=== PATIENT | female | born 1945 | race Caucasian/White ===

== ENCOUNTER 2016-09-21 13:37 | Outpatient (CLI) | payer MEDICARE, OTHER | END 2016-09-21 23:59 | DX: E11.9 Type 2 diabetes mellitus without complications (principal) ==

== ENCOUNTER 2016-12-06 07:30 | Outpatient (CLI) | payer MEDICARE, OTHER | END 2016-12-06 07:31 | disposition home or self-care (01) | DX: E11.9 Type 2 diabetes mellitus without complications (principal) ==

== ENCOUNTER 2017-03-12 15:53 | Outpatient (CLI) | payer MEDICARE, OTHER ==
[2017-03-12 13:22] LABS: ALBUMIN/GLOBULIN RATIO 1.1 (1.0-2.2); BILIRUBIN,TOTAL 0.3 mg/dL (0.2-1.0); CALCIUM 9.5 mg/dL (8.5-10.3); CREATININE 0.9 mg/dL (0.4-1.0); POTASSIUM 3.6 mmol/L (3.5-5.0); TOTAL PROTEIN 7.7 g/dL (6.7-8.2)
[2017-03-12 14:36] LABS: HEMOGLOBIN A1C 0.78 g/dL
== END 2017-03-12 15:54 | disposition home or self-care (01) ==
LOC: LAB.WCP 15:53
PROVIDERS: ATTEND Physician Assistant Medical
DX: E11.9 Type 2 diabetes mellitus without complications (principal)
CPT/HCPCS: 36415; 80053; 83036

== ENCOUNTER 2017-07-18 09:30 | Outpatient (CLI) | payer MEDICARE, OTHER ==
--- NOTE | 2017-07-25 07:21 | Mammography Report ---
EXAM: DIGITAL BILATERAL SCREENING MAMMOGRAM 07/18/2017. CLINICAL INDICATION: A 72-year-old for screening. COMPARISON: 07/2016, 07/2015, 07/2014, 05/2013, 03/2012, 03/2011, 03/2010. TECHNIQUE: Routine CC and MLO projections, as well as bilateral laterally exaggerated craniocaudal views were obtained of the breasts. FINDINGS: The breasts again demonstrate fatty replacement bilaterally. Punctate , typically benign calcifications are present. No suspicious masses, clustered microcalcifications, or regions of architectural distortion are identified. IMPRESSION: Benign findings. RECOMMENDATIONS: Routine annual screening unless otherwise clinically indicated. BIRADS 2: Benign findings. STANDARD QUALIFYING STATEMENTS 1. This examination was reviewed with the aid of Computed-Aided Detection (CAD). 2. A negative or benign imaging report should not delay biopsy if clinically suspicious findings are present. Consider surgical consultation if warranted. More than 5% of cancers are not identified by imaging. 3. Dense breasts may obscure an underlying neoplasm. TD: 07/19/2017 20:10 ISAC
== END 2017-07-18 09:31 | disposition home or self-care (01) ==
LOC: DI.N 09:30
PROVIDERS: ATTEND Physician Assistant Medical
DX: Z12.31 Encounter for screening mammogram for malignant neoplasm of breast (principal)
CPT/HCPCS: 77067

== ENCOUNTER 2017-07-30 07:04 | Outpatient (CLI) | payer MEDICARE, OTHER | END 2017-07-30 07:05 | disposition critical access hospital (66) | LOC: EMS 07:04 | PROVIDERS: ATTEND Surgery | DX: R19.7 Diarrhea, unspecified (principal) ==

== ENCOUNTER 2017-07-30 07:26 | Emergency (ER) | payer MEDICARE, OTHER ==
[2017-07-30 08:00] LABS: BASOPHILS % (AUTO) 0.1 %; EOSINOPHILS # (AUTO) 0.1 10^3/uL (0.0-0.7); EOSINOPHILS % (AUTO) 0.5 %; HCT - HEMATOCRIT 45.1 % (37.0-47.0); HGB - HEMOGLOBIN 15.4 g/dL (12.0-16.0); LYMPHOCYTES # (AUTO) 0.4 10^3/uL (1.5-3.5); MEAN CORPUSCULAR HEMOGLOBIN 31.5 pg (27.0-31.0); MEAN CORPUSCULAR HGB CONC 34.2 g/dL (32.0-36.0); MEAN CORPUSCULAR VOLUME 92.2 fL (81.0-99.0); MEAN PLATELET VOLUME 7.8 fL (7.9-10.8); MONOCYTES # (AUTO) 0.3 10^3/uL (0.0-1.0); MONOCYTES % (AUTO) 3.1 %; NEUTROPHILS # (AUTO) 9.9 10^3/uL (1.5-6.6); NEUTROPHILS % (AUTO) 92.3 %; RED CELL DISTRIBUTION WIDTH 14.5 % (12.0-15.0); UNCORRECTED WHITE BLOOD COUNT 10.7 x10^3/uL; WHITE BLOOD COUNT 10.7 x10^3/uL (4.8-10.8)
[2017-07-30 08:21] LABS: ALBUMIN/GLOBULIN RATIO 1.3 (1.0-2.2); BILIRUBIN,TOTAL 0.6 mg/dL (0.2-1.0); CALCIUM 9.4 mg/dL (8.5-10.3); POTASSIUM 3.6 mmol/L (3.5-5.0)
--- NOTE | 2017-07-30 08:40 | ED Physician Documentation ---
PD HPI NVD - Stated complaint Stated Complaint: DIARRHEA - Chief complaint Chief Complaint: General - History obtained from History obtained from: Patient, EMS - History of Present Illness Timing - onset: Today Timing - details: Gradual onset, Still present Associated symptoms: No: Fever, Abdominal pain Similar symptoms before: Has not had sx before Recently seen: Not recently seen - Additonal information Additional information: Patient is a 72 year old female who is presenting to the emergency department for diarrhea. Patient states that this morning for the last two hours she has had multiple episodes of watery diarrhea. Patient denies any blood or mucus in the diarrhea. Patient states that it would not stop so she called ems. Review of Systems Constitutional: denies: Fever, Chills, Sweats Eyes: reports: Reviewed and negative Ears: reports: Reviewed and negative Nose: denies: Rhinorrhea / runny nose, Congestion, Sinus pressure / pain Throat: denies: Sore throat Cardiac: denies: Chest pain / pressure, Palpitations Respiratory: denies: Cough, Wheezing GI: reports: Diarrhea. denies: Nausea, Vomiting : denies: Dysuria, Frequency Skin: denies: Rash, Lesions Musculoskeletal: denies: Neck pain, Back pain Neurologic: denies: Generalized weakness, Focal weakness, Numbness PD PAST MEDICAL HISTORY - Past Medical History Past Medical History: Yes Cardiovascular: Hypertension, High cholesterol Respiratory: Asthma Endocrine/Autoimmune: Type 2 diabetes, HyPOthyroidism Psych: Depression - Present Medications Home Medications: Ambulatory Orders Medication Instructions Recorded Confirmed Celecoxib [Celecoxib] 07/30/17 Clotrimazole 1% Cream [Lotrimin 1% 07/30/17 Cream] Felodipine [Felodipine ER] 07/30/17 Fluticasone 44 Mcg [Flovent] 07/30/17 07/30/17 Lisinopril [Lisinopril] 07/30/17 Ondansetron Odt [Zofran] 4 mg TL Q6H PRN #14 tablet 07/30/17 Simvastatin [Simvastatin] 07/30/17 hydroCHLOROthiazide [Hydrodiuril] 25 mg PO DAILY 07/30/17 07/30/17 - Allergies Allergies/Adverse Reactions: Allergies Allergy/AdvReac Type Severity Reaction Status Date / Time adhesive tape Allergy Rash Verified 07/30/17 07:36 meperidine [From Demerol] Allergy Unknown Verified 07/30/17 07:36 Penicillins Allergy Unknown Verified 07/30/17 07:36 propoxyphene [From Darvon] Allergy Unknown Verified 07/30/17 07:36 - Social History Does the pt smoke?: No Smoking Status: Never smoker PD ED PE NORMAL - Vitals Vital signs reviewed: Yes - General General: Alert and oriented X 3, No acute distress, Well developed/nourished - HEENT HEENT: Atraumatic, PERRL - Neck Neck: Supple, no meningeal sign, No JVD - Cardiac Cardiac: RRR, No murmur - Respiratory Respiratory: No respiratory distress, Clear bilaterally - Abdomen Abdomen: Soft - Derm Derm: Normal color, Warm and dry, No rash - Neuro Neuro: Alert and oriented X 3, No motor deficit, No sensory deficit, Normal speech - Psych Psych: Normal mood PD ED PE EXPANDED - HEENT HEENT: Dry mucous membranes - Abdomen Abdomen: Hyperactive BS. No: Tender to palpation, Rebound, Guarding Results - Vitals Vitals: Vital Signs - 24 hr 07/30/17 07:30 Temperature 35.8 C L Heart Rate 97 Respiratory 18 Rate Blood Pressure 157/87 H O2 Saturation 98 Oxygen O2 Source Room air - Labs Labs: Laboratory Tests 07/30/17 07/30/17 07:49 07:49 WBC 10.7 RBC 4.90 Hgb 15.4 Hct 45.1 MCV 92.2 MCH 31.5 H MCHC 34.2 RDW 14.5 Plt Count 309 MPV 7.8 L Neut # 9.9 H Lymph # 0.4 L [place] # 0.3 Eos # 0.1 Baso # 0.0 Absolute Nucleated RBC 0.00 Nucleated RBC % 0.0 Sodium 137 Potassium 3.6 Chloride 99 L Carbon Dioxide 26 Anion Gap 12.0 BUN 34 H Creatinine 1.0 Estimated GFR (MDRD) 54 L Glucose 188 H Calcium 9.4 Total Bilirubin 0.6 AST 37 ALT 34 Alkaline Phosphatase 67 Total Protein 8.0 Albumin 4.5 Globulin 3.5 Albumin/Globulin Ratio 1.3 Lipase 33 PD MEDICAL DECISION MAKING - ED course Complexity details: reviewed old records, reviewed results, re-evaluated patient , considered differential, d/w patient ED course: Patient was seen and examined at bedside. patient was well appearing and in no acute distress. labs were drawn and within normal limits. patient was able to tolerate PO without difficulty. patient required no further work up and was stable for discharge with outpatient follow up. Departure - Departure Disposition: 01 Home, Self Care Clinical Impression: Gastroenteritis Condition: Good Instructions: ED Gastroenteritis Viral Follow-Up: Elizabeth Matos PA-C [Primary Care Provider] - Within 3 Days Prescriptions: Ondansetron Odt [Zofran] 4 mg TL Q6H PRN #14 tablet PRN Reason: Nausea / Vomiting Comments: Your diagnostics today were within normal limits. there were no major abnormalities on your blood work. It is important that you stay well hydrated with an electrolyte solution. You can take an occasional immodium as well to help with the diarrhea. You may develop some nausea and vomiting as well as the disease progresses. You should follow up with your doctor if your symptoms persist for more than the next few days.
[2017-07-30 09:19] VITALS: BP 135/82
== END 2017-07-30 09:20 | disposition home or self-care (01) ==
LOC: EDUNIT# → ED 07:26
DX: K52.9 Noninfective gastroenteritis and colitis, unspecified (principal); I10 Essential (primary) hypertension; E78.00 Pure hypercholesterolemia, unspecified; E11.9 Type 2 diabetes mellitus without complications; E03.9 Hypothyroidism, unspecified; J45.909 Unspecified asthma, uncomplicated
CPT/HCPCS: 36415; 80053; 83690; 85025; 99283; 99284

== ENCOUNTER 2017-07-30 14:44 | Outpatient (CLI) | payer MEDICARE, OTHER | END 2017-07-30 14:45 | disposition short-term general hospital (02) | LOC: EMS 14:44 | PROVIDERS: ATTEND Surgery | DX: R19.7 Diarrhea, unspecified (principal); R42 Dizziness and giddiness; R53.1 Weakness | CPT/HCPCS: A0425; A0429; A0888 ==

== ENCOUNTER 2017-09-18 07:17 | Outpatient (CLI) | payer MEDICARE, OTHER ==
[2017-09-18 12:48] LABS: HEMOGLOBIN A1C 0.85 g/dL
[2017-09-18 12:54] LABS: ALBUMIN 4.1 g/dL (3.2-5.5); ALBUMIN/GLOBULIN RATIO 1.2 (1.0-2.2); ALKALINE PHOSPHATASE 59 IU/L (42-121); ALT ALANINE AMINOTRANSFERASE 27 IU/L (10-60); AST ASPARTATE AMINOTRANSFERASE 28 IU/L (10-42); BILIRUBIN,TOTAL 0.5 mg/dL (0.2-1.0); BUN - BLOOD UREA NITROGEN 26 mg/dL (6-20); CALCIUM 9.4 mg/dL (8.5-10.3); CARBON DIOXIDE - CO2 28 mmol/L (21-32); CHLORIDE 102 mmol/L (101-111); CHOL/HDL RATIO 2.5 (<4.4); CHOLESTEROL 158 mg/dL; GFR - MDRD 54 (>89); GLUCOSE 166 mg/dL (70-100); HDL CHOLESTEROL 62 mg/dL; LDL CHOLESTEROL,CALCULATED 66 mg/dL; LDL/HDL RATIO 1.1 (<4.4); SODIUM 138 mmol/L (135-145); TOTAL PROTEIN 7.5 g/dL (6.7-8.2); VLDL CHOLESTEROL 30 mg/dL
== END 2017-09-18 07:18 | disposition home or self-care (01) ==
LOC: LAB.WCP 07:17
PROVIDERS: ATTEND Physician Assistant Medical
DX: E11.9 Type 2 diabetes mellitus without complications (principal)
CPT/HCPCS: 36415; 80053; 80061; 83036; 83721

== ENCOUNTER 2017-12-25 08:00 | Outpatient (CLI) | payer MEDICARE, OTHER ==
[2017-12-25 12:35] LABS: ALBUMIN 4.1 g/dL (3.2-5.5); ALBUMIN/GLOBULIN RATIO 1.3 (1.0-2.2); ALKALINE PHOSPHATASE 55 IU/L (42-121); ALT ALANINE AMINOTRANSFERASE 29 IU/L (10-60); AST ASPARTATE AMINOTRANSFERASE 27 IU/L (10-42); BILIRUBIN,TOTAL 0.6 mg/dL (0.2-1.0); BUN - BLOOD UREA NITROGEN 31 mg/dL (6-20); CALCIUM 8.9 mg/dL (8.5-10.3); CARBON DIOXIDE - CO2 26 mmol/L (21-32); CHLORIDE 99 mmol/L (101-111); GFR - MDRD 54 (>89); GLUCOSE 145 mg/dL (70-100); SODIUM 135 mmol/L (135-145); TOTAL PROTEIN 7.3 g/dL (6.7-8.2)
[2017-12-25 12:48] LABS: HB2 TOTAL 15.8 g/dL; HEMOGLOBIN A1C 0.91 g/dL; HEMOGLOBIN A1C % 7.4 % (4.6-6.2)
== END 2017-12-25 08:01 | disposition home or self-care (01) ==
LOC: LAB.WCP 08:00
PROVIDERS: ATTEND Physician Assistant Medical
DX: E11.9 Type 2 diabetes mellitus without complications (principal); E03.9 Hypothyroidism, unspecified
CPT/HCPCS: 36415; 80053; 83036; 84443

== ENCOUNTER 2018-01-01 10:20 | Outpatient (CLI) | payer MEDICARE, OTHER | END 2018-01-01 10:21 | disposition home or self-care (01) | LOC: LAB.WCP 10:20 | PROVIDERS: ATTEND Physician Assistant Medical | DX: L02.91 Cutaneous abscess, unspecified (principal) | CPT/HCPCS: 87070; 87205 ==

== ENCOUNTER 2018-04-04 07:02 | Outpatient (CLI) | payer MEDICARE, OTHER ==
[2018-04-04 13:44] LABS: ALBUMIN 4.4 g/dL (3.2-5.5); ALBUMIN/GLOBULIN RATIO 1.3 (1.0-2.2); ALKALINE PHOSPHATASE 54 IU/L (42-121); ALT ALANINE AMINOTRANSFERASE 29 IU/L (10-60); AST ASPARTATE AMINOTRANSFERASE 31 IU/L (10-42); BILIRUBIN,TOTAL 0.4 mg/dL (0.2-1.0); BUN - BLOOD UREA NITROGEN 31 mg/dL (6-20); CALCIUM 9.6 mg/dL (8.5-10.3); CARBON DIOXIDE - CO2 25 mmol/L (21-32); CHLORIDE 100 mmol/L (101-111); CHOL/HDL RATIO 2.1 (<4.4); CHOLESTEROL 145 mg/dL; CREATININE 0.9 mg/dL (0.4-1.0); GFR - MDRD 61 (>89); GLUCOSE 159 mg/dL (70-100); HDL CHOLESTEROL 69 mg/dL; LDL CHOLESTEROL,CALCULATED 51 mg/dL; LDL/HDL RATIO 0.7 (<4.4); SODIUM 136 mmol/L (135-145); TOTAL PROTEIN 7.8 g/dL (6.7-8.2); VLDL CHOLESTEROL 25 mg/dL
[2018-04-04 14:06] LABS: HB2 TOTAL 16.3 g/dL; HEMOGLOBIN A1C 0.89 g/dL; HEMOGLOBIN A1C % 7.1 % (4.6-6.2)
== END 2018-04-04 07:03 | disposition home or self-care (01) ==
LOC: LAB.WCP 07:02
PROVIDERS: ATTEND Physician Assistant Medical
DX: E11.9 Type 2 diabetes mellitus without complications (principal)
CPT/HCPCS: 36415; 80053; 80061; 83036; 83721

== ENCOUNTER 2018-07-08 12:03 | Outpatient (CLI) | payer MEDICARE, OTHER ==
[2018-07-08 14:51] LABS: ALBUMIN 4.3 g/dL (3.2-5.5); ALBUMIN/GLOBULIN RATIO 1.3 (1.0-2.2); BILIRUBIN,TOTAL 0.6 mg/dL (0.2-1.0); TOTAL PROTEIN 7.7 g/dL (6.7-8.2)
[2018-07-08 15:04] LABS: THYROID STIMULATING HORMONE 1.83 uIU/mL (0.34-5.60)
[2018-07-08 15:20] LABS: BASOPHILS % (AUTO) 0.9 %; EOSINOPHILS # (AUTO) 0.1 10^3/uL (0.0-0.7); EOSINOPHILS % (AUTO) 2.4 %; HGB - HEMOGLOBIN 14.5 g/dL (12.0-16.0); LYMPHOCYTES # (AUTO) 1.6 10^3/uL (1.5-3.5); LYMPHOCYTES % (AUTO) 31.8 %; MEAN CORPUSCULAR HEMOGLOBIN 32.6 pg (27.0-31.0); MEAN CORPUSCULAR HGB CONC 34.1 g/dL (32.0-36.0); MEAN CORPUSCULAR VOLUME 95.4 fL (81.0-99.0); MEAN PLATELET VOLUME 8.6 fL (7.9-10.8); MONOCYTES # (AUTO) 0.4 10^3/uL (0.0-1.0); NEUTROPHILS # (AUTO) 2.8 10^3/uL (1.5-6.6); NEUTROPHILS % (AUTO) 56.9 %; PLT - PLATELET COUNT 345 10^3/uL (130-450); RED BLOOD COUNT 4.44 10^6/uL (4.20-5.40); RED CELL DISTRIBUTION WIDTH 13.2 % (12.0-15.0)
[2018-07-08 15:41] LABS: HB2 TOTAL 15.8 g/dL; HEMOGLOBIN A1C 0.83 g/dL
[2018-07-08 15:53] LABS: FOLATE > 49.60 ng/mL (5.90 - >24.8)
== END 2018-07-08 23:59 ==
LOC: LAB.WCP 12:03
PROVIDERS: ATTEND Physician Assistant Medical
DX: R41.3 Other amnesia (principal); E11.9 Type 2 diabetes mellitus without complications
CPT/HCPCS: 36415; 80053; 82607; 82746; 83036; 84443; 85025

== ENCOUNTER 2018-07-23 10:47 | Outpatient (CLI) | payer MEDICARE, OTHER ==
--- NOTE | 2018-07-24 08:40 | Mammography Report ---
Reason: SCREENING MAMMO Procedure Date: 07/23/2018 Accession Number: [id number] / [id number] Procedure: MGN - Screening Mammo Dig Bilat CPT Code: FULL RESULT: EXAM: Screening Mammo Dig Bilat DATE: 07/23/2018 11:20 AM CLINICAL HISTORY: Screening. Family history breast cancer in aunt age unknown. No reported personal history of breast cancer. TECHNIQUE: Bilateral CC and MLO views were obtained. COMPARISON: 07/18/2017 through 07/28/2014 FINDINGS: The breasts demonstrate diffuse fatty replacement bilaterally. Bilateral breasts: There are no suspicious masses, calcifications or areas of distortion. IMPRESSION: Negative examination RECOMMENDATION: Routine annual screening unless otherwise clinically indicated. BI-RADS CATEGORY 1: Negative STANDARD QUALIFYING STATEMENTS: 1. This examination was reviewed with the aid of Computer-Aided Detection (CAD). 2. A negative or benign imaging report should not preclude biopsy if clinically suspicious findings are present. 3. Dense breasts may obscure an underlying neoplasm. 4. This examination was reviewed without the aid of 3D breast imaging (tomosynthesis).
== END 2018-07-23 10:48 | disposition home or self-care (01) ==
LOC: DI.N 10:47
DX: Z12.31 Encounter for screening mammogram for malignant neoplasm of breast (principal); Z80.3 Family history of malignant neoplasm of breast
CPT/HCPCS: 77067

== ENCOUNTER 2018-10-22 08:00 | Outpatient (CLI) | payer MEDICARE, OTHER ==
[2018-10-22 12:37] LABS: ALBUMIN 4.4 g/dL (3.2-5.5); ALBUMIN/GLOBULIN RATIO 1.3 (1.0-2.2); ALKALINE PHOSPHATASE 61 IU/L (42-121); ALT ALANINE AMINOTRANSFERASE 23 IU/L (10-60); AST ASPARTATE AMINOTRANSFERASE 26 IU/L (10-42); BILIRUBIN,TOTAL 0.5 mg/dL (0.2-1.0); BUN - BLOOD UREA NITROGEN 34 mg/dL (6-20); CALCIUM 9.4 mg/dL (8.5-10.3); CARBON DIOXIDE - CO2 26 mmol/L (21-32); CHLORIDE 99 mmol/L (101-111); CHOL/HDL RATIO 2.2 (<4.4); CHOLESTEROL 151 mg/dL; CREATININE 0.9 mg/dL (0.4-1.0); GFR - MDRD 61 (>89); GLUCOSE 170 mg/dL (70-100); HDL CHOLESTEROL 70 mg/dL; LDL CHOLESTEROL,CALCULATED 50 mg/dL; LDL/HDL RATIO 0.7 (<4.4); SODIUM 135 mmol/L (135-145); TOTAL PROTEIN 7.9 g/dL (6.7-8.2); VLDL CHOLESTEROL 31 mg/dL
[2018-10-22 13:06] LABS: HEMOGLOBIN A1C 0.92 g/dL; HEMOGLOBIN A1C % 7.4 % (4.6-6.2)
== END 2018-10-22 23:59 | disposition home or self-care (01) ==
LOC: LAB.WCP 08:00
PROVIDERS: ATTEND Physician Assistant Medical
DX: E11.9 Type 2 diabetes mellitus without complications (principal)
CPT/HCPCS: 36415; 80053; 80061; 83036; 83721

== ENCOUNTER 2018-10-31 08:00 | Outpatient (CLI) | payer MEDICARE, OTHER | END 2018-10-31 23:59 | disposition home or self-care (01) | LOC: LAB.R 08:00 | PROVIDERS: ATTEND Physician Assistant Medical | DX: R21 Rash and other nonspecific skin eruption (principal) | CPT/HCPCS: 87070; 87075; 87205 ==

== ENCOUNTER 2018-11-22 12:04 | Outpatient (CLI) | payer MEDICARE, OTHER | END 2018-11-22 12:05 | disposition home or self-care (01) | LOC: DI 12:04 | PROVIDERS: ATTEND Physician Assistant Medical | DX: Z53.9 Procedure and treatment not carried out, unspecified reason (principal) ==

== ENCOUNTER 2018-12-25 07:31 | Outpatient (CLI) | payer MEDICARE, OTHER ==
[2018-12-25 13:58] LABS: CALCIUM 9.6 mg/dL (8.5-10.3)
[2018-12-25 14:31] LABS: HB2 TOTAL 15.8 g/dL; HEMOGLOBIN A1C 0.92 g/dL; HEMOGLOBIN A1C % 7.5 % (4.6-6.2)
== END 2018-12-25 07:32 | disposition home or self-care (01) ==
LOC: LAB.WCP 07:31
PROVIDERS: ATTEND Physician Assistant Medical
DX: E11.9 Type 2 diabetes mellitus without complications (principal)
CPT/HCPCS: 36415; 80048; 83036

== ENCOUNTER 2019-03-26 08:00 | Outpatient (CLI) | payer MEDICARE, OTHER ==
[2019-03-26 12:39] LABS: ALBUMIN 4.2 g/dL (3.2-5.5); ALBUMIN/GLOBULIN RATIO 1.3 (1.0-2.2); ALKALINE PHOSPHATASE 46 IU/L (42-121); ALT ALANINE AMINOTRANSFERASE 32 IU/L (10-60); AST ASPARTATE AMINOTRANSFERASE 30 IU/L (10-42); BILIRUBIN,TOTAL 0.5 mg/dL (0.2-1.0); BUN - BLOOD UREA NITROGEN 27 mg/dL (6-20); CALCIUM 9.5 mg/dL (8.5-10.3); CARBON DIOXIDE - CO2 26 mmol/L (21-32); CHLORIDE 99 mmol/L (101-111); CHOLESTEROL 129 mg/dL; CREATININE 1.1 mg/dL (0.4-1.0); GFR - MDRD 48 (>89); GLUCOSE 165 mg/dL (70-100); HDL CHOLESTEROL 66 mg/dL; LDL CHOLESTEROL,CALCULATED 42 mg/dL; LDL/HDL RATIO 0.6 (<4.4); SODIUM 137 mmol/L (135-145); TOTAL PROTEIN 7.5 g/dL (6.7-8.2); VLDL CHOLESTEROL 21 mg/dL
[2019-03-26 12:42] LABS: HB2 TOTAL 14.8 g/dL; HEMOGLOBIN A1C 0.77 g/dL; HEMOGLOBIN A1C % 6.9 % (4.6-6.2)
== END 2019-03-26 23:59 | disposition home or self-care (01) ==
LOC: LAB.WCP 08:00
PROVIDERS: ATTEND Physician Assistant Medical
DX: E11.9 Type 2 diabetes mellitus without complications (principal)
CPT/HCPCS: 36415; 80053; 80061; 83036; 83721

== ENCOUNTER 2019-04-09 13:00 | Outpatient (CLI) | payer MEDICARE, OTHER ==
[2019-04-09 14:06] LABS: BASOPHILS # (AUTO) 0.1 10^3/uL (0.0-0.1); BASOPHILS % (AUTO) 0.7 %; EOSINOPHILS % (AUTO) 0.6 %; HGB - HEMOGLOBIN 13.7 g/dL (12.0-16.0); LYMPHOCYTES # (AUTO) 1.5 10^3/uL (1.5-3.5); LYMPHOCYTES % (AUTO) 21.3 %; MEAN CORPUSCULAR HEMOGLOBIN 32.5 pg (27.0-31.0); MEAN CORPUSCULAR HGB CONC 34.2 g/dL (32.0-36.0); MONOCYTES # (AUTO) 0.5 10^3/uL (0.0-1.0); MONOCYTES % (AUTO) 7.1 %; NEUTROPHILS % (AUTO) 69.9 %; PLT - PLATELET COUNT 334 10^3/uL (130-450); RED BLOOD COUNT 4.22 10^6/uL (4.20-5.40); RED CELL DISTRIBUTION WIDTH 13.2 % (12.0-15.0); WHITE BLOOD COUNT 7.2 x10^3/uL (4.8-10.8)
[2019-04-09 14:25] LABS: HB2 TOTAL 14.3 g/dL; HEMOGLOBIN A1C 0.78 g/dL; HEMOGLOBIN A1C % 7.1 % (4.6-6.2)
[2019-04-09 14:43] LABS: CALCIUM 9.7 mg/dL (8.5-10.3); CREATININE 1.3 mg/dL (0.4-1.0)
== END 2019-04-09 13:01 | disposition home or self-care (01) ==
LOC: RT 13:00
PROVIDERS: ATTEND Physician Assistant Medical
DX: Z01.818 Encounter for other preprocedural examination (principal); R73.9 Hyperglycemia, unspecified; Z51.81 Encounter for therapeutic drug level monitoring; E61.1 Iron deficiency; N93.0 Postcoital and contact bleeding
CPT/HCPCS: 36415; 80048; 83036; 85025; 93005

== ENCOUNTER 2019-06-25 07:00 | Outpatient (CLI) | payer MEDICARE, OTHER ==
[2019-06-25 16:17] LABS: CALCIUM 9.7 mg/dL (8.5-10.3)
[2019-06-25 17:30] LABS: HB2 TOTAL 14.6 g/dL; HEMOGLOBIN A1C 0.72 g/dL; HEMOGLOBIN A1C % 6.7 % (4.6-6.2)
== END 2019-06-25 23:59 | disposition home or self-care (01) ==
LOC: LAB.WCP 07:00
PROVIDERS: ATTEND Physician Assistant Medical
DX: E11.9 Type 2 diabetes mellitus without complications (principal)
CPT/HCPCS: 36415; 80048; 83036

== ENCOUNTER 2019-09-29 14:43 | Outpatient (CLI) | payer MEDICARE, OTHER | END 2019-09-29 14:44 | disposition short-term general hospital (02) | LOC: EMS 14:43 | PROVIDERS: ATTEND Surgery | DX: R53.1 Weakness (principal); R51 Headache; R53.83 Other fatigue | CPT/HCPCS: A0425; A0429 ==

== ENCOUNTER 2019-10-21 07:37 | Outpatient (CLI) | payer MEDICARE, OTHER ==
[2019-10-21 12:45] LABS: ALBUMIN 4.3 g/dL (3.2-5.5); ALBUMIN/GLOBULIN RATIO 1.2 (1.0-2.2); ALKALINE PHOSPHATASE 65 IU/L (42-121); ALT ALANINE AMINOTRANSFERASE 17 IU/L (10-60); AST ASPARTATE AMINOTRANSFERASE 21 IU/L (10-42); BILIRUBIN,TOTAL 0.2 mg/dL (0.2-1.0); BUN - BLOOD UREA NITROGEN 30 mg/dL (6-20); CALCIUM 9.8 mg/dL (8.5-10.3); CARBON DIOXIDE - CO2 25 mmol/L (21-32); CHLORIDE 103 mmol/L (101-111); CHOL/HDL RATIO 2.2 (<4.4); CHOLESTEROL 158 mg/dL; GFR - MDRD 54 (>89); GLUCOSE 139 mg/dL (70-100); HDL CHOLESTEROL 73 mg/dL; LDL CHOLESTEROL,CALCULATED 62 mg/dL; LDL/HDL RATIO 0.8 (<4.4); SODIUM 140 mmol/L (135-145); TOTAL PROTEIN 7.9 g/dL (6.7-8.2); VLDL CHOLESTEROL 23 mg/dL
[2019-10-21 12:53] LABS: HB2 TOTAL 14.5 g/dL; HEMOGLOBIN A1C 0.62 g/dL; HEMOGLOBIN A1C % 6.1 % (4.6-6.2)
== END 2019-10-21 23:59 | disposition home or self-care (01) ==
LOC: LAB.WCP 07:37
PROVIDERS: ATTEND Physician Assistant Medical
DX: E11.9 Type 2 diabetes mellitus without complications (principal)
CPT/HCPCS: 36415; 80053; 80061; 83036; 83721

== ENCOUNTER 2019-11-02 16:15 | Outpatient (CLI) | payer MEDICARE, OTHER | END 2019-11-02 16:16 | disposition short-term general hospital (02) | LOC: EMS 16:15 | PROVIDERS: ATTEND Surgery | DX: R10.30 Lower abdominal pain, unspecified (principal); R19.7 Diarrhea, unspecified; R42 Dizziness and giddiness | CPT/HCPCS: A0425; A0427; A0888 ==

== ENCOUNTER 2020-02-04 12:55 | Outpatient (CLI) | payer MEDICARE, OTHER ==
--- NOTE | 2020-02-04 15:29 | DEXA Report ---
Reason: POST MENOPAUSAL Procedure Date: 02/04/2020 Accession Number: [id number] / [id number] Procedure: DEX - Dexa Spine and/or Hip CPT Code: Final Report FULL RESULT: PROCEDURE: Dexa Spine and/or Hip INDICATIONS: POST MENOPAUSAL TECHNIQUE: Dual energy x-ray absorptiometry (DXA) was performed on a [employer] System. Regions measured are the AP Spine, femoral neck, and if needed forearm. COMPARISON: None. FINDINGS: Lumbar Spine: Bone Mineral Density 1.364 g/cm/cm,T score 1.4, normal Hip: Bone Mineral Density 1.053 g/cm/cm,T score 0.4, normal Femoral Neck: Bone Mineral Density 0.915 g/cm/cm, T score -0.9, normal (T score greater or equal to -1.0: NORMAL) (T score from -1.1 to -2.4: OSTEOPENIA) (T score less than or equal to -2.5 to: OSTEOPOROSIS) Impression: Normal exam without evidence of osteopenia or osteoporosis. Patients with diagnosis of osteoporosis or osteopenia should have regular bone mineral density assessment. For those eligible for Medicare, routine testing is allowed once every 2 years. Testing frequency can be increased for patients who have rapidly progressing disease or for those who are receiving medical therapy to restore bone mass. Reviewed by: Cheryle Bingham MD, PhD on 02/04/2020 3:27 PM PDT Approved by: Cheryle Bingham MD, PhD on 02/04/2020 3:27 PM PDT Station ID: [id number]
== END 2020-02-04 12:56 | disposition home or self-care (01) ==
LOC: DI 12:55
PROVIDERS: ATTEND Physician Assistant Medical
DX: Z78.0 Asymptomatic menopausal state (principal)
CPT/HCPCS: 77080

== ENCOUNTER 2020-05-18 08:00 | Outpatient (CLI) | payer MEDICARE, OTHER ==
[2020-05-18 12:56] LABS: ALBUMIN 4.4 g/dL (3.2-5.5); ALBUMIN/GLOBULIN RATIO 1.3 (1.0-2.2); ALKALINE PHOSPHATASE 69 IU/L (42-121); ALT ALANINE AMINOTRANSFERASE 30 IU/L (10-60); AST ASPARTATE AMINOTRANSFERASE 27 IU/L (10-42); BILIRUBIN,TOTAL 0.5 mg/dL (0.2-1.0); BUN - BLOOD UREA NITROGEN 29 mg/dL (6-20); CALCIUM 9.7 mg/dL (8.5-10.3); CARBON DIOXIDE - CO2 26 mmol/L (21-32); CHLORIDE 101 mmol/L (101-111); CHOLESTEROL 133 mg/dL; CREATININE 0.9 mg/dL (0.4-1.0); GLUCOSE 107 mg/dL (70-100); HDL CHOLESTEROL 65 mg/dL; LDL CHOLESTEROL,CALCULATED 54 mg/dL; LDL/HDL RATIO 0.8 (<4.4); SODIUM 138 mmol/L (135-145); TOTAL PROTEIN 7.8 g/dL (6.7-8.2); VLDL CHOLESTEROL 14 mg/dL
[2020-05-18 15:00] LABS: HEMOGLOBIN A1c% 6.1 % (4.27-6.07)
== END 2020-05-18 23:59 | disposition home or self-care (01) ==
LOC: LAB.WCP 08:00
PROVIDERS: ATTEND Physician Assistant Medical
DX: E11.9 Type 2 diabetes mellitus without complications (principal); I10 Essential (primary) hypertension; E78.5 Hyperlipidemia, unspecified
CPT/HCPCS: 36415; 80053; 80061; 83036; 83721; 84443

== ENCOUNTER 2021-01-05 08:00 | Outpatient (CLI) | payer MEDICARE, OTHER ==
[2021-01-05 12:21] LABS: CREATININE 0.8 mg/dL (0.4-1.0); POTASSIUM 4.3 mmol/L (3.5-5.0)
[2021-01-05 12:38] LABS: ESTIMATED AVERAGE GLUCOSE 123 mg/dL (70-100); HEMOGLOBIN A1c% 5.9 % (4.27-6.07)
== END 2021-01-05 23:59 | disposition home or self-care (01) ==
LOC: LAB.WCP 08:00
PROVIDERS: ATTEND Physician Assistant Medical
DX: E11.9 Type 2 diabetes mellitus without complications (principal)
CPT/HCPCS: 36415; 80048; 83036

== ENCOUNTER 2021-01-07 08:00 | Outpatient (CLI) | payer MEDICARE, OTHER ==
[2021-01-07 18:03] LABS: CREATININE,URINE 101.8 mg/dL; MICROALBUM/CREATININE RATIO,UR 9.8 ug/mg (<30.0)
== END 2021-01-07 23:59 | disposition home or self-care (01) ==
LOC: LAB.WCP 08:00
PROVIDERS: ATTEND Physician Assistant Medical
DX: E11.9 Type 2 diabetes mellitus without complications (principal)
CPT/HCPCS: 82043; 82570

== ENCOUNTER 2021-01-30 00:58 | Outpatient (CLI) | payer MEDICARE, OTHER | END 2021-01-30 00:59 | disposition critical access hospital (66) | LOC: EMS 00:58 | DX: R51.9 Headache, unspecified (principal); R41.0 Disorientation, unspecified | CPT/HCPCS: A0425; A0429 ==

== ENCOUNTER 2021-01-30 01:15 | Emergency (ER) | payer MEDICARE, OTHER ==
--- NOTE | 2021-01-30 01:27 | ED Physician Documentation ---
PD HPI ALTERED MENTAL STATUS - Stated complaint Stated Complaint: LETHARGIC, RT SIDE DROOP - Chief complaint Chief Complaint: General - History obtained from History obtained from: Patient, EMS - History of Present Illness Timing - onset: Today (about noon, patient noted onset of feeling weak, ill, lightheaded. Worsened through the day. Her son called her short while ago and noted her sounding confused, so called EMS. 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 No: Recent med change, Recent illness, Recent injury Basline status: Alert and oriented X 3, Ambulatory Similar symptoms before: Has not had sx before Recently seen: Not recently seen Review of Systems Constitutional: denies: Fever, Chills Nose: denies: Rhinorrhea / runny nose, Congestion Throat: denies: Sore throat Respiratory: denies: Cough PD PAST MEDICAL HISTORY - Past Medical History Cardiovascular: Hypertension, High cholesterol Respiratory: Asthma Endocrine/Autoimmune: Type 2 diabetes, HyPOthyroidism Psych: Depression - Present Medications Home Medications: Ambulatory Orders Medication Instructions Recorded Confirmed Felodipine [Felodipine ER] 5 mg PO DAILY 07/30/17 01/30/21 Simvastatin 20 mg PO DAILY 07/30/17 01/30/21 lisinopriL [Lisinopril] 20 mg PO DAILY PM 07/30/17 01/30/21 Calcium Carbonate [Calcium] 600 mg PO DAILY 01/30/21 01/30/21 Ergocalciferol (Vitamin D2) 50 mg PO DAILY 01/30/21 01/30/21 [Vitamin D2] Levothyroxine Sodium [Synthroid] 75 mcg PO DAILY 01/30/21 01/30/21 diphenhydrAMINE [Benadryl] 25 mg PO DAILY 01/30/21 01/30/21 - Allergies Allergies/Adverse Reactions: Allergies Allergy/AdvReac Type Severity Reaction Status Date / Time adhesive tape Allergy Rash Verified 01/30/21 03:57 meperidine [From Demerol] Allergy Unknown Verified 01/30/21 03:57 Penicillins Allergy Unknown Verified 01/30/21 03:57 propoxyphene [From Darvon] Allergy Unknown Verified 01/30/21 03:57 - Social History Does the pt smoke?: No Smoking Status: Never smoker PD ED PE NORMAL - Vitals Vital signs reviewed: Yes - General General: Alert and oriented X 3, No acute distress (seems somewhat somnolent.), Well developed/nourished - HEENT HEENT: PERRL, EOMI, Pharynx benign - Neck Neck: Supple, no meningeal sign, No adenopathy - Cardiac Cardiac: RRR, No murmur - Respiratory Respiratory: Clear bilaterally - Abdomen Abdomen: Soft, Non tender - Back Back: No CVA TTP - Derm Derm: Normal color, Warm and dry - Extremities Extremities: No tenderness to palpate, Normal ROM s pain, No edema, No calf tenderness / cord - Neuro Neuro: Alert and oriented X 3 (but a bit sluggish answering), No motor deficit, No sensory deficit, Normal speech Eye Opening: Spontaneous Motor: Obeys Commands Verbal: Confused GCS Score: 14 Results - Vitals Vitals: Vital Signs - 24 hr 01/30/21 01/30/21 01/30/21 01:20 03:22 04:16 Temperature 36.7 C Heart Rate 72 64 54 L Respiratory 16 16 14 Rate Blood Pressure 149/74 H 146/67 H 144/63 H O2 Saturation 97 98 100 01/30/21 04:36 Temperature 36.2 C L Heart Rate 52 L Respiratory 14 Rate Blood Pressure 144/63 H O2 Saturation 97 Oxygen O2 Source Room air - EKG (time done) 01:31 Rate: Rate (enter#) (71) Rhythm: NSR [place]: Normal Intervals: RBBB Ischemia: Non specific changes. No: ST elevation c/w ischemia - Labs Labs: Laboratory Tests 01/30/21 01/30/21 01/30/21 01:47 02:50 02:50 WBC 5.6 RBC 4.39 Hgb 14.3 Hct 42.3 MCV 96.4 MCH 32.6 H MCHC 33.8 RDW 13.5 Plt Count 264 MPV 10.5 Neut # (Auto) 3.2 Lymph # (Auto) 1.7 [place] # (Auto) 0.6 Eos # (Auto) 0.0 Baso # (Auto) 0.0 Absolute Nucleated RBC 0.00 Nucleated RBC % 0.0 Sodium 138 Potassium 3.9 Chloride 102 Carbon Dioxide 25 Anion Gap 11.0 BUN 30 H Creatinine 0.9 Estimated GFR (MDRD) 61 L Glucose 112 H Lactic Acid Calcium 9.5 Magnesium 2.1 Total Bilirubin 0.5 AST 21 ALT 27 Alkaline Phosphatase 78 Total Creatine Kinase 70 Troponin I High Sens B-Natriuretic Peptide Total Protein 7.3 Albumin 4.2 Globulin 3.1 Albumin/Globulin Ratio 1.4 Lipase 46 Urine Color YELLOW Urine Clarity CLEAR Urine pH 5.5 Ur Specific [place] 1.015 Urine Protein NEGATIVE Urine Glucose (UA) NEGATIVE Urine Ketones TRACE Urine Occult Blood NEGATIVE Urine Nitrite NEGATIVE Urine Bilirubin NEGATIVE Urine Urobilinogen 0.2 (NORMAL) Ur Leukocyte Esterase TRACE H Urine RBC 0-5 Urine WBC 0-3 Ur Squamous Epith Cells MOD Squamous H Urine Bacteria Few Ur Microscopic Review INDICATED Urine Culture Comments NOT INDICATED 01/30/21 01/30/21 01/30/21 02:50 02:50 02:50 WBC RBC Hgb Hct MCV MCH MCHC RDW Plt Count MPV Neut # (Auto) Lymph # (Auto) [place] # (Auto) Eos # (Auto) Baso # (Auto) Absolute Nucleated RBC Nucleated RBC % Sodium Potassium Chloride Carbon Dioxide Anion Gap BUN Creatinine Estimated GFR (MDRD) Glucose Lactic Acid 0.8 Calcium Magnesium Total Bilirubin AST ALT Alkaline Phosphatase Total Creatine Kinase Troponin I High Sens 6.3 B-Natriuretic Peptide 24 Total Protein Albumin Globulin Albumin/Globulin Ratio Lipase Urine Color Urine Clarity Urine pH Ur Specific [place] Urine Protein Urine Glucose (UA) Urine Ketones Urine Occult Blood Urine Nitrite Urine Bilirubin Urine Urobilinogen Ur Leukocyte Esterase Urine RBC Urine WBC Ur Squamous Epith Cells Urine Bacteria Ur Microscopic Review Urine Culture Comments - Rads (name of study) head CT Radiology: Prelim report reviewed (no acute process), See rad report chest xray Radiology: Prelim report reviewed (no infiltrates), See rad report PD MEDICAL DECISION MAKING - ED course Complexity details: reviewed results, re-evaluated patient (much better with IV fluids. ), considered differential (general weakness and confusion, gradual onset since noon today. Does not sound like stroke, so did not continue the Code Stroke that Medics called from field. Consider heat effect, infections, ICH, lytes problem, etc. ), d/w patient Departure - Departure Disposition: 01 Home, Self Care Clinical Impression: Dehydration, Confusion Heat exhaustion Qualifiers: Encounter type: initial encounter Qualified Code(s): T67.5XXA - Heat exhaustion, unspecified, initial encounter Condition: Stable Follow-Up: Elizabeth Matos PA-C [Primary Care Provider] - Comments: I believe your symptoms relate to dehydration and heat exposure (called heat exhaustion). Your temperature was normal coming in here, so not true heat stroke. Though your body temp could have been elevated earlier. Stay well hydrated and cool the next few days. Your testing here did not show any signs of infections/sepsis, heart attack/heart failure, electrolyte problems. Your head CT did not show any bleeding, swelling, tumors, nor obvious stroke. You seem to be doing better now. Continue usual activity/ medications. Return if problems/recurrent or new symptoms. Discharge Date/Time: 01/30/21 04:49
[2021-01-30 01:54] LABS: BILIRUBIN,URINE NEGATIVE (NEGATIVE); GLUCOSE, URINE (UA) NEGATIVE (NEGATIVE); KETONES,URINE (UA) TRACE mg/dL (NEGATIVE); LEUKOCYTE ESTERASE, URINE TRACE (NEGATIVE); NITRITE,URINE NEGATIVE (NEGATIVE); OCCULT BLOOD,URINE NEGATIVE (NEGATIVE); PH,URINE 5.5 PH (5.0-7.5); PROTEIN,URINE NEGATIVE (NEGATIVE); UROBILINOGEN,URINE 0.2 (NORMAL) E.U./dL (NORMAL)
[2021-01-30 01:59] LABS: CLARITY,URINE CLEAR (CLEAR)
[2021-01-30 02:06] LABS: WBC,URINE 0-3 /HPF (0-5)
[2021-01-30 02:07] LABS: BACTERIA,URINE Few /HPF (None Seen); RBC,URINE 0-5 /HPF (0-5); SQUAMOUS EPITHELIAL CELL,UR MOD Squamous (<= Few)
[2021-01-30 02:59] LABS: BASOPHILS % (AUTO) 0.5 %; EOSINOPHILS % (AUTO) 0.5 %; HCT - HEMATOCRIT 42.3 % (37.0-47.0); HGB - HEMOGLOBIN 14.3 g/dL (12.0-16.0); LYMPHOCYTES # (AUTO) 1.7 10^3/uL (1.5-3.5); LYMPHOCYTES % (AUTO) 30.8 %; MEAN CORPUSCULAR HEMOGLOBIN 32.6 pg (27.0-31.0); MEAN CORPUSCULAR HGB CONC 33.8 g/dL (32.0-36.0); MEAN CORPUSCULAR VOLUME 96.4 fL (81.0-99.0); MEAN PLATELET VOLUME 10.5 fL (7.9-10.8); MONOCYTES # (AUTO) 0.6 10^3/uL (0.0-1.0); NEUTROPHILS # (AUTO) 3.2 10^3/uL (1.5-6.6); PLT - PLATELET COUNT 264 10^3/uL (130-450); RED BLOOD COUNT 4.39 10^6/uL (4.20-5.40); RED CELL DISTRIBUTION WIDTH 13.5 % (12.0-15.0); WHITE BLOOD COUNT 5.6 x10^3/uL (4.8-10.8)
[2021-01-30 03:09] LABS: ALBUMIN 4.2 g/dL (3.2-5.5); ALBUMIN/GLOBULIN RATIO 1.4 (1.0-2.2); BILIRUBIN,TOTAL 0.5 mg/dL (0.2-1.0); CALCIUM 9.5 mg/dL (8.5-10.3); CREATININE 0.9 mg/dL (0.4-1.0); MAGNESIUM 2.1 mg/dL (1.7-2.8); POTASSIUM 3.9 mmol/L (3.5-5.0); TOTAL PROTEIN 7.3 g/dL (6.7-8.2)
[2021-01-30] MEDS ORDERED: SODIUM CHLORIDE 0.9% 1,000 ML IV STA (03:42)
[2021-01-30] MEDS ORDERED: ACETAMINOPHEN 325 MG TABLET PO STA (03:42)
[2021-01-30] MEDS ORDERED: KETOROLAC 15 MG/ML VIAL IVP STA (03:42)
[2021-01-30 04:16] VITALS: BP 144/63
--- NOTE | 2021-01-30 07:39 | CT Report ---
PROCEDURE: HEAD WO INDICATIONS: headache, weakness TECHNIQUE: Noncontrast 4.5 mm thick angled axial sections acquired from the foramen magnum to the vertex. For r adiation dose reduction, the following was used: automated exposure control, adjustment of mA and/or kV according to patient size. COMPARISON: None. FINDINGS: Image quality: Excellent. CSF spaces: Basal cisterns are patent. No extra-axial fluid collections. Ventricles are normal in size and shape. Brain: No midline shift. No intracranial masses or hemorrhage. [place]-white matter interface is norm al. Age-related volume loss. Mild small vessel ischemic change, most notably in the bilateral anteri or frontal deep white matter. Extensive intracranial carotid calcifications. Skull and face: Calvarium and visualized facial bones are intact, without suspicious lesions. Sinuses: Visualized sinuses and mastoids are clear. IMPRESSION: 1. No evidence of acute stroke, hemorrhage, or mass. 2. Age-related volume loss and small vessel ischemic change. 3. Intracranial carotid atherosclerosis. A preliminary report with the above findings was provided at the time of the study by [facility]. Reviewed by: Jesus Youssef MD on 01/30/2021 6:38 AM RACHEL Approved by: Jesus Youssef MD on 01/30/2021 6:38 AM RACHEL Station ID: [id number]
--- NOTE | 2021-01-30 08:43 | XRAY Report ---
PROCEDURE: Chest 1 View X-Ray INDICATIONS: chest pain TECHNIQUE: One view of the chest was acquired. COMPARISON: None FINDINGS: Surgical changes and devices: None. Lungs and pleura: No pleural effusions or pneumothorax. Lungs are clear. Mediastinum: Mediastinal contours appear normal. Heart size is normal. Bones and chest wall: No suspicious bony lesions. Overlying soft tissues appear unremarkable. IMPRESSION: No evidence acute pulmonary process. A preliminary report with the above findings was provided at the time of the study by [facility]. Reviewed by: Jesus Youssef MD on 01/30/2021 7:42 AM RACHEL Approved by: Jesus Youssef MD on 01/30/2021 7:42 AM RACHEL Station ID: [id number]
== END 2021-01-30 04:49 | disposition home or self-care (01) ==
LOC: EDUNIT# → SUPCPDRO 01:15 → ED 01:15
DX: E86.0 Dehydration (principal); R41.0 Disorientation, unspecified; T67.5XXA Heat exhaustion, unspecified, initial encounter; I10 Essential (primary) hypertension; E11.9 Type 2 diabetes mellitus without complications
CPT/HCPCS: 36415; 70450; 71045; 80053; 81001; 82550; 83605; 83690; 83735; 83880; 84484; 85025; 93005; 96361; 96374; 99283; 99284; A9270; 81003; 87086

== ENCOUNTER 2021-01-31 17:16 | Outpatient (CLI) | payer MEDICARE, OTHER | END 2021-01-31 17:17 | disposition critical access hospital (66) | LOC: EMS 17:16 | DX: R41.82 Altered mental status, unspecified (principal) | CPT/HCPCS: A0425; A0427 ==

== ENCOUNTER 2021-01-31 17:35 | Emergency (ER) | payer MEDICARE, OTHER ==
[2021-01-31 18:21] LABS: BASOPHILS % (AUTO) 0.6 %; EOSINOPHILS % (AUTO) 0.6 %; HCT - HEMATOCRIT 36.9 % (37.0-47.0); HGB - HEMOGLOBIN 12.3 g/dL (12.0-16.0); LYMPHOCYTES # (AUTO) 1.5 10^3/uL (1.5-3.5); LYMPHOCYTES % (AUTO) 24.1 %; MEAN CORPUSCULAR HEMOGLOBIN 32.1 pg (27.0-31.0); MEAN CORPUSCULAR HGB CONC 33.3 g/dL (32.0-36.0); MEAN CORPUSCULAR VOLUME 96.3 fL (81.0-99.0); MEAN PLATELET VOLUME 10.3 fL (7.9-10.8); MONOCYTES # (AUTO) 0.5 10^3/uL (0.0-1.0); MONOCYTES % (AUTO) 8.3 %; NEUTROPHILS # (AUTO) 4.1 10^3/uL (1.5-6.6); NEUTROPHILS % (AUTO) 66.2 %; PLT - PLATELET COUNT 254 10^3/uL (130-450); RED BLOOD COUNT 3.83 10^6/uL (4.20-5.40); RED CELL DISTRIBUTION WIDTH 13.8 % (12.0-15.0); WHITE BLOOD COUNT 6.2 x10^3/uL (4.8-10.8)
--- NOTE | 2021-01-31 18:26 | XRAY Report ---
PROCEDURE: Chest 1 View X-Ray INDICATIONS: Chest pain TECHNIQUE: One view of the chest was acquired. COMPARISON: 01/30/2021 chest x-ray FINDINGS: Surgical changes and devices: None. Lungs and pleura: No pleural effusions or pneumothorax. Lungs are clear. Mediastinum: Mediastinal contours appear normal. Heart size is normal. Bones and chest wall: No suspicious bony lesions. Overlying soft tissues appear unremarkable. IMPRESSION: No acute process. Reviewed by: Paola Blair MD on 01/31/2021 6:25 PM PDT Approved by: Paola Blair MD on 01/31/2021 6:25 PM PDT Station ID: [id number]
[2021-01-31 18:27] LABS: ALBUMIN 3.7 g/dL (3.2-5.5); ALBUMIN/GLOBULIN RATIO 1.4 (1.0-2.2); BILIRUBIN,TOTAL 0.5 mg/dL (0.2-1.0); CALCIUM 9.1 mg/dL (8.5-10.3); CREATININE 0.9 mg/dL (0.4-1.0); POTASSIUM 3.9 mmol/L (3.5-5.0); TOTAL PROTEIN 6.3 g/dL (6.7-8.2)
[2021-01-31] MEDS ORDERED: SODIUM CHLORIDE 0.9% 1,000 ML IV STA (20:41)
--- NOTE | 2021-01-31 20:43 | ED Physician Documentation ---
PD HPI ALTERED MENTAL STATUS - Stated complaint Stated Complaint: CONFUSION - Chief complaint Chief Complaint: Neuro - History obtained from History obtained from: Patient - Additional information Additional information: 75-year-old woman with diabetes presents with likely heat related illness. She was seen by my partner last night, Dr. Portre. She was confused. There was a concern for strokelike symptoms. It was not felt that her symptoms were consistent with stroke. She did have a head CT done which was negative and a chest x-ray which was normal. She went home, she does not have air co nditioning. She got worse through the day with confusion and feeling too hot. She was not nauseous. On my evaluation she is already been here for some time and is feeling pretty much back to normal although seems slow to answer questions. Review of Systems Ten Systems: 10 systems reviewed and negative Constitutional: reports: Sweats. denies: Fever Ears: reports: Reviewed and negative Nose: reports: Reviewed and negative PD PAST MEDICAL HISTORY - Past Medical History Cardiovascular: Hypertension, High cholesterol Respiratory: Asthma Endocrine/Autoimmune: Type 2 diabetes, HyPOthyroidism Psych: Depression - Present Medications Home Medications: Ambulatory Orders Medication Instructions Recorded Confirmed Felodipine [Felodipine ER] 5 mg PO DAILY 07/30/17 01/31/21 Simvastatin 20 mg PO DAILY 07/30/17 01/31/21 lisinopriL [Lisinopril] 20 mg PO DAILY PM 07/30/17 01/31/21 Calcium Carbonate [Calcium] 600 mg PO DAILY 01/30/21 01/31/21 Ergocalciferol (Vitamin D2) 50 mg PO DAILY 01/30/21 01/31/21 [Vitamin D2] Levothyroxine Sodium [Synthroid] 75 mcg PO DAILY 01/30/21 01/31/21 diphenhydrAMINE [Benadryl] 25 mg PO DAILY 01/30/21 01/31/21 - Allergies Allergies/Adverse Reactions: Allergies Allergy/AdvReac Type Severity Reaction Status Date / Time adhesive tape Allergy Rash Verified 01/30/21 03:57 meperidine [From Demerol] Allergy Unknown Verified 01/30/21 03:57 Penicillins Allergy Unknown Verified 01/30/21 03:57 propoxyphene [From Darvon] Allergy Unknown Verified 01/30/21 03:57 - Social History Does the pt smoke?: No Smoking Status: Former smoker Does the pt drink ETOH?: No Does the pt have substance abuse?: No PD ED PE NORMAL - Vitals Vital signs reviewed: Yes - General General: Other (She is alert and oriented to person and place, she knows the Year but not the month) - HEENT HEENT: PERRL, EOMI - Neck Neck: Supple, no meningeal sign, No bony TTP - Cardiac Cardiac: RRR, No murmur - Respiratory Respiratory: No respiratory distress, Clear bilaterally - Abdomen Abdomen: Normal bowel sounds, Soft, Non tender - Back Back: No CVA TTP, No spinal TTP - Derm Derm: Normal color, Warm and dry - Extremities Extremities: No edema, No calf tenderness / cord - Neuro Neuro: copyman 2-12 intact Eye Opening: Spontaneous Motor: Obeys Commands Verbal: Confused GCS Score: 14 Results - Vitals Vitals: Vital Signs - 24 hr 01/31/21 01/31/21 01/31/21 17:42 18:02 18:35 Temperature 37.4 C Heart Rate 75 74 70 Respiratory 19 17 13 Rate Blood Pressure 141/61 H 128/54 L 152/71 H O2 Saturation 97 96 97 01/31/21 20:00 Temperature 36.4 C L Heart Rate 70 Respiratory 14 Rate Blood Pressure 131/61 H O2 Saturation 98 Oxygen O2 Source Room air Oxygen Flow Rate 2 - EKG (time done) 1806 Rate: Rate (enter#) (70) Rhythm: NSR [place]: Normal Intervals: RBBB Ischemia: Normal ST segments - Labs Labs: Laboratory Tests 01/31/21 01/31/21 01/31/21 18:11 18:11 18:11 WBC 6.2 RBC 3.83 L Hgb 12.3 Hct 36.9 L MCV 96.3 MCH 32.1 H MCHC 33.3 RDW 13.8 Plt Count 254 MPV 10.3 Neut # (Auto) 4.1 Lymph # (Auto) 1.5 [place] # (Auto) 0.5 Eos # (Auto) 0.0 Baso # (Auto) 0.0 Absolute Nucleated RBC 0.00 Nucleated RBC % 0.0 Sodium 136 Potassium 3.9 Chloride 100 L Carbon Dioxide 25 Anion Gap 11.0 BUN 31 H Creatinine 0.9 Estimated GFR (MDRD) 61 L Glucose 106 H Calcium 9.1 Total Bilirubin 0.5 AST 20 ALT 27 Alkaline Phosphatase 62 Total Creatine Kinase 109 Troponin I High Sens 6.4 Total Protein 6.3 L Albumin 3.7 Globulin 2.6 Albumin/Globulin Ratio 1.4 Lipase 42 Urine Color Urine Clarity Urine pH Ur Specific [place] Urine Protein Urine Glucose (UA) Urine Ketones Urine Occult Blood Urine Nitrite Urine Bilirubin Urine Urobilinogen Ur Leukocyte Esterase Urine RBC Urine WBC Ur Squamous Epith Cells Urine Bacteria Ur Microscopic Review Urine Culture Comments 01/31/21 20:46 WBC RBC Hgb Hct MCV MCH MCHC RDW Plt Count MPV Neut # (Auto) Lymph # (Auto) [place] # (Auto) Eos # (Auto) Baso # (Auto) Absolute Nucleated RBC Nucleated RBC % Sodium Potassium Chloride Carbon Dioxide Anion Gap BUN Creatinine Estimated GFR (MDRD) Glucose Calcium Total Bilirubin AST ALT Alkaline Phosphatase Total Creatine Kinase Troponin I High Sens Total Protein Albumin Globulin Albumin/Globulin Ratio Lipase Urine Color YELLOW Urine Clarity CLEAR Urine pH 5.5 Ur Specific [place] 1.020 Urine Protein NEGATIVE Urine Glucose (UA) NEGATIVE Urine Ketones NEGATIVE Urine Occult Blood NEGATIVE Urine Nitrite NEGATIVE Urine Bilirubin NEGATIVE Urine Urobilinogen 0.2 (NORMAL) Ur Leukocyte Esterase SMALL H Urine RBC 0-5 Urine WBC 6-10 H Ur Squamous Epith Cells FEW Squamous Urine Bacteria Few Ur Microscopic Review INDICATED Urine Culture Comments INDICATED PD MEDICAL DECISION MAKING - ED course ED course: 75-year-old woman with continued mild confusion related to heat related illness. Does have some evidence of pyuria today, that said without specific urinary complaints probably would not treat given the subtlety of the findings on urinalysis. Globe better after IV fluids here. Passed a road test. I tried to call her son and a left message was left but no return call. Departure - Departure Disposition: 01 Home, Self Care Clinical Impression: Heat exhaustion Qualifiers: Encounter type: initial encounter Qualified Code(s): T67.5XXA - Heat exhaustion, unspecified, initial encounter Condition: Good Record reviewed to determine appropriate education?: Yes Instructions: ED Exhaustion Heat Comments: Call your doctor to arrange a follow-up appointment, make the next available appointment. In the interim, return anytime if worse or if new symptoms develop.
[2021-01-31 20:55] LABS: BILIRUBIN,URINE NEGATIVE (NEGATIVE); GLUCOSE, URINE (UA) NEGATIVE (NEGATIVE); KETONES,URINE (UA) NEGATIVE (NEGATIVE); LEUKOCYTE ESTERASE, URINE SMALL (NEGATIVE); NITRITE,URINE NEGATIVE (NEGATIVE); OCCULT BLOOD,URINE NEGATIVE (NEGATIVE); PH,URINE 5.5 PH (5.0-7.5); PROTEIN,URINE NEGATIVE (NEGATIVE); UROBILINOGEN,URINE 0.2 (NORMAL) E.U./dL (NORMAL)
[2021-01-31 21:02] LABS: CLARITY,URINE CLEAR (CLEAR)
[2021-01-31 21:06] LABS: BACTERIA,URINE Few /HPF (None Seen); RBC,URINE 0-5 /HPF (0-5); SQUAMOUS EPITHELIAL CELL,UR FEW Squamous (<= Few)
[2021-01-31 23:13] VITALS: BP 153/64
== END 2021-01-31 23:41 | disposition home or self-care (01) ==
LOC: EDUNIT# → ED 17:35
DX: T67.5XXA Heat exhaustion, unspecified, initial encounter (principal); R82.81 Pyuria; I10 Essential (primary) hypertension; E11.9 Type 2 diabetes mellitus without complications; Z87.891 Personal history of nicotine dependence
CPT/HCPCS: 36415; 80053; 81001; 81003; 82550; 83690; 84484; 85025; 87086; 93005; 99284

== ENCOUNTER 2021-06-21 12:32 | Outpatient (CLI) | payer MEDICARE, OTHER | END 2021-06-21 12:33 | disposition critical access hospital (66) | LOC: EMS 12:32 | DX: Z04.3 Encounter for examination and observation following other accident (principal) | CPT/HCPCS: A0425; A0429 ==

== ENCOUNTER 2021-06-21 12:45 | Inpatient (IN) | payer MEDICARE, OTHER ==
[2021-06-21] MEDS ORDERED: SODIUM CHLORIDE 0.9% 1,000 ML IV STA (12:59)
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
--- NOTE | 2021-06-21 13:35 | XRAY Report ---
PROCEDURE: Chest 1 View X-Ray INDICATIONS: hypothermic TECHNIQUE: One view of the chest was acquired. COMPARISON: Chest radiograph dated 01/23/2021 and left shoulder radiograph dated 04/11/2018 FINDINGS: Surgical changes and devices: None. Lungs and pleura: No pleural effusions or pneumothorax. Stable appearance of 4 mm peripheral right left mid lung zone pulmonary nodule. Lungs are otherwise clear. Mediastinum: Mediastinal contours appear normal. Heart size is normal. Bones and chest wall: No suspicious bony lesions. Overlying soft tissues appear unremarkable. IMPRESSION: Stable examination of the chest without acute cardiopulmonary abnormalities. Reviewed by: Roland Murphy MD on 06/21/2021 1:34 PM PST Approved by: Roland Murphy MD on 06/21/2021 1:34 PM PST Station ID: [id number]
[2021-06-21 14:05] LABS: BASOPHILS % (AUTO) 0.6 %; EOSINOPHILS % (AUTO) 0.1 %; HGB - HEMOGLOBIN 16.7 g/dL (12.0-16.0); LYMPHOCYTES % (AUTO) 1.3 %; MEAN CORPUSCULAR HGB CONC 33.4 g/dL (32.0-36.0); MEAN CORPUSCULAR VOLUME 95.8 fL (81.0-99.0); MEAN PLATELET VOLUME 11.6 fL (7.9-10.8); MONOCYTES % (AUTO) 3.6 %; PLT - PLATELET COUNT 170 10^3/uL (130-450); RED BLOOD COUNT 5.22 10^6/uL (4.20-5.40); RED CELL DISTRIBUTION WIDTH 13.7 % (12.0-15.0); WHITE BLOOD COUNT 21.8 x10^3/uL (4.8-10.8)
[2021-06-21 14:07] LABS: VBG BASE EXCESS -3.8 mmol/L (-2 - +2); VBG HCO3 24.9 mmol/L (23-28); VBG PCO2 58.9 mmHg (41-51); VBG PH 7.244 (7.31-7.41); VBG PO2 31.9 mmHg (25-47); VBG TOTAL CO2 26.7 mmol/L (24-29)
[2021-06-21 14:08] LABS: VBG OXYGEN SATURATION 56.6 % (60-80)
[2021-06-21 14:10] LABS: ABNORMAL LYMPHS % (MANUAL) 0 %
[2021-06-21] MEDS ORDERED: VANCOMYCIN INJ 2 GM in SODIUM CHLORIDE 0.9% 500 ML IV STA (14:13)
[2021-06-21] MEDS ORDERED: metroNIDAZOLE 500 MG/100 ML 500 MG/100 ML BAG IV ONE (14:13)
[2021-06-21] MEDS ORDERED: AZTREONAM 2 GM in SODIUM CHLORIDE 0.9% MINIBAG 100 ML IV STA (14:13)
[2021-06-21 14:21] LABS: ALBUMIN 4.1 g/dL (3.2-5.5); ALBUMIN/GLOBULIN RATIO 1.2 (1.0-2.2); ALKALINE PHOSPHATASE 133 IU/L (42-121); ALT ALANINE AMINOTRANSFERASE 89 IU/L (10-60); AST ASPARTATE AMINOTRANSFERASE 133 IU/L (10-42); BILIRUBIN,TOTAL 0.9 mg/dL (0.2-1.0); BUN - BLOOD UREA NITROGEN 68 mg/dL (6-20); CALCIUM 10.4 mg/dL (8.5-10.3); CARBON DIOXIDE - CO2 23 mmol/L (21-32); CHLORIDE 102 mmol/L (101-111); CREATININE 1.4 mg/dL (0.4-1.0); ETOH - ETHANOL < 5.0 mg/dL; GFR - MDRD 36 (>89); GLUCOSE 214 mg/dL (70-100); LACTIC ACID, VENOUS 2.8 mmol/L (0.5-2.2); POTASSIUM 3.9 mmol/L (3.5-5.0); SODIUM 140 mmol/L (135-145); TOTAL PROTEIN 7.6 g/dL (6.7-8.2)
[2021-06-21] MEDS ORDERED: IOVERSOL 320 100 ML VIAL IVP ONE ×2 (14:22→21:29)
[2021-06-21 14:36] LABS: BAND NEUTROPHILS % (MANUAL) 8 %; LYMPHOCYTES # (MANUAL) 0.2 10^3/uL (1.5-3.5); LYMPHOCYTES % (MANUAL) 1 %; MONOCYTES # (MANUAL) 1.5 10^3/uL (0.0-1.0); NEUTROPHILS # (MANUAL) 20.1 10^3/uL (1.5-6.6)
[2021-06-21 14:37] LABS: DIFFERENTIAL COMMENT MANUAL DIFFERENTIAL; PLATELET ESTIMATE, MANUAL NORMAL (130-450,000) (NORMAL); PLATELET MORPHOLOGY NORMAL APPEARANCE (NORMAL); RBC MORPHOLOGY (MULTIPLE) NORMAL APPEARANCE (NORMAL); WBC MORPHOLOGY (MULTIPLE) 1+ TOXIC GRANULATION (NORMAL)
[2021-06-21 14:42] LABS: BILIRUBIN,URINE MODERATE (NEGATIVE); GLUCOSE, URINE (UA) NEGATIVE (NEGATIVE); KETONES,URINE (UA) 15 mg/dL (NEGATIVE); LEUKOCYTE ESTERASE, URINE TRACE (NEGATIVE); NITRITE,URINE POSITIVE (NEGATIVE); OCCULT BLOOD,URINE LARGE (NEGATIVE); PROTEIN,URINE 30 mg/dL (NEGATIVE); UROBILINOGEN,URINE 1 (NORMAL) E.U./dL (NORMAL)
--- NOTE | 2021-06-21 15:41 | CT Report ---
PROCEDURE: CT brain without contrast INDICATIONS: Altered mental status TECHNIQUE: Noncontrast 4.5 mm thick angled axial sections acquired from the foramen magnum to the ve rtex. For radiation dose reduction, the following was used: automated exposure control, adjustment of mA and/or kV according to patient size. COMPARISON: 01/30/2021 FINDINGS: Image quality: Excellent. CSF spaces: Basal cisterns are patent. No extra-axial fluid collections. Ventricles are normal in size and shape. Brain: No midline shift. No intracranial masses or hemorrhage. [place]-white matter interface is norm al. Moderate atrophy and multifocal white matter chronic ischemic change noted. Atherosclerotic vascu lar calcification noted in the cavernous segments of both internal carotid arteries as well as the in tradural vertebral arteries. Skull and face: Calvarium and visualized facial bones are intact, without suspicious lesions. Bilat eral intraocular lens replacements noted. Sinuses: Visualized sinuses and mastoids are clear other than a small air-fluid level noted in the l eft maxillary sinus. IMPRESSION: 1. Atrophy and chronic ischemic change without acute hemorrhage or mass effect 2. Small air-fluid level noted in the left maxillary sinus Reviewed by: Ralph Figueroa MD on 06/21/2021 2:27 PM AKST Approved by: Ralph Figueroa MD on 06/21/2021 2:27 PM AKST Station ID: [id number]
--- NOTE | 2021-06-21 15:42 | CT Report ---
PROCEDURE: Abdomen/Pelvis W INDICATIONS: 76-year-old female with sepsis of unknown origin CONTRAST: IV CONTRAST: Optiray 320 ml: 100 PO CONTRAST: *NO PO CONTRAST TECHNIQUE: After the administration of IV and oral contrast, 5 mm thick sections acquired from the diaphragms to the symphysis. 5 mm thick coronal and sagittal reformats were acquired. For radiation dose reducti on, the following was used: automated exposure control, adjustment of mA and/or kV according to breezy ent size. COMPARISON: None. FINDINGS: Image quality: Excellent. ABDOMEN: Lower thorax: The lung bases are clear. Heart size normal. No hiatal hernia. Dense mitral valve maty ular calcification noted. Liver: There is diffusely decreased in attenuation. No focal mass lesion. Biliary system: Cholecystectomy. No biliary ductal dilatation. Pancreas: Unremarkable without mass or inflammation evident. Spleen: Wedge-shaped hypodensity in the spleen measures 1.7 cm Adrenals: Normal morphology and density. Reproductive system: Unremarkable as visualized. Urinary system: Normal renal size and attenuation. No renal calculi, hydronephrosis, or solid mass p resent. Padron catheter in the bladder. Gastrointestinal system: There is diffuse bowel wall thickening and edema with pericolonic inflammato ry change noted involving the descending and sigmoid colon. The right colon shows a fluid distention and mucosal enhancement, all consistent with left-sided colitis. No obstruction present. No evidence of abscess. No bowel wall pneumatosis. Appendix: No findings to suggest acute appendicitis. Peritoneal spaces: No mesenteric or retroperitoneal adenopathy. No free air. Small amount of free f luid present in the left pericolic gutter. No free fluid in pelvis. Vasculature: The IVC, aorta and iliac vasculature are unremarkable. Musculoskeletal: Normal bone mineralization. No acute fractures. Abdominal wall intact without regina dence of ventral or inguinal hernias. Lower lumbar spine discectomy and fusion with instrumentation n oted. Disc space narrowing and anterior aspect present at the thoracolumbar junction. Grade 1 L4-5 sp inal listhesis. IMPRESSION: 1. Left-sided colitis. There is left colon and sigmoid wall thickening with pericolonic inflammatory change noted without evidence of abscess or bowel pneumatosis. No obstruction. 2. Splenic wedge-shaped hypodensity may reflect cyst or old infarct. 3. Hepatic fatty infiltration, cholecystectomy, lumbar spine instrumentation. Reviewed by: Ralph Figueroa MD on 06/21/2021 2:40 PM AKST Approved by: Ralph Figueroa MD on 06/21/2021 2:40 PM AKST Station ID: [id number]
[2021-06-21 15:53] LABS: CLARITY,URINE CLOUDY (CLEAR)
[2021-06-21 15:54] LABS: BACTERIA,URINE Moderate /HPF (None Seen); CASTS, URINE 0-2 Granular Casts /LPF; MUCUS,URINE Few Strands; SQUAMOUS EPITHELIAL CELL,UR MOD Squamous (<= Few)
[2021-06-21] MEDS ORDERED: ONDANSETRON 4 MG/2 ML VIAL IVP PRN (16:03)
[2021-06-21 16:04] LABS: B. PARAPERTUSSIS- RESP PCR PAN NOT DETECTED; B. PERTUSSIS- RESP PCR PANEL NOT DETECTED; C. PNEUMONIAE- RESP PCR PANEL NOT DETECTED; CORONAVIRUS 229E-RESP PCR NOT DETECTED; CORONAVIRUS HKU1-RESP PCR NOT DETECTED; CORONAVIRUS NL63-RESP PCR NOT DETECTED; CORONAVIRUS OC43-RESP PCR NOT DETECTED; HUMAN METAPNEUMOVIRUS NOT DETECTED; INFLUENZA A- RESP PCR PANEL NOT DETECTED; INFLUENZA B - RESP PCR PANEL NOT DETECTED; M. PNEUMONIAE- RESP PCR PANEL NOT DETECTED; PARAINFLUENZA VIRUS 1 NOT DETECTED; PARAINFLUENZA VIRUS 2 NOT DETECTED; PARAINFLUENZA VIRUS 3 NOT DETECTED; PARAINFLUENZA VIRUS 4 NOT DETECTED; RHINOVIRUS/ENTEROVIRUS NOT DETECTED; RSV- RESP PCR PANEL NOT DETECTED; SARS-CoV-2 -RESP PCR PANEL NOT DETECTED
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
[2021-06-21] MEDS ORDERED: SODIUM CHLORIDE 0.9% 1,000 ML IV SCH (17:00)
--- NOTE | 2021-06-21 17:35 | PHARMACY PROGRESS NOTE ---
- Best Possible Medication History Admit Date and Time: 06/21/21 6172 Processed by: Pharmacy Medication History completed: Yes Secondary Source(s): Physician records, Pharmacy records, Insurance records, Previous admit records As the person ultimately responsible for medication therapy, providers are able to order a medication from an existing home medication list in [facility] via the "Reconcile Routine" prior to Confirmation of that medication by client technical support associate. Such practice is discouraged except when the physician, in their clinical judgment, deems that a medical need exists for a medication without regard to previous use.
[2021-06-21] MEDS: SODIUM CHLORIDE FLUSH 0.9% 10 ML SYRINGE IVP SCH (18:00)
--- NOTE | 2021-06-21 18:14 | PHARMACY PROGRESS NOTE ---
- Therapy Status Therapy status: Awaiting steady state Basis for treatment: Empirical Treatment indication: Sepsis Trough goal: 15-20 Concurrent antibiotics: Ciprofloxacin 400 mg IV q12h Metronidazole 500 mg IV q8h - YANETH Risk Risk level for Acute Kidney Injury: High Acute Kidney Injury risk factors: Baseline CrCl <50, Baseline BUN:SCr >20:1, Goal trough >15, Chronic baseline hypertension, Diabetes, Admission to ICU, Sepsis - Monitoring and Recommendation Clinical response to treatment: I&O Previous 24 hours 06/19/21 06/20/21 06/21/21 23:59 23:59 23:59 Intake Total 1554.167 Output Total 250 Balance 1304.167 Lab Results 06/21/21 13:55 BUN 68 H Creatinine 1.4 H Estimated GFR (MDRD) 36 L Monitoring plan: Daily serum creatinine, Suggest ongoing fluid replacement Areas for additional monitoring: IV to PO when appropriate, Therapy de- escalation based on culture results, Acute Kidney Injury Pharmacy recommendation: Continue current regime (Patient received loading dose of 2 gm in the emergency room on 06/21 @ 1600. Will initiate maintenance dose of 1.25 gm IV q24h starting 06/22 @ 1600 for estimated trough ~17)
[2021-06-21] MEDS ORDERED: SODIUM CHLORIDE 0.9% 1,000 ML IV ONE (19:09)
[2021-06-21] MEDS ORDERED: INSULIN GLARGINE 300 UNIT/3 ML PEN SUBQ SCH (21:00)
[2021-06-21] MEDS ORDERED: INSULIN ASPART 300 UNIT/3 ML PEN SUBQ SCH (21:00)
[2021-06-21] MEDS ORDERED: ATORVASTATIN 40 MG TABLET PO SCH (21:00)
--- NOTE | 2021-06-21 21:43 | ANESTHESIA PROCEDURE NOTE ---
Anesth Central Line Template - Central Line Central Line Preparation: Consent Obtained (verbal with MD), Time out completed, Ultrasound used, Sterile prep and drape Central line location: Right IJ Central line type: Triple lumen Central line catheter tip site resides: Superior vena cava (SVC) Central line aftercare: Chlorhexidine disc placed, Secured, Placement confirmed, No pneumothorax, No complications, Bundle checklist complete, Pt tolerated well, Other Other Info/Details: Triple lumen 20cm CVL placed @SCJ. Sutured at 16 after capsx3 easily aspirate and flush. Secured with suture x2 and tegaderm.
[2021-06-21] MEDS: HEPARIN 5,000 UNIT/ML VIAL SUBQ SCH (21:49)
[2021-06-21] MEDS: SODIUM CHLORIDE FLUSH 0.9% 10 ML SYRINGE IVP PRN ×2 (21:58→21:59)
--- NOTE | 2021-06-21 22:05 | XRAY Report ---
PROCEDURE: Chest for Line Placement INDICATIONS: new CVL@R IJ TECHNIQUE: One view of the chest was acquired. COMPARISON: None. FINDINGS: Surgical changes and devices: Right IJ central venous catheter with the tip projecting in the mid SVC .. Lungs and pleura: No pleural effusions or pneumothorax. Lungs are clear. The left costophrenic angl es not included on the study. Mediastinum: Mediastinal contours appear normal. Heart size is normal. Bones and chest wall: No suspicious bony lesions. Overlying soft tissues appear unremarkable. IMPRESSION: Status post placement of right IJ central venous catheter with the tip projecting in the mid SVC. No pneumothorax Reviewed by: Ricardo Corbett MD on 06/21/2021 10:04 PM PST Approved by: Ricardo Corbett MD on 06/21/2021 10:04 PM PST Station ID: [id number]
[2021-06-21] MEDS: CIPROFLOXACIN 400 MG/200 ML 400 MG/200 ML BAG IV SCH (22:19)
[2021-06-21] MEDS: SODIUM CHLORIDE 0.9% 500 ML IV PRN (23:13)
[2021-06-21] MEDS: metroNIDAZOLE 500 MG/100 ML 500 MG/100 ML BAG IV SCH (23:25)
[2021-06-22] MEDS: SODIUM CHLORIDE FLUSH 0.9% 10 ML SYRINGE IVP SCH ×4 (00:32→22:13)
[2021-06-22] MEDS: SODIUM CHLORIDE 0.9% 1,000 ML IV SCH ×4 (03:36→19:59)
[2021-06-22 04:51] LABS: CALCIUM, IONIZED 1.16 mmol/L (1.15-1.33); VBG PH 7.351 (7.31-7.41)
[2021-06-22 04:55] LABS: BASOPHILS # (AUTO) 0.1 10^3/uL (0.0-0.1); BASOPHILS % (AUTO) 0.7 %; EOSINOPHILS # (AUTO) 0.6 10^3/uL (0.0-0.7); EOSINOPHILS % (AUTO) 3.4 %; HCT - HEMATOCRIT 38.4 % (37.0-47.0); HGB - HEMOGLOBIN 13.2 g/dL (12.0-16.0); LYMPHOCYTES # (AUTO) 0.4 10^3/uL (1.5-3.5); LYMPHOCYTES % (AUTO) 2.1 %; MEAN CORPUSCULAR HEMOGLOBIN 32.2 pg (27.0-31.0); MEAN CORPUSCULAR HGB CONC 34.4 g/dL (32.0-36.0); MEAN CORPUSCULAR VOLUME 93.7 fL (81.0-99.0); MEAN PLATELET VOLUME 12.1 fL (7.9-10.8); MONOCYTES % (AUTO) 5.5 %; NEUTROPHILS # (AUTO) 15.6 10^3/uL (1.5-6.6); PLT - PLATELET COUNT 176 10^3/uL (130-450); RED CELL DISTRIBUTION WIDTH 13.7 % (12.0-15.0); WHITE BLOOD COUNT 17.7 x10^3/uL (4.8-10.8)
[2021-06-22 05:04] LABS: CALCIUM 8.5 mg/dL (8.5-10.3); CREATININE 1.2 mg/dL (0.4-1.0); MAGNESIUM 1.9 mg/dL (1.7-2.8); PHOSPHORUS 3.7 mg/dL (2.5-4.6); POTASSIUM 3.7 mmol/L (3.5-5.0)
[2021-06-22] MEDS ORDERED: POTASSIUM CHLOR 20 MEQ/100 ML 20 MEQ/100 ML BAG IV ONE (05:30)
[2021-06-22] MEDS: metroNIDAZOLE 500 MG/100 ML 500 MG/100 ML BAG IV SCH ×3 (06:27→22:09)
[2021-06-22] MEDS: LEVOTHYROXINE 112 MCG TABLET PO SCH (06:29)
[2021-06-22] MEDS: PANTOPRAZOLE 40 MG TABLET PO SCH (06:29)
--- NOTE | 2021-06-22 07:49 | PROVIDER PROGRESS NOTE ---
Assessment/Plan - Problem List (1) Septic shock Assessment/Plan: Improved Secondary to colitis. Suspect bacterial WBC improved from 21.8 to 17.7 Lactic acid 1.0 Blood cultures are NGTD X1 Continue vancomycin, Flagyl and Cipro. Continue IV fluids with NS at 150ml/hr On Levophed (2) Acute kidney injury Assessment/Plan: Likely prerenal. Related to diarrhea. Slight improvement Creatinine was 1.2. Estimated GFR 44. Patient currently on normal saline at 150 mL/h. Anticipating continued improvement in renal function. Will monitor labs daily. (3) Colitis Assessment/Plan: Suspect bacterial cause. Etiology undetermined. Stool and blood cultures ordered. C. difficile test was negative. Patient is on Cipro, Flagyl and vancomycin. (4) Hypothermia Assessment/Plan: Resolved Temperature 37.7 degree Celsius after patient was warmed (5) Hypothyroidism Assessment/Plan: Synthroid 50 mcg p.o. daily. TSH 1.53 (6) Diabetes mellitus Assessment/Plan: Patient's glimepiride and Victoza held. Lantus 5 units every afternoon and sliding scale insulin. Hemoglobin A1c 6.1. (7) Hyperlipidemia Assessment/Plan: Atorvastatin 20mg po qpm Patient is on Simvastatin 20mg po qpm at home (8) GERD (gastroesophageal reflux disease) Assessment/Plan: 40 mg p.o. Daily AC - Current Meds Current Meds: Current Medications Generic Name Dose Route Start Last Admin Trade Name Freq PRN Reason Stop Dose Admin Atorvastatin Calcium 20 mg 06/21/21 21:00 06/21/21 21:46 Atorvastatin 40 Mg Tablet PO 20 mg QPM BARBY Administration Heparin Sodium (Porcine) 5,000 unit 06/21/21 21:00 06/21/21 21:49 Heparin 5,000 Unit/Ml Vial SUBQ 5,000 unit BID BARBY Administration Ciprofloxacin 400 mg in 200 mls @ 200 mls/hr 06/21/21 23:00 06/21/21 23:28 Cipro 400 Mg/200 Ml IV Infused Q12H BARBY Infusion Metronidazole 500 mg in 100 mls @ 100 mls/hr 06/21/21 23:00 06/22/21 06:27 Flagyl 500 Mg/100 Ml IV 100 mls/hr Q8H BARBY Administration Norepinephrine Bitartrate 8 mg 250 mls @ 15 mls/hr 06/21/21 20:00 06/21/21 20:46 / Dextrose IV 8 mcg/min .[id number] BARBY 15 mls/hr Administration Protocol 8 MCG/MIN Sodium Chloride 1,000 mls @ 150 mls/hr 06/21/21 19:27 06/22/21 03:41 Normal Saline 0.9% IV Not Given .[id number] BARBY Sodium Chloride 500 mls @ 20 mls/hr 06/21/21 22:14 06/21/21 23:13 Normal Saline 0.9% IV 20 mls/hr Q24H PRN Administration TKO RATE Levothyroxine Sodium 112 mcg 06/22/21 07:00 06/22/21 06:29 Levothyroxine 112 Mcg Tablet PO 112 mcg QDAC BARBY Administration Pantoprazole Sodium 40 mg 06/22/21 07:00 06/22/21 06:29 Pantoprazole 40 Mg Tablet PO 40 mg QDAC BARBY Administration Sodium Chloride 10 ml 06/21/21 17:00 06/22/21 00:32 Sodium Chloride Flush 0.9% 10 Ml Syringe IVP Not Given 0100,0900,1700 BARBY Sodium Chloride 10 ml 06/21/21 16:03 06/21/21 21:59 Sodium Chloride Flush 0.9% 10 Ml Syringe IVP 10 ml PRN PRN Administration NEEDED PER PROVIDER ORDERS - Lab Result Fish Bone Diagrams: 06/22/21 04:35 06/22/21 08:20 - Additional Planning My Orders: My Active Orders 06/21/21 16:03 Activity Orders [RC] Q2HR Daily Weight [RC] 0600 IO [RC] Q1HR Initiate Bowel Care Protocol [RC] QSHIFT Initiate Flu Vaccine Screening [RC] ONCE Initiate ICU Electrolyte Prot. [RC] .protocol Initiate Line Care Protocol [RC] .protocol Initiate Personal Care Protoco [RC] .protocol Initiate Pneumonia Vaccine Scr [RC] ONCE Acetaminophen [Tylenol] 650 mg PO Q4HR PRN Ondansetron Inj [Zofran Inj] 4 mg IVP Q6HR PRN Sodium Chloride Flush 0.9% [Normal Saline Flush 0.9%] 10 ml IVP PRN PRN Code Status [OTHERS] Routine Condition of Patient [OTHERS] Routine DVT Prophylaxis [OTHERS] Routine 06/21/21 16:06 SCDs [RC] QSHIFT 06/21/21 16:08 Telemetry- [RC] Q4HR 06/21/21 Dinner Regular Diet [DIET] 06/21/21 17:00 Sodium Chloride Flush 0.9% [Normal Saline Flush 0.9%] 10 ml IVP 0100,0900,1700 06/21/21 19:27 Sodium Chloride 0.9% [Normal Saline 0.9%] 1,000 ml IV 150 mls/hr 06/21/21 19:38 Blood Glucose Checks - Eating [RC] 0800,1200,1700,2100 Initiate Hypoglycemia Protocol [RC] .protocol 06/21/21 20:00 Dextrose 5% [D5w] 242 ml NORepinephrine [Levophed] 8 mg IV 8 mcg/min 06/21/21 21:00 Atorvastatin [Lipitor] 20 mg PO QPM Heparin [Heparin Sodium (Porcine)] 5,000 unit SUBQ BID 06/21/21 23:00 Ciprofloxacin 400 mg/200 ml [Cipro 400 mg/200 ml] 400 mg in 200 ml IV Q12H metroNIDAZOLE 500 MG/100 ML [Flagyl 500 mg/100 ml] 500 mg in 100 ml IV Q8H 06/22/21 04:35 HEMOGLOBIN A1c% [CHEM] DAILYLAB 06/22/21 05:49 CUL, STOOL [CULTURE, STOOL] [RM] Routine Min Oil/Dimeth/Coconut Oil Crm [Cavilon] 1 applic TOP PRN PRN 06/22/21 07:00 Levothyroxine [Synthroid] 112 mcg PO QDAC Pantoprazole [Protonix] 40 mg PO QDAC 06/22/21 07:48 LIVER PANEL [CHEM] Routine 06/22/21 16:00 Vancomycin Inj [Vancomycin] 1 gm Vancomycin Inj [Vancomycin Hcl] 250 mg Sodium Chloride 0.9% [Normal Saline 0.9%] 250 ml IV Q24H 06/23/21 05:00 BMP - BASIC METABOLIC PANEL [CHEM] DAILYLAB CALCIUM, IONIZED ([facility]) [BG] DAILYLAB CBC - COMP BLD CT W/AUTO DIFF [HEME] DAILYLAB LIVER PANEL [CHEM] DAILYLAB MAGNESIUM [CHEM] DAILYLAB PHOSPHORUS [CHEM] DAILYLAB 06/24/21 05:00 BMP - BASIC METABOLIC PANEL [CHEM] DAILYLAB CALCIUM, IONIZED ([facility]) [BG] DAILYLAB CBC - COMP BLD CT W/AUTO DIFF [HEME] DAILYLAB MAGNESIUM [CHEM] DAILYLAB PHOSPHORUS [CHEM] DAILYLAB 06/25/21 05:00 BMP - BASIC METABOLIC PANEL [CHEM] DAILYLAB CBC - COMP BLD CT W/AUTO DIFF [HEME] DAILYLAB 06/26/21 05:00 BMP - BASIC METABOLIC PANEL [CHEM] DAILYLAB CBC - COMP BLD CT W/AUTO DIFF [HEME] DAILYLAB 06/27/21 05:00 BMP - BASIC METABOLIC PANEL [CHEM] DAILYLAB CBC - COMP BLD CT W/AUTO DIFF [HEME] DAILYLAB 06/28/21 05:00 BMP - BASIC METABOLIC PANEL [CHEM] DAILYLAB CBC - COMP BLD CT W/AUTO DIFF [HEME] DAILYLAB Subjective - Subjective Patient Reports: Other (Patient awake but oriented to self only. Very lethargic. Not able to reliably exam questions.) Objective Vital Signs: Vital Signs - 24 hr 06/21/21 06/21/21 06/21/21 12:50 13:14 13:38 Temperature 32.7 C L Heart Rate 58 L 57 L 60 Heart Rate [ Monitoring electrodes] Respiratory 9 L 12 12 Rate Blood Pressure 123/54 L 100/74 Blood Pressure [Left Brachial artery] O2 Saturation 99 97 100 06/21/21 06/21/21 06/21/21 14:08 14:30 15:30 Temperature 32.2 C L 32.8 C L 33.2 C L Heart Rate 57 L 60 60 Heart Rate [ Monitoring electrodes] Respiratory 10 L 14 13 Rate Blood Pressure 111/79 80/60 L 101/58 L Blood Pressure [Left Brachial artery] O2 Saturation 100 99 100 06/21/21 06/21/21 06/21/21 16:00 16:30 17:51 Temperature 33.3 C L 33.7 C L 34.4 C L Heart Rate 58 L 68 Heart Rate [ 69 Monitoring electrodes] Respiratory 13 14 Rate Blood Pressure 104/63 120/90 H Blood Pressure [Left Brachial artery] O2 Saturation 100 100 06/21/21 06/21/21 06/21/21 18:27 19:00 20:00 Temperature 34.7 C L 35.2 C L 35.4 C L Heart Rate Heart Rate [ 63 69 69 Monitoring electrodes] Respiratory 12 14 12 Rate Blood Pressure Blood Pressure 97/65 89/51 L 73/37 L [Left Brachial artery] O2 Saturation 98 98 97 1106/21/21 06/21/21 21:00 22:00 23:00 Temperature 35.8 C L 37.0 C Heart Rate Heart Rate [ 89 92 111 H Monitoring electrodes] Respiratory 13 12 18 Rate Blood Pressure Blood Pressure 136/59 H 101/58 L 97/52 L [Left Brachial artery] O2 Saturation 95 96 96 06/21/21 06/22/21 06/22/21 23:53 01:00 02:00 Temperature 37.4 C 37.7 C Heart Rate Heart Rate [ 119 H 125 H 108 H Monitoring electrodes] Respiratory 21 24 21 Rate Blood Pressure Blood Pressure 97/52 L 126/67 95/46 L [Left Brachial artery] O2 Saturation 96 96 93 06/22/21 06/22/21 06/22/21 03:00 04:00 05:00 Temperature 37.6 C 37.6 C 37.6 C Heart Rate Heart Rate [ 99 105 H 107 H Monitoring electrodes] Respiratory 18 24 22 Rate Blood Pressure Blood Pressure 104/44 L 113/47 L 119/49 L [Left Brachial artery] O2 Saturation 94 96 95 06/22/21 06/22/21 06:00 07:00 Temperature 37.5 C 37.5 C Heart Rate Heart Rate [ 86 85 Monitoring electrodes] Respiratory 12 14 Rate Blood Pressure Blood Pressure 114/49 L 113/52 L [Left Brachial artery] O2 Saturation 96 96 Oxygen O2 Source Room air I&O (Last 24 Hrs): Intake and Output Totals x24h 06/20/21 06/21/21 06/22/21 23:59 23:59 23:59 Intake Total 2900.000 1100 Output Total 455 333 Balance 2445.000 767 General: Other (Awake. Oriented to self only. Lethargic) HEENT: PERRLA, EOMI Neck: Supple, No JVD Neuro: Non Focal, Other (Lethargic) Cardiovascular: Regular rate, No murmurs Respiratory: Chest non-tender, No respiratory distress, Breath sounds nml Abdomen: Normal bowel sounds, Soft, No tenderness, No masses Extremities: No clubbing, No edema, No tenderness/swelling Skin: No rashes, No breakdown, No significant lesion - Results Results: Laboratory Results WBC 17.7 x10^3/uL (4.8-10.8) H 06/22/21 04:35 RBC 4.10 10^6/uL (4.20-5.40) L 06/22/21 04:35 Hgb 13.2 g/dL (12.0-16.0) 06/22/21 04:35 Hct 38.4 % (37.0-47.0) 06/22/21 04:35 MCV 93.7 fL (81.0-99.0) 06/22/21 04:35 MCH 32.2 pg (27.0-31.0) H 06/22/21 04:35 MCHC 34.4 g/dL (32.0-36.0) 06/22/21 04:35 RDW 13.7 % (12.0-15.0) 06/22/21 04:35 Plt Count 176 10^3/uL (130-450) 06/22/21 04:35 MPV 12.1 fL (7.9-10.8) H 06/22/21 04:35 Neut # (Auto) 15.6 10^3/uL (1.5-6.6) H 06/22/21 04:35 Lymph # (Auto) 0.4 10^3/uL (1.5-3.5) L 06/22/21 04:35 Butts # (Auto) 1.0 10^3/uL (0.0-1.0) 06/22/21 04:35 Eos # (Auto) 0.6 10^3/uL (0.0-0.7) 06/22/21 04:35 Baso # (Auto) 0.1 10^3/uL (0.0-0.1) 06/22/21 04:35 Absolute Nucleated RBC 0.00 x10^3/uL 06/22/21 04:35 Total Counted 100 06/21/21 13:55 Band Neuts % (Manual) 8 % (0-10) 06/21/21 13:55 Abnorm Lymph % (Manual) 0 % 06/21/21 13:55 Nucleated RBC % 0.0 /100WBC 06/22/21 04:35 Neutrophils # (Manual) 20.1 10^3/uL (1.5-6.6) H 06/21/21 13:55 Lymphocytes # (Manual) 0.2 10^3/uL (1.5-3.5) L 06/21/21 13:55 Monocytes # (Manual) 1.5 10^3/uL (0.0-1.0) H 06/21/21 13:55 Eosinophils # (Manual) 0.0 10^3/uL (0-0.7) 06/21/21 13:55 Basophils # (Manual) 0.0 10^3/uL (0-0.1) 06/21/21 13:55 Differential Comment MANUAL DIFFERENTIAL 06/21/21 13:55 WBC Morphology 1+ TOXIC GRANULATION (NORMAL) 06/21/21 13:55 Platelet Estimate NORMAL (130-450,000) (NORMAL) 06/21/21 13:55 Platelet Morphology NORMAL APPEARANCE (NORMAL) 06/21/21 13:55 RBC Morph Micro Appear NORMAL APPEARANCE (NORMAL) 06/21/21 13:55 VBG pH 7.351 (7.31-7.41) 06/22/21 04:35 VBG pCO2 58.9 mmHg (41-51) H 06/21/21 13:55 VBG pO2 31.9 mmHg (25-47) 06/21/21 13:55 VBG HCO3 24.9 mmol/L (23-28) 06/21/21 13:55 VBG Total CO2 26.7 mmol/L (24-29) 06/21/21 13:55 VBG O2 Saturation 56.6 % (60-80) L 06/21/21 13:55 VBG Base Excess -3.8 mmol/L (-2 - +2) L 06/21/21 13:55 Ionized Calcium 1.16 mmol/L (1.15-1.33) 06/22/21 04:35 Sodium 137 mmol/L (135-145) 06/22/21 04:35 Potassium 3.7 mmol/L (3.5-5.0) 06/22/21 04:35 Chloride 104 mmol/L (101-111) 06/22/21 04:35 Carbon Dioxide 21 mmol/L (21-32) 06/22/21 04:35 Anion Gap 12.0 (6-13) 06/22/21 04:35 BUN 60 mg/dL (6-20) H 06/22/21 04:35 Creatinine 1.2 mg/dL (0.4-1.0) H 06/22/21 04:35 Estimated GFR (MDRD) 44 (>89) L 06/22/21 04:35 Glucose 131 mg/dL (70-100) H 06/22/21 04:35 Lactic Acid 1.0 mmol/L (0.5-2.2) 06/21/21 21:53 Calcium 8.5 mg/dL (8.5-10.3) 06/22/21 04:35 Phosphorus 3.7 mg/dL (2.5-4.6) 06/22/21 04:35 Magnesium 1.9 mg/dL (1.7-2.8) 06/22/21 04:35 Total Bilirubin 0.9 mg/dL (0.2-1.0) 06/21/21 13:55 AST 133 IU/L (10-42) H 06/21/21 13:55 ALT 89 IU/L (10-60) H 06/21/21 13:55 Alkaline Phosphatase 133 IU/L (42-121) H 06/21/21 13:55 Total Protein 7.6 g/dL (6.7-8.2) 06/21/21 13:55 Albumin 4.1 g/dL (3.2-5.5) 06/21/21 13:55 Globulin 3.5 g/dL (2.1-4.2) 06/21/21 13:55 Albumin/Globulin Ratio 1.2 (1.0-2.2) 06/21/21 13:55 TSH 1.53 uIU/mL (0.34-5.60) 06/22/21 04:35 Urine Color BROWN 06/21/21 14:20 Urine Clarity CLOUDY (CLEAR) 06/21/21 14:20 Urine pH 5.0 PH (5.0-7.5) 06/21/21 14:20 Ur Specific [place] 1.025 (1.002-1.030) 06/21/21 14:20 Urine Protein 30 mg/dL (NEGATIVE) H 06/21/21 14:20 Urine Glucose (UA) NEGATIVE mg/dL (NEGATIVE) 06/21/21 14:20 Urine Ketones 15 mg/dL (NEGATIVE) H 06/21/21 14:20 Urine Occult Blood LARGE (NEGATIVE) H 06/21/21 14:20 Urine Nitrite POSITIVE (NEGATIVE) H 06/21/21 14:20 Urine Bilirubin MODERATE (NEGATIVE) H 06/21/21 14:20 Urine Urobilinogen 1 (NORMAL) E.U./dL (NORMAL) 06/21/21 14:20 Ur Leukocyte Esterase TRACE (NEGATIVE) H 06/21/21 14:20 Urine RBC 6-10 /HPF (0-5) H 06/21/21 14:20 Urine WBC 4-5 /HPF (0-5) 06/21/21 14:20 Ur Squamous Epith Cells MOD Squamous (<= Few) H 06/21/21 14:20 Urine Bacteria Moderate /HPF (None Seen) H 06/21/21 14:20 Urine Casts 0-2 Granular Casts /LPF 06/21/21 14:20 Urine Mucus Few Strands 06/21/21 14:20 Urine Culture Comments NOT INDICATED 06/21/21 14:20 Nasal Adenovirus (PCR) NOT DETECTED 06/21/21 14:18 Nasal B. parapertussis DNA (PCR) NOT DETECTED 06/21/21 14:18 Nasal Coronavir 229E PCR NOT DETECTED 06/21/21 14:18 Nasal Coronavir HKU1 PCR NOT DETECTED 06/21/21 14:18 Nasal Coronavir NL63 PCR NOT DETECTED 06/21/21 14:18 Nasal Coronavir OC43 PCR NOT DETECTED 06/21/21 14:18 Nasal Enterovir/Rhinovir PCR NOT DETECTED 06/21/21 14:18 Nasal Influenza B PCR NOT DETECTED 06/21/21 14:18 Nasal Influenza A PCR NOT DETECTED 06/21/21 14:18 Nasal Parainfluen 1 PCR NOT DETECTED 06/21/21 14:18 Nasal Parainfluen 2 PCR NOT DETECTED 06/21/21 14:18 Nasal Parainfluen 3 PCR NOT DETECTED 06/21/21 14:18 Nasal Parainfluen 4 PCR NOT DETECTED 06/21/21 14:18 Nasal RSV (PCR) NOT DETECTED 06/21/21 14:18 Nasal Screen MRSA (PCR) NEGATIVE (NEGATIVE) 06/21/21 18:03 Nasal B.pertussis DNA PCR NOT DETECTED 06/21/21 14:18 Nasal C.pneumoniae (PCR) NOT DETECTED 06/21/21 14:18 Ady Human Metapneumo PCR NOT DETECTED 06/21/21 14:18 Nasal M.pneumoniae (PCR) NOT DETECTED 06/21/21 14:18 Nasal SARS-CoV-2 (PCR) NOT DETECTED 06/21/21 14:18 Stl C. diff Tox B Gene NEGATIVE (NEGATIVE) 06/21/21 14:42 Ethyl Alcohol < 5.0 mg/dL 06/21/21 13:55 Sepsis Event Note (H) - Evaluation Possible source of Sepsis: positive: Unknown ABX Reporting Has patient been on IV antibiotics over the past 48 hours?: Yes
[2021-06-22] MEDS: SODIUM CHLORIDE FLUSH 0.9% 10 ML SYRINGE IVP PRN ×3 (07:57→22:17)
[2021-06-22 08:20] LABS: BILIRUBIN,DIRECT 0.2 mg/dL (0.1-0.5); BILIRUBIN,TOTAL 1.1 mg/dL (0.2-1.0); TOTAL PROTEIN 5.7 g/dL (6.7-8.2)
[2021-06-22] MEDS: MIN OIL/DIMETHICON/COCONUT OIL 92 GM TUBE TOP PRN ×3 (09:30→22:17)
[2021-06-22] MEDS: HEPARIN 5,000 UNIT/ML VIAL SUBQ SCH ×2 (09:45→20:06)
[2021-06-22] MEDS: CIPROFLOXACIN 400 MG/200 ML 400 MG/200 ML BAG IV SCH ×2 (11:09→22:13)
[2021-06-22 12:45] LABS: ESTIMATED AVERAGE GLUCOSE 128 mg/dL (70-100); HEMOGLOBIN A1c% 6.1 % (4.27-6.07)
[2021-06-22] MEDS ORDERED: VANCOMYCIN INJ 1 GM, VANCOMYCIN INJ 250 MG in SODIUM CHLORIDE 0.9% 250 ML IV SCH (16:00)
[2021-06-22] MEDS: ATORVASTATIN 10 MG TABLET PO SCH (20:01)
[2021-06-22] MEDS: INSULIN GLARGINE 300 UNIT/3 ML PEN SUBQ SCH (20:11)
[2021-06-22] MEDS: INSULIN ASPART 300 UNIT/3 ML PEN SUBQ SCH (20:12)
[2021-06-23] MEDS: SODIUM CHLORIDE 0.9% 500 ML IV PRN (02:43)
[2021-06-23] MEDS: SODIUM CHLORIDE 0.9% 1,000 ML IV SCH ×4 (04:22→18:19)
[2021-06-23 04:39] LABS: CALCIUM, IONIZED 1.18 mmol/L (1.15-1.33); VBG PH 7.371 (7.31-7.41)
[2021-06-23 04:41] LABS: BASOPHILS % (AUTO) 0.4 %; EOSINOPHILS # (AUTO) 0.3 10^3/uL (0.0-0.7); EOSINOPHILS % (AUTO) 2.8 %; HCT - HEMATOCRIT 32.3 % (37.0-47.0); HGB - HEMOGLOBIN 11.1 g/dL (12.0-16.0); LYMPHOCYTES # (AUTO) 0.8 10^3/uL (1.5-3.5); LYMPHOCYTES % (AUTO) 6.9 %; MEAN CORPUSCULAR HEMOGLOBIN 32.5 pg (27.0-31.0); MEAN CORPUSCULAR HGB CONC 34.4 g/dL (32.0-36.0); MEAN CORPUSCULAR VOLUME 94.4 fL (81.0-99.0); MEAN PLATELET VOLUME 12.1 fL (7.9-10.8); MONOCYTES # (AUTO) 0.6 10^3/uL (0.0-1.0); MONOCYTES % (AUTO) 5.1 %; NEUTROPHILS # (AUTO) 9.4 10^3/uL (1.5-6.6); NEUTROPHILS % (AUTO) 84.4 %; PLT - PLATELET COUNT 141 10^3/uL (130-450); RED BLOOD COUNT 3.42 10^6/uL (4.20-5.40); RED CELL DISTRIBUTION WIDTH 14.6 % (12.0-15.0); WHITE BLOOD COUNT 11.1 x10^3/uL (4.8-10.8)
[2021-06-23 04:54] LABS: ALBUMIN 2.5 g/dL (3.2-5.5); BILIRUBIN,DIRECT 0.1 mg/dL (0.1-0.5); BILIRUBIN,TOTAL 0.5 mg/dL (0.2-1.0); CALCIUM 8.4 mg/dL (8.5-10.3); CREATININE 0.9 mg/dL (0.4-1.0); MAGNESIUM 1.9 mg/dL (1.7-2.8); PHOSPHORUS 2.2 mg/dL (2.5-4.6); POTASSIUM 3.6 mmol/L (3.5-5.0); TOTAL PROTEIN 5.3 g/dL (6.7-8.2)
[2021-06-23] MEDS: PANTOPRAZOLE 40 MG TABLET PO SCH (06:02)
[2021-06-23] MEDS: metroNIDAZOLE 500 MG/100 ML 500 MG/100 ML BAG IV SCH ×3 (06:02→23:12)
[2021-06-23] MEDS: LEVOTHYROXINE 112 MCG TABLET PO SCH (06:02)
[2021-06-23] MEDS ORDERED: POTASSIUM PHOSPHATE 15 MMOL in SODIUM CHLORIDE 0.9% 250 ML IV ONE (07:00)
[2021-06-23] MEDS: INSULIN ASPART 300 UNIT/3 ML PEN SUBQ SCH ×4 (07:56→20:07)
[2021-06-23] MEDS ORDERED: MAGNESIUM SULFATE 2 GRAM 2 GM/50 ML BAG IV ONE (08:23)
[2021-06-23] MEDS: HEPARIN 5,000 UNIT/ML VIAL SUBQ SCH ×2 (08:47→20:07)
[2021-06-23] MEDS: SODIUM CHLORIDE FLUSH 0.9% 10 ML SYRINGE IVP SCH ×3 (08:52→23:13)
--- NOTE | 2021-06-23 08:53 | PROVIDER PROGRESS NOTE ---
Assessment/Plan - Problem List (1) Septic shock Assessment/Plan: Improved Secondary to colitis. Suspect bacterial WBC improved from 17.7 to 11.1 Lactic acid 1.0 Blood cultures are NGTD X2 Continue Flagyl and Cipro. Discontinue Vancomycin Continue IV fluids with NS at 150ml/hr Wean off Levophed (2) Acute kidney injury Assessment/Plan: Likely prerenal. Related to diarrhea. Resolved Creatinine was 0.9. Estimated GFR 61. Patient currently on normal saline at 150 mL/h. Anticipating continued improvement in renal function. Will monitor labs daily. (3) Colitis Assessment/Plan: Suspect bacterial cause. Etiology undetermined. Stool and blood cultures ordered. C. difficile test was negative. Patient is on Cipro and Flagyl Vancomycin discontinued today. (4) Hypothermia Assessment/Plan: Resolved Temperature 37 degree Celsius after patient was warmed (5) Hypothyroidism Assessment/Plan: Synthroid 50 mcg p.o. daily. TSH 1.53 (6) Diabetes mellitus Assessment/Plan: Patient's glimepiride and Victoza held. Lantus 5 units every afternoon and sliding scale insulin. Hemoglobin A1c 6.1. (7) Hyperlipidemia Assessment/Plan: Atorvastatin 20mg po qpm Patient is on Simvastatin 20mg po qpm at home (8) GERD (gastroesophageal reflux disease) Assessment/Plan: 40 mg p.o. Daily AC - Current Meds Current Meds: Current Medications Generic Name Dose Route Start Last Admin Trade Name Freq PRN Reason Stop Dose Admin Atorvastatin Calcium 20 mg 06/22/21 21:00 06/22/21 20:01 Atorvastatin 10 Mg Tablet PO 20 mg QPM BARBY Administration Heparin Sodium (Porcine) 5,000 unit 06/21/21 21:00 06/22/21 20:06 Heparin 5,000 Unit/Ml Vial SUBQ 5,000 unit BID BARBY Administration Ciprofloxacin 400 mg in 200 mls @ 200 mls/hr 06/21/21 23:00 06/22/21 23:26 Cipro 400 Mg/200 Ml IV Infused Q12H BARBY Infusion Metronidazole 500 mg in 100 mls @ 100 mls/hr 06/21/21 23:00 06/23/21 07:04 Flagyl 500 Mg/100 Ml IV Infused Q8H BARBY Infusion Vancomycin HCl 1 gm/ 250 mls @ 167 mls/hr 06/22/21 16:00 06/22/21 18:05 Vancomycin HCl 250 mg/ Sodium IV Infused Chloride Q24H BARBY Infusion Norepinephrine Bitartrate 8 mg 250 mls @ 15 mls/hr 06/21/21 20:00 06/23/21 05:00 / Dextrose IV 2 mcg/min .[id number] BARBY 3.75 mls/hr Titration Protocol 8 MCG/MIN Sodium Chloride 1,000 mls @ 150 mls/hr 06/21/21 19:27 06/23/21 04:22 Normal Saline 0.9% IV 150 mls/hr .[id number] BARBY Administration Sodium Chloride 500 mls @ 20 mls/hr 06/21/21 22:14 06/23/21 02:43 Normal Saline 0.9% IV 20 mls/hr Q24H PRN Administration TKO RATE Insulin Aspart 1 - 5 unit 06/22/21 21:00 06/23/21 07:56 Insulin Aspart 300 Unit/3 Ml Pen SUBQ Not Given 0800,1200,1700,2100 [facility] Protocol Insulin Glargine 5 unit 06/22/21 21:00 06/22/21 20:11 Insulin Glargine 300 Unit/3 Ml Pen SUBQ 5 unit QPM BARBY Administration Levothyroxine Sodium 112 mcg 06/22/21 07:00 06/23/21 06:02 Levothyroxine 112 Mcg Tablet PO 112 mcg QDAC BARBY Administration Mineral Oil 1 applic 06/22/21 05:49 06/22/21 22:17 Min Oil/Dimethicon/Coconut Oil 92 Gm Tube TOP 1 applic PRN PRN Administration Skin Care Pantoprazole Sodium 40 mg 06/22/21 07:00 06/23/21 06:02 Pantoprazole 40 Mg Tablet PO 40 mg QDAC BARBY Administration Sodium Chloride 10 ml 06/21/21 17:00 06/22/21 22:13 Sodium Chloride Flush 0.9% 10 Ml Syringe IVP 10 ml 0100,0900,1700 BARBY Administration Sodium Chloride 10 ml 06/21/21 16:03 06/22/21 22:17 Sodium Chloride Flush 0.9% 10 Ml Syringe IVP 10 ml PRN PRN Administration NEEDED PER PROVIDER ORDERS - Lab Result Fish Bone Diagrams: 06/23/21 04:10 06/23/21 04:10 - Additional Planning My Orders: My Active Orders 06/22/21 16:00 Vancomycin Inj [Vancomycin] 1 gm Vancomycin Inj [Vancomycin Hcl] 250 mg Sodium Chloride 0.9% [Normal Saline 0.9%] 250 ml IV Q24H 06/22/21 18:23 Initiate Hypoglycemia Protocol [RC] .protocol 06/22/21 21:00 Atorvastatin [Lipitor] 20 mg PO QPM Insulin Aspart [NovoLOG] 1 - 5 unit SUBQ 0800,1200,1700,2100 Insulin Glargine [Lantus Solostar] 5 unit SUBQ QPM 06/23/21 07:00 Potassium Phosphate 15 mmol Sodium Chloride 0.9% [Normal Saline 0.9%] 250 ml IV ONCE 06/23/21 08:23 MAGNESIUM SULFATE 2 GRAMS IV X1 Magnesium Sulfate 2 Gram [Magnesium Sulfate] 2 gm in 50 ml IV ONCE 06/23/21 12:00 Neutra-Phos [K-Phos Neutral] 250 mg PO TIDWM 06/24/21 05:00 BMP - BASIC METABOLIC PANEL [CHEM] DAILYLAB CALCIUM, IONIZED ([facility]) [BG] DAILYLAB CBC - COMP BLD CT W/AUTO DIFF [HEME] DAILYLAB MAGNESIUM [CHEM] DAILYLAB PHOSPHORUS [CHEM] DAILYLAB 06/25/21 05:00 BMP - BASIC METABOLIC PANEL [CHEM] DAILYLAB CBC - COMP BLD CT W/AUTO DIFF [HEME] DAILYLAB 06/26/21 05:00 BMP - BASIC METABOLIC PANEL [CHEM] DAILYLAB CBC - COMP BLD CT W/AUTO DIFF [HEME] DAILYLAB 06/27/21 05:00 BMP - BASIC METABOLIC PANEL [CHEM] DAILYLAB CBC - COMP BLD CT W/AUTO DIFF [HEME] DAILYLAB 06/28/21 05:00 BMP - BASIC METABOLIC PANEL [CHEM] DAILYLAB CBC - COMP BLD CT W/AUTO DIFF [HEME] DAILYLAB Subjective - Subjective Patient Reports: Other (Patient is more awake and alert today. Able to carry on a conversation. Denies chest pain, dyspnea, abd pain, fever or chills) Objective Vital Signs: Vital Signs - 24 hr 06/22/21 06/22/21 06/22/21 09:00 09:15 09:45 Temperature Heart Rate [ 90 93 93 Monitoring electrodes] Respiratory 15 Rate Blood Pressure 124/50 L 135/56 H 123/49 L [Left Brachial artery] O2 Saturation 96 1106/22/21 06/22/21 10:00 10:15 10:45 Temperature 37.6 C Heart Rate [ 97 94 88 Monitoring electrodes] Respiratory 17 Rate Blood Pressure 110/48 L 107/50 L 98/46 L [Left Brachial artery] O2 Saturation 96 06/22/21 06/22/21 06/22/21 11:00 11:15 11:45 Temperature 37.6 C Heart Rate [ 79 80 94 Monitoring electrodes] Respiratory 12 Rate Blood Pressure 104/47 L 103/64 123/55 L [Left Brachial artery] O2 Saturation 96 06/22/21 06/22/21 06/22/21 12:00 12:30 13:00 Temperature 37.6 C Heart Rate [ 87 87 86 Monitoring electrodes] Respiratory 18 21 Rate Blood Pressure 96/43 L 96/43 L 96/48 L [Left Brachial artery] O2 Saturation 96 95 06/22/21 06/22/21 06/22/21 13:30 14:00 15:00 Temperature 37.6 C 37.7 C Heart Rate [ 87 83 75 Monitoring electrodes] Respiratory 18 18 Rate Blood Pressure 102/48 L 101/49 L 93/41 L [Left Brachial artery] O2 Saturation 96 95 06/22/21 06/22/21 06/22/21 15:30 15:47 16:35 Temperature Heart Rate [ 113 H 78 74 Monitoring electrodes] Respiratory Rate Blood Pressure 113/48 L 96/45 L 87/44 L [Left Brachial artery] O2 Saturation 06/22/21 06/22/21 06/22/21 16:38 17:00 18:00 Temperature 37.7 C 37.6 C Heart Rate [ 72 61 78 Monitoring electrodes] Respiratory 14 18 Rate Blood Pressure 104/45 L 105/44 L 123/53 L [Left Brachial artery] O2 Saturation 97 96 06/22/21 06/22/21 06/22/21 19:00 20:00 21:00 Temperature 37.4 C Heart Rate [ 81 78 75 Monitoring electrodes] Respiratory 17 18 16 Rate Blood Pressure 132/53 H 133/51 H 129/51 L [Left Brachial artery] O2 Saturation 95 95 95 06/22/21 06/22/21 06/23/21 22:00 23:00 00:00 Temperature 37.3 C 37.3 C Heart Rate [ 65 81 80 Monitoring electrodes] Respiratory 12 16 16 Rate Blood Pressure 94/53 L 110/48 L 100/47 L [Left Brachial artery] O2 Saturation 97 96 94 06/23/21 06/23/21 06/23/21 01:00 02:00 03:00 Temperature 37.5 C 37.6 C 37.6 C Heart Rate [ 91 92 84 Monitoring electrodes] Respiratory 20 21 16 Rate Blood Pressure 120/56 L 118/53 L 118/49 L [Left Brachial artery] O2 Saturation 95 95 95 06/23/21 06/23/21 06/23/21 04:00 05:00 06:00 Temperature 37.7 C 37.7 C 37.5 C Heart Rate [ 90 73 69 Monitoring electrodes] Respiratory 20 15 14 Rate Blood Pressure 117/50 L 102/44 L 98/46 L [Left Brachial artery] O2 Saturation 95 95 94 06/23/21 06/23/21 06/23/21 07:00 07:47 08:00 Temperature 37.4 C 97.8 C H 37.3 C Heart Rate [ 65 72 71 Monitoring electrodes] Respiratory 14 16 15 Rate Blood Pressure 116/49 L 127/53 L 142/52 H [Left Brachial artery] O2 Saturation 96 96 95 Oxygen O2 Source Room air I&O (Last 24 Hrs): Intake and Output Totals x24h 06/21/21 06/22/21 06/23/21 23:59 23:59 23:59 Intake Total 2900.000 4963.020 1448.167 Output Total 455 1293 1495 Balance 2445.000 3670.020 -46.833 General: Alert, Oriented x3, No acute distress HEENT: PERRLA, EOMI Neck: No JVD Neuro: Alert, Non Focal, Oriented Times 3 Cardiovascular: Regular rate, Normal S1, Normal S2 Respiratory: Chest non-tender, No respiratory distress, Breath sounds nml Abdomen: Normal bowel sounds, Soft, No tenderness, No masses Extremities: No clubbing, No edema, No tenderness/swelling Skin: No rashes, No breakdown, No significant lesion - Results Results: Laboratory Results WBC 11.1 x10^3/uL (4.8-10.8) H 06/23/21 04:10 RBC 3.42 10^6/uL (4.20-5.40) L 06/23/21 04:10 Hgb 11.1 g/dL (12.0-16.0) L 06/23/21 04:10 Hct 32.3 % (37.0-47.0) L 06/23/21 04:10 MCV 94.4 fL (81.0-99.0) 06/23/21 04:10 MCH 32.5 pg (27.0-31.0) H 06/23/21 04:10 MCHC 34.4 g/dL (32.0-36.0) 06/23/21 04:10 RDW 14.6 % (12.0-15.0) 06/23/21 04:10 Plt Count 141 10^3/uL (130-450) 06/23/21 04:10 MPV 12.1 fL (7.9-10.8) H 06/23/21 04:10 Neut # (Auto) 9.4 10^3/uL (1.5-6.6) H 06/23/21 04:10 Lymph # (Auto) 0.8 10^3/uL (1.5-3.5) L 06/23/21 04:10 [place] # (Auto) 0.6 10^3/uL (0.0-1.0) 06/23/21 04:10 Eos # (Auto) 0.3 10^3/uL (0.0-0.7) 06/23/21 04:10 Baso # (Auto) 0.0 10^3/uL (0.0-0.1) 06/23/21 04:10 Absolute Nucleated RBC 0.00 x10^3/uL 06/23/21 04:10 Total Counted 100 06/21/21 13:55 Band Neuts % (Manual) 8 % (0-10) 06/21/21 13:55 Abnorm Lymph % (Manual) 0 % 06/21/21 13:55 Nucleated RBC % 0.0 /100WBC 06/23/21 04:10 Neutrophils # (Manual) 20.1 10^3/uL (1.5-6.6) H 06/21/21 13:55 Lymphocytes # (Manual) 0.2 10^3/uL (1.5-3.5) L 06/21/21 13:55 Monocytes # (Manual) 1.5 10^3/uL (0.0-1.0) H 06/21/21 13:55 Eosinophils # (Manual) 0.0 10^3/uL (0-0.7) 06/21/21 13:55 Basophils # (Manual) 0.0 10^3/uL (0-0.1) 06/21/21 13:55 Differential Comment MANUAL DIFFERENTIAL 06/21/21 13:55 WBC Morphology 1+ TOXIC GRANULATION (NORMAL) 06/21/21 13:55 Platelet Estimate NORMAL (130-450,000) (NORMAL) 06/21/21 13:55 Platelet Morphology NORMAL APPEARANCE (NORMAL) 06/21/21 13:55 RBC Morph Micro Appear NORMAL APPEARANCE (NORMAL) 06/21/21 13:55 VBG pH 7.371 (7.31-7.41) 06/23/21 04:10 VBG pCO2 58.9 mmHg (41-51) H 06/21/21 13:55 VBG pO2 31.9 mmHg (25-47) 06/21/21 13:55 VBG HCO3 24.9 mmol/L (23-28) 06/21/21 13:55 VBG Total CO2 26.7 mmol/L (24-29) 06/21/21 13:55 VBG O2 Saturation 56.6 % (60-80) L 06/21/21 13:55 VBG Base Excess -3.8 mmol/L (-2 - +2) L 06/21/21 13:55 Ionized Calcium 1.18 mmol/L (1.15-1.33) 06/23/21 04:10 Sodium 141 mmol/L (135-145) 06/23/21 04:10 Potassium 3.6 mmol/L (3.5-5.0) 06/23/21 04:10 Chloride 111 mmol/L (101-111) 06/23/21 04:10 Carbon Dioxide 22 mmol/L (21-32) 06/23/21 04:10 Anion Gap 8.0 (6-13) 06/23/21 04:10 BUN 37 mg/dL (6-20) H 06/23/21 04:10 Creatinine 0.9 mg/dL (0.4-1.0) 06/23/21 04:10 Estimated GFR (MDRD) 61 (>89) L 06/23/21 04:10 Glucose 92 mg/dL (70-100) 06/23/21 04:10 Estimat Average Glucose 128 mg/dL (70-100) H 06/22/21 04:35 Hemoglobin A1c % 6.1 % (4.27-6.07) H 06/22/21 04:35 Lactic Acid 1.0 mmol/L (0.5-2.2) 06/21/21 21:53 Calcium 8.4 mg/dL (8.5-10.3) L 06/23/21 04:10 Phosphorus 2.2 mg/dL (2.5-4.6) L 06/23/21 04:10 Magnesium 1.9 mg/dL (1.7-2.8) 06/23/21 04:10 Total Bilirubin 0.5 mg/dL (0.2-1.0) 06/23/21 04:10 Direct Bilirubin 0.1 mg/dL (0.1-0.5) 06/23/21 04:10 AST 81 IU/L (10-42) H 06/23/21 04:10 ALT 48 IU/L (10-60) 06/23/21 04:10 Alkaline Phosphatase 71 IU/L (42-121) 06/23/21 04:10 Total Protein 5.3 g/dL (6.7-8.2) L 06/23/21 04:10 Albumin 2.5 g/dL (3.2-5.5) L 06/23/21 04:10 Globulin 2.8 g/dL (2.1-4.2) 06/23/21 04:10 Albumin/Globulin Ratio 1.2 (1.0-2.2) 06/21/21 13:55 TSH 1.53 uIU/mL (0.34-5.60) 06/22/21 04:35 Urine Color BROWN 06/21/21 14:20 Urine Clarity CLOUDY (CLEAR) 06/21/21 14:20 Urine pH 5.0 PH (5.0-7.5) 06/21/21 14:20 Ur Specific [place] 1.025 (1.002-1.030) 06/21/21 14:20 Urine Protein 30 mg/dL (NEGATIVE) H 06/21/21 14:20 Urine Glucose (UA) NEGATIVE mg/dL (NEGATIVE) 06/21/21 14:20 Urine Ketones 15 mg/dL (NEGATIVE) H 06/21/21 14:20 Urine Occult Blood LARGE (NEGATIVE) H 06/21/21 14:20 Urine Nitrite POSITIVE (NEGATIVE) H 06/21/21 14:20 Urine Bilirubin MODERATE (NEGATIVE) H 06/21/21 14:20 Urine Urobilinogen 1 (NORMAL) E.U./dL (NORMAL) 06/21/21 14:20 Ur Leukocyte Esterase TRACE (NEGATIVE) H 06/21/21 14:20 Urine RBC 6-10 /HPF (0-5) H 06/21/21 14:20 Urine WBC 4-5 /HPF (0-5) 06/21/21 14:20 Ur Squamous Epith Cells MOD Squamous (<= Few) H 06/21/21 14:20 Urine Bacteria Moderate /HPF (None Seen) H 06/21/21 14:20 Urine Casts 0-2 Granular Casts /LPF 06/21/21 14:20 Urine Mucus Few Strands 06/21/21 14:20 Urine Culture Comments NOT INDICATED 06/21/21 14:20 Nasal Adenovirus (PCR) NOT DETECTED 06/21/21 14:18 Nasal B. parapertussis DNA (PCR) NOT DETECTED 06/21/21 14:18 Nasal Coronavir 229E PCR NOT DETECTED 06/21/21 14:18 Nasal Coronavir HKU1 PCR NOT DETECTED 06/21/21 14:18 Nasal Coronavir NL63 PCR NOT DETECTED 06/21/21 14:18 Nasal Coronavir OC43 PCR NOT DETECTED 06/21/21 14:18 Nasal Enterovir/Rhinovir PCR NOT DETECTED 06/21/21 14:18 Nasal Influenza B PCR NOT DETECTED 06/21/21 14:18 Nasal Influenza A PCR NOT DETECTED 06/21/21 14:18 Nasal Parainfluen 1 PCR NOT DETECTED 06/21/21 14:18 Nasal Parainfluen 2 PCR NOT DETECTED 06/21/21 14:18 Nasal Parainfluen 3 PCR NOT DETECTED 06/21/21 14:18 Nasal Parainfluen 4 PCR NOT DETECTED 06/21/21 14:18 Nasal RSV (PCR) NOT DETECTED 06/21/21 14:18 Nasal Screen MRSA (PCR) NEGATIVE (NEGATIVE) 06/21/21 18:03 Nasal B.pertussis DNA PCR NOT DETECTED 06/21/21 14:18 Nasal C.pneumoniae (PCR) NOT DETECTED 06/21/21 14:18 Ady Human Metapneumo PCR NOT DETECTED 06/21/21 14:18 Nasal M.pneumoniae (PCR) NOT DETECTED 06/21/21 14:18 Nasal SARS-CoV-2 (PCR) NOT DETECTED 06/21/21 14:18 Stl C. 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
[2021-06-23] MEDS: CIPROFLOXACIN 400 MG/200 ML 400 MG/200 ML BAG IV SCH ×2 (11:02→23:11)
[2021-06-23] MEDS: NEUTRA-PHOS 250 MG TABLET PO SCH ×2 (11:47→16:59)
[2021-06-23] MEDS: SODIUM CHLORIDE FLUSH 0.9% 10 ML SYRINGE IVP PRN ×2 (15:26→17:01)
[2021-06-23] MEDS: ACETAMINOPHEN 325 MG TABLET PO PRN (16:59)
[2021-06-23] MEDS: ATORVASTATIN 10 MG TABLET PO SCH (20:05)
[2021-06-23] MEDS: INSULIN GLARGINE 300 UNIT/3 ML PEN SUBQ SCH (20:08)
[2021-06-24] MEDS: SODIUM CHLORIDE 0.9% 1,000 ML IV SCH ×4 (02:04→20:44)
[2021-06-24] MEDS: SODIUM CHLORIDE FLUSH 0.9% 10 ML SYRINGE IVP PRN (04:27)
[2021-06-24 04:49] LABS: BASOPHILS % (AUTO) 0.4 %; EOSINOPHILS % (AUTO) 0.4 %; HCT - HEMATOCRIT 31.1 % (37.0-47.0); HGB - HEMOGLOBIN 10.6 g/dL (12.0-16.0); LYMPHOCYTES # (AUTO) 0.7 10^3/uL (1.5-3.5); MEAN CORPUSCULAR HEMOGLOBIN 32.6 pg (27.0-31.0); MEAN CORPUSCULAR HGB CONC 34.1 g/dL (32.0-36.0); MEAN CORPUSCULAR VOLUME 95.7 fL (81.0-99.0); MEAN PLATELET VOLUME 12.1 fL (7.9-10.8); MONOCYTES # (AUTO) 0.4 10^3/uL (0.0-1.0); MONOCYTES % (AUTO) 5.9 %; NEUTROPHILS # (AUTO) 5.9 10^3/uL (1.5-6.6); NEUTROPHILS % (AUTO) 82.9 %; PLT - PLATELET COUNT 123 10^3/uL (130-450); RED BLOOD COUNT 3.25 10^6/uL (4.20-5.40); RED CELL DISTRIBUTION WIDTH 14.7 % (12.0-15.0); WHITE BLOOD COUNT 7.2 x10^3/uL (4.8-10.8)
[2021-06-24 04:52] LABS: CALCIUM, IONIZED 1.17 mmol/L (1.15-1.33); VBG PH 7.378 (7.31-7.41)
[2021-06-24 05:01] LABS: CALCIUM 8.2 mg/dL (8.5-10.3); CREATININE 0.7 mg/dL (0.4-1.0); PHOSPHORUS 2.5 mg/dL (2.5-4.6); POTASSIUM 3.9 mmol/L (3.5-5.0)
[2021-06-24] MEDS: PANTOPRAZOLE 40 MG TABLET PO SCH (07:01)
[2021-06-24] MEDS: LEVOTHYROXINE 112 MCG TABLET PO SCH (07:01)
[2021-06-24] MEDS: metroNIDAZOLE 500 MG/100 ML 500 MG/100 ML BAG IV SCH (07:07)
[2021-06-24] MEDS: NEUTRA-PHOS 250 MG TABLET PO SCH ×3 (08:30→17:23)
[2021-06-24] MEDS: INSULIN ASPART 300 UNIT/3 ML PEN SUBQ SCH ×4 (08:36→20:29)
[2021-06-24] MEDS: HEPARIN 5,000 UNIT/ML VIAL SUBQ SCH ×2 (09:09→20:28)
[2021-06-24] MEDS: SODIUM CHLORIDE FLUSH 0.9% 10 ML SYRINGE IVP SCH ×2 (09:42→20:28)
[2021-06-24] MEDS: CIPROFLOXACIN 400 MG/200 ML 400 MG/200 ML BAG IV SCH (10:55)
--- NOTE | 2021-06-24 13:15 | PROVIDER PROGRESS NOTE ---
Assessment/Plan - Problem List (1) Septic shock Assessment/Plan: Improved/Resolved Secondary to colitis. Suspect bacterial WBC improved from 11.1 to 7.2 Blood cultures are NGTD X3 Switch flagyl and cipro to IV for 4 more days Continue IV fluids with NS at 175ml/hr Off levophed on 06/23/21 Patient downgraded to med/surg status PT/OT to evaluate and treat patient Social work to facilitate placement to a SNF (2) Acute kidney injury Assessment/Plan: Likely prerenal. Related to diarrhea. Resolved Creatinine was 0.7. Estimated GFR 81. Patient currently on normal saline at 75 mL/h. Anticipating continued improvement in renal function. Will monitor labs daily. (3) Colitis Assessment/Plan: Suspect bacterial cause. Etiology undetermined. Stool and blood cultures ordered. C. difficile test was negative. Patient is on Cipro and Flagyl Vancomycin discontinued today. (4) Hypothermia Assessment/Plan: Resolved Temperature 37 degree Celsius after patient was warmed (5) Hypothyroidism Assessment/Plan: Synthroid 50 mcg p.o. daily. TSH 1.53 (6) Diabetes mellitus Assessment/Plan: Patient's glimepiride and Victoza held. Lantus 5 units every afternoon and sliding scale insulin. Hemoglobin A1c 6.1. (7) Hyperlipidemia Assessment/Plan: Atorvastatin 20mg po qpm Patient is on Simvastatin 20mg po qpm at home (8) GERD (gastroesophageal reflux disease) Assessment/Plan: 40 mg p.o. Daily AC - Current Meds Current Meds: Current Medications Generic Name Dose Route Start Last Admin Trade Name Freq PRN Reason Stop Dose Admin Acetaminophen 650 mg 06/21/21 16:03 06/23/21 16:59 Acetaminophen 325 Mg Tablet PO 650 mg Q4HR PRN Administration Pain 1 to 4 Atorvastatin Calcium 20 mg 06/22/21 21:00 06/23/21 20:05 Atorvastatin 10 Mg Tablet PO 20 mg QPM BARBY Administration Heparin Sodium (Porcine) 5,000 unit 06/21/21 21:00 06/24/21 09:09 Heparin 5,000 Unit/Ml Vial SUBQ 5,000 unit BID BARBY Administration Ciprofloxacin 400 mg in 200 mls @ 200 mls/hr 06/21/21 23:00 06/24/21 11:55 Cipro 400 Mg/200 Ml IV Infused Q12H BARBY Infusion Metronidazole 500 mg in 100 mls @ 100 mls/hr 06/21/21 23:00 06/24/21 08:10 Flagyl 500 Mg/100 Ml IV Infused Q8H BARBY Infusion Sodium Chloride 500 mls @ 20 mls/hr 06/21/21 22:14 06/24/21 05:00 Normal Saline 0.9% IV 10 mls/hr Q24H PRN Infusion TKO RATE Sodium Chloride 1,000 mls @ 75 mls/hr 06/24/21 07:42 06/24/21 09:39 Normal Saline 0.9% IV 75 mls/hr .[id number] BARBY Administration Insulin Aspart 1 - 5 unit 06/22/21 21:00 06/24/21 12:16 Insulin Aspart 300 Unit/3 Ml Pen SUBQ 1 unit 0800,1200,1700,2100 BARBY Administration Protocol Insulin Glargine 5 unit 06/22/21 21:00 06/23/21 20:08 Insulin Glargine 300 Unit/3 Ml Pen SUBQ 5 unit QPM BARBY Administration Levothyroxine Sodium 112 mcg 06/22/21 07:00 06/24/21 07:01 Levothyroxine 112 Mcg Tablet PO 112 mcg QDAC BARBY Administration Mineral Oil 1 applic 06/22/21 05:49 06/22/21 22:17 Min Oil/Dimethicon/Coconut Oil 92 Gm Tube TOP 1 applic PRN PRN Administration Skin Care Pantoprazole Sodium 40 mg 06/22/21 07:00 06/24/21 07:01 Pantoprazole 40 Mg Tablet PO 40 mg QDAC BARBY Administration Sodium Chloride 10 ml 06/21/21 17:00 06/24/21 09:42 Sodium Chloride Flush 0.9% 10 Ml Syringe IVP 30 ml 0100,0900,1700 BARBY Administration Sodium Chloride 10 ml 06/21/21 16:03 06/24/21 04:27 Sodium Chloride Flush 0.9% 10 Ml Syringe IVP 30 ml PRN PRN Administration NEEDED PER PROVIDER ORDERS Sodium Phosphate 250 mg 06/23/21 12:00 06/24/21 12:16 Neutra-Phos 250 Mg Tablet PO 250 mg TIDWM BARBY Administration - Lab Result Fish Bone Diagrams: 06/24/21 04:15 06/24/21 04:15 - Additional Planning My Orders: My Active Orders 06/24/21 Evaluate and Treat OT [OT] Routine 06/24/21 07:42 Sodium Chloride 0.9% [Normal Saline 0.9%] 1,000 ml IV 75 mls/hr 06/24/21 09:00 Evaluate and Treat PT [PT] Routine 06/24/21 Lunch Dysphagia Advanced Diet [DIET] 06/25/21 05:00 BMP - BASIC METABOLIC PANEL [CHEM] DAILYLAB CBC - COMP BLD CT W/AUTO DIFF [HEME] DAILYLAB 06/26/21 05:00 BMP - BASIC METABOLIC PANEL [CHEM] DAILYLAB CBC - COMP BLD CT W/AUTO DIFF [HEME] DAILYLAB 06/27/21 05:00 BMP - BASIC METABOLIC PANEL [CHEM] DAILYLAB CBC - COMP BLD CT W/AUTO DIFF [HEME] DAILYLAB 06/28/21 05:00 BMP - BASIC METABOLIC PANEL [CHEM] DAILYLAB CBC - COMP BLD CT W/AUTO DIFF [HEME] DAILYLAB Subjective - Subjective Patient Reports: Other (Patient is very alert, awake and oriented X3. She denied any complains. Blood pressure remained stable after pressor was discontinued last night) Objective Vital Signs: Vital Signs - 24 hr 06/23/21 06/23/21 06/23/21 14:00 14:30 15:00 Temperature 37 C 37 C 37 C Heart Rate [ 56 L 64 62 Monitoring electrodes] Respiratory 12 13 15 Rate Blood Pressure 115/56 L 117/46 L 109/47 L [Left Brachial artery] O2 Saturation 98 99 99 06/23/21 06/23/21 06/23/21 15:30 16:00 16:30 Temperature 36.9 C 36.9 C 36.9 C Heart Rate [ 62 67 62 Monitoring electrodes] Respiratory 16 13 14 Rate Blood Pressure 113/52 L 122/53 L 114/54 L [Left Brachial artery] O2 Saturation 99 99 99 06/23/21 06/23/21 06/23/21 17:00 18:00 19:00 Temperature 36.9 C 37 C Heart Rate [ 71 62 57 L Monitoring electrodes] Respiratory 12 16 13 Rate Blood Pressure 116/55 L 99/49 L 97/55 L [Left Brachial artery] O2 Saturation 97 96 98 06/23/21 06/23/21 06/23/21 20:00 21:00 22:00 Temperature Heart Rate [ 61 72 60 Monitoring electrodes] Respiratory 13 16 17 Rate Blood Pressure 115/66 114/50 L 96/46 L [Left Brachial artery] O2 Saturation 98 97 97 06/23/21 06/24/21 06/24/21 23:00 00:00 01:00 Temperature 37.3 C Heart Rate [ 67 58 L 64 Monitoring electrodes] Respiratory 16 8 L 17 Rate Blood Pressure 115/61 117/55 L 116/59 L [Left Brachial artery] O2 Saturation 96 96 97 06/24/21 06/24/21 06/24/21 02:00 03:00 04:00 Temperature 37.2 C Heart Rate [ 65 54 L 55 L Monitoring electrodes] Respiratory 20 14 15 Rate Blood Pressure 113/60 93/52 L 111/51 L [Left Brachial artery] O2 Saturation 97 98 96 06/24/21 06/24/21 06/24/21 05:00 06:00 07:00 Temperature 37.1 C Heart Rate [ 59 L 49 L 61 Monitoring electrodes] Respiratory 11 L 13 10 L Rate Blood Pressure 116/57 L 104/53 L 132/67 H [Left Brachial artery] O2 Saturation 96 98 97 06/24/21 06/24/21 08:00 11:07 Temperature 37 C Heart Rate [ 70 70 Monitoring electrodes] Respiratory 15 13 Rate Blood Pressure 122/59 L 148/78 H [Left Brachial artery] O2 Saturation 95 96 Oxygen O2 Source Room air I&O (Last 24 Hrs): Intake and Output Totals x24h 06/22/21 06/23/21 06/24/21 23:59 23:59 23:59 Intake Total 4963.020 5694.518 2747.0 Output Total 1293 2339 410 Balance 3670.020 3355.518 2337.0 General: Alert, Oriented x3, No acute distress HEENT: PERRLA, EOMI Neck: Supple, No JVD Neuro: Alert, Non Focal, Oriented Times 3 Cardiovascular: Regular rate, Normal S1, Normal S2 Respiratory: Chest non-tender, No respiratory distress, Breath sounds nml Abdomen: Normal bowel sounds, Soft Extremities: No clubbing, No cyanosis, No edema, No tenderness/swelling Skin: No rashes, No breakdown, No significant lesion - Results Results: Laboratory Results WBC 7.2 x10^3/uL (4.8-10.8) 06/24/21 04:15 RBC 3.25 10^6/uL (4.20-5.40) L 06/24/21 04:15 Hgb 10.6 g/dL (12.0-16.0) L 06/24/21 04:15 Hct 31.1 % (37.0-47.0) L 06/24/21 04:15 MCV 95.7 fL (81.0-99.0) 06/24/21 04:15 MCH 32.6 pg (27.0-31.0) H 06/24/21 04:15 MCHC 34.1 g/dL (32.0-36.0) 06/24/21 04:15 RDW 14.7 % (12.0-15.0) 06/24/21 04:15 Plt Count 123 10^3/uL (130-450) L 06/24/21 04:15 MPV 12.1 fL (7.9-10.8) H 06/24/21 04:15 Neut # (Auto) 5.9 10^3/uL (1.5-6.6) 06/24/21 04:15 Lymph # (Auto) 0.7 10^3/uL (1.5-3.5) L 06/24/21 04:15 [place] # (Auto) 0.4 10^3/uL (0.0-1.0) 06/24/21 04:15 Eos # (Auto) 0.0 10^3/uL (0.0-0.7) 06/24/21 04:15 Baso # (Auto) 0.0 10^3/uL (0.0-0.1) 06/24/21 04:15 Absolute Nucleated RBC 0.00 x10^3/uL 06/24/21 04:15 Total Counted 100 06/21/21 13:55 Band Neuts % (Manual) 8 % (0-10) 06/21/21 13:55 Abnorm Lymph % (Manual) 0 % 06/21/21 13:55 Nucleated RBC % 0.0 /100WBC 06/24/21 04:15 Neutrophils # (Manual) 20.1 10^3/uL (1.5-6.6) H 06/21/21 13:55 Lymphocytes # (Manual) 0.2 10^3/uL (1.5-3.5) L 06/21/21 13:55 Monocytes # (Manual) 1.5 10^3/uL (0.0-1.0) H 06/21/21 13:55 Eosinophils # (Manual) 0.0 10^3/uL (0-0.7) 06/21/21 13:55 Basophils # (Manual) 0.0 10^3/uL (0-0.1) 06/21/21 13:55 Differential Comment MANUAL DIFFERENTIAL 06/21/21 13:55 WBC Morphology 1+ TOXIC GRANULATION (NORMAL) 06/21/21 13:55 Platelet Estimate NORMAL (130-450,000) (NORMAL) 06/21/21 13:55 Platelet Morphology NORMAL APPEARANCE (NORMAL) 06/21/21 13:55 RBC Morph Micro Appear NORMAL APPEARANCE (NORMAL) 06/21/21 13:55 VBG pH 7.378 (7.31-7.41) 06/24/21 04:15 VBG pCO2 58.9 mmHg (41-51) H 06/21/21 13:55 VBG pO2 31.9 mmHg (25-47) 06/21/21 13:55 VBG HCO3 24.9 mmol/L (23-28) 06/21/21 13:55 VBG Total CO2 26.7 mmol/L (24-29) 06/21/21 13:55 VBG O2 Saturation 56.6 % (60-80) L 06/21/21 13:55 VBG Base Excess -3.8 mmol/L (-2 - +2) L 06/21/21 13:55 Ionized Calcium 1.17 mmol/L (1.15-1.33) 06/24/21 04:15 Sodium 141 mmol/L (135-145) 06/24/21 04:15 Potassium 3.9 mmol/L (3.5-5.0) 06/24/21 04:15 Chloride 112 mmol/L (101-111) H 06/24/21 04:15 Carbon Dioxide 23 mmol/L (21-32) 06/24/21 04:15 Anion Gap 6.0 (6-13) 06/24/21 04:15 BUN 27 mg/dL (6-20) H 06/24/21 04:15 Creatinine 0.7 mg/dL (0.4-1.0) 06/24/21 04:15 Estimated GFR (MDRD) 81 (>89) L 06/24/21 04:15 Glucose 93 mg/dL (70-100) 06/24/21 04:15 POC Whole Bld Glucose 146 mg/dL (70 - 100) H 06/24/21 12:10 Estimat Average Glucose 128 mg/dL (70-100) H 06/22/21 04:35 Hemoglobin A1c % 6.1 % (4.27-6.07) H 06/22/21 04:35 Lactic Acid 1.0 mmol/L (0.5-2.2) 06/21/21 21:53 Calcium 8.2 mg/dL (8.5-10.3) L 06/24/21 04:15 Phosphorus 2.5 mg/dL (2.5-4.6) 06/24/21 04:15 Magnesium 2.0 mg/dL (1.7-2.8) 06/24/21 04:15 Total Bilirubin 0.5 mg/dL (0.2-1.0) 06/23/21 04:10 Direct Bilirubin 0.1 mg/dL (0.1-0.5) 06/23/21 04:10 AST 81 IU/L (10-42) H 06/23/21 04:10 ALT 48 IU/L (10-60) 06/23/21 04:10 Alkaline Phosphatase 71 IU/L (42-121) 06/23/21 04:10 Total Protein 5.3 g/dL (6.7-8.2) L 06/23/21 04:10 Albumin 2.5 g/dL (3.2-5.5) L 06/23/21 04:10 Globulin 2.8 g/dL (2.1-4.2) 06/23/21 04:10 Albumin/Globulin Ratio 1.2 (1.0-2.2) 06/21/21 13:55 TSH 1.53 uIU/mL (0.34-5.60) 06/22/21 04:35 Urine Color BROWN 06/21/21 14:20 Urine Clarity CLOUDY (CLEAR) 06/21/21 14:20 Urine pH 5.0 PH (5.0-7.5) 06/21/21 14:20 Ur Specific [place] 1.025 (1.002-1.030) 06/21/21 14:20 Urine Protein 30 mg/dL (NEGATIVE) H 06/21/21 14:20 Urine Glucose (UA) NEGATIVE mg/dL (NEGATIVE) 06/21/21 14:20 Urine Ketones 15 mg/dL (NEGATIVE) H 06/21/21 14:20 Urine Occult Blood LARGE (NEGATIVE) H 06/21/21 14:20 Urine Nitrite POSITIVE (NEGATIVE) H 06/21/21 14:20 Urine Bilirubin MODERATE (NEGATIVE) H 06/21/21 14:20 Urine Urobilinogen 1 (NORMAL) E.U./dL (NORMAL) 06/21/21 14:20 Ur Leukocyte Esterase TRACE (NEGATIVE) H 06/21/21 14:20 Urine RBC 6-10 /HPF (0-5) H 06/21/21 14:20 Urine WBC 4-5 /HPF (0-5) 06/21/21 14:20 Ur Squamous Epith Cells MOD Squamous (<= Few) H 06/21/21 14:20 Urine Bacteria Moderate /HPF (None Seen) H 06/21/21 14:20 Urine Casts 0-2 Granular Casts /LPF 06/21/21 14:20 Urine Mucus Few Strands 06/21/21 14:20 Urine Culture Comments NOT INDICATED 06/21/21 14:20 Nasal Adenovirus (PCR) NOT DETECTED 06/21/21 14:18 Nasal B. parapertussis DNA (PCR) NOT DETECTED 06/21/21 14:18 Nasal Coronavir 229E PCR NOT DETECTED 06/21/21 14:18 Nasal Coronavir HKU1 PCR NOT DETECTED 06/21/21 14:18 Nasal Coronavir NL63 PCR NOT DETECTED 06/21/21 14:18 Nasal Coronavir OC43 PCR NOT DETECTED 06/21/21 14:18 Nasal Enterovir/Rhinovir PCR NOT DETECTED 06/21/21 14:18 Nasal Influenza B PCR NOT DETECTED 06/21/21 14:18 Nasal Influenza A PCR NOT DETECTED 06/21/21 14:18 Nasal Parainfluen 1 PCR NOT DETECTED 06/21/21 14:18 Nasal Parainfluen 2 PCR NOT DETECTED 06/21/21 14:18 Nasal Parainfluen 3 PCR NOT DETECTED 06/21/21 14:18 Nasal Parainfluen 4 PCR NOT DETECTED 06/21/21 14:18 Nasal RSV (PCR) NOT DETECTED 06/21/21 14:18 Nasal Screen MRSA (PCR) NEGATIVE (NEGATIVE) 06/21/21 18:03 Nasal B.pertussis DNA PCR NOT DETECTED 06/21/21 14:18 Nasal C.pneumoniae (PCR) NOT DETECTED 06/21/21 14:18 Ady Human Metapneumo PCR NOT DETECTED 06/21/21 14:18 Nasal M.pneumoniae (PCR) NOT DETECTED 06/21/21 14:18 Nasal SARS-CoV-2 (PCR) NOT DETECTED 06/21/21 14:18 Stl C. diff Tox B Gene NEGATIVE (NEGATIVE) 06/21/21 14:42 Ethyl Alcohol < 5.0 mg/dL 06/21/21 13:55 Sepsis Event Note (H) - Evaluation Current Stage of Sepsis: Septic shock Possible source of Sepsis: positive: GI tract/intra-abdominal, Unknown - Sepsis Criteria Sepsis Criteria: Recorded Temperature greater than 38.3C or Less than 36C, WBC count greater than 12,000 or less than 4000, ELECTRICAL TECH: altered consciousness (unrelated to primary neuro pathology), Metabolic: lactate > 2 mmol/L ABX Reporting Has patient been on IV antibiotics over the past 48 hours?: No
[2021-06-24] MEDS: SACCHAROMYCES BOULARDII 250 MG CAPSULE PO SCH (17:23)
[2021-06-24] MEDS: metroNIDAZOLE 250 MG TABLET PO SCH (17:23)
[2021-06-24] MEDS: ATORVASTATIN 10 MG TABLET PO SCH (20:29)
[2021-06-24] MEDS: CIPROFLOXACIN 250 MG TABLET PO SCH (20:29)
[2021-06-24] MEDS: INSULIN GLARGINE 300 UNIT/3 ML PEN SUBQ SCH (20:30)
[2021-06-25 05:03] LABS: BASOPHILS % (AUTO) 0.3 %; EOSINOPHILS # (AUTO) 0.1 10^3/uL (0.0-0.7); EOSINOPHILS % (AUTO) 1.5 %; HCT - HEMATOCRIT 31.9 % (37.0-47.0); HGB - HEMOGLOBIN 10.7 g/dL (12.0-16.0); LYMPHOCYTES # (AUTO) 0.9 10^3/uL (1.5-3.5); LYMPHOCYTES % (AUTO) 14.8 %; MEAN CORPUSCULAR HEMOGLOBIN 31.8 pg (27.0-31.0); MEAN CORPUSCULAR HGB CONC 33.5 g/dL (32.0-36.0); MEAN CORPUSCULAR VOLUME 94.9 fL (81.0-99.0); MEAN PLATELET VOLUME 11.9 fL (7.9-10.8); MONOCYTES # (AUTO) 0.5 10^3/uL (0.0-1.0); MONOCYTES % (AUTO) 7.7 %; NEUTROPHILS # (AUTO) 4.5 10^3/uL (1.5-6.6); NEUTROPHILS % (AUTO) 75.2 %; PLT - PLATELET COUNT 132 10^3/uL (130-450); RED BLOOD COUNT 3.36 10^6/uL (4.20-5.40); RED CELL DISTRIBUTION WIDTH 14.6 % (12.0-15.0)
[2021-06-25 05:10] LABS: CALCIUM 8.2 mg/dL (8.5-10.3); CREATININE 0.7 mg/dL (0.4-1.0); POTASSIUM 3.7 mmol/L (3.5-5.0)
[2021-06-25] MEDS: SODIUM CHLORIDE FLUSH 0.9% 10 ML SYRINGE IVP SCH ×3 (06:31→17:05)
[2021-06-25] MEDS: LEVOTHYROXINE 112 MCG TABLET PO SCH (06:31)
[2021-06-25] MEDS: PANTOPRAZOLE 40 MG TABLET PO SCH (06:32)
[2021-06-25] MEDS: metroNIDAZOLE 250 MG TABLET PO SCH ×3 (09:01→17:04)
[2021-06-25] MEDS: CIPROFLOXACIN 250 MG TABLET PO SCH ×2 (09:02→21:04)
[2021-06-25] MEDS: SACCHAROMYCES BOULARDII 250 MG CAPSULE PO SCH ×2 (09:02→17:03)
[2021-06-25] MEDS: INSULIN ASPART 300 UNIT/3 ML PEN SUBQ SCH ×4 (09:02→20:58)
[2021-06-25] MEDS: NEUTRA-PHOS 250 MG TABLET PO SCH ×3 (09:02→17:04)
[2021-06-25] MEDS: HEPARIN 5,000 UNIT/ML VIAL SUBQ SCH ×2 (09:03→21:03)
--- NOTE | 2021-06-25 09:05 | PROVIDER PROGRESS NOTE ---
Assessment/Plan - Problem List (1) Septic shock Assessment/Plan: Improved/Resolved Secondary to colitis. Suspect bacterial WBC today is 6.0 Blood cultures are NGTD X3 On flagyl and cipro po for 3 more days Continue IV fluids with NS at 75ml/hr Off levophed on 06/23/21 Patient downgraded to med/surg status PT/OT to evaluate and treat patient Social work to facilitate placement to a SNF (2) Acute kidney injury Assessment/Plan: Likely prerenal. Related to diarrhea. Resolved Creatinine was 0.7. Estimated GFR 81. Patient currently on normal saline at 75 mL/h. Anticipating continued improvement in renal function. Will monitor labs daily. (3) Colitis Assessment/Plan: Suspect bacterial cause. Etiology undetermined. Stool and blood cultures ordered. C. difficile test was negative. Patient is on Cipro and Flagyl Vancomycin discontinued today. (4) Hypothermia Assessment/Plan: Resolved Temperature 37 degree Celsius after patient was warmed (5) Hypothyroidism Assessment/Plan: Synthroid 50 mcg p.o. daily. TSH 1.53 (6) Diabetes mellitus Assessment/Plan: Patient's glimepiride and Victoza held. Lantus 5 units every afternoon and sliding scale insulin. Hemoglobin A1c 6.1. (7) Hyperlipidemia Assessment/Plan: Atorvastatin 20mg po qpm Patient is on Simvastatin 20mg po qpm at home (8) GERD (gastroesophageal reflux disease) Assessment/Plan: 40 mg p.o. Daily AC - Current Meds Current Meds: Current Medications Generic Name Dose Route Start Last Admin Trade Name Freq PRN Reason Stop Dose Admin Acetaminophen 650 mg 06/21/21 16:03 06/23/21 16:59 Acetaminophen 325 Mg Tablet PO 650 mg Q4HR PRN Administration Pain 1 to 4 Atorvastatin Calcium 20 mg 06/22/21 21:00 06/24/21 20:29 Atorvastatin 10 Mg Tablet PO 20 mg QPM BARBY Administration Ciprofloxacin 500 mg 06/24/21 21:00 06/25/21 09:02 Ciprofloxacin 250 Mg Tablet PO 06/27/21 09:01 500 mg BID BARBY Administration Heparin Sodium (Porcine) 5,000 unit 06/21/21 21:00 06/24/21 20:28 Heparin 5,000 Unit/Ml Vial SUBQ 5,000 unit BID BARBY Administration Sodium Chloride 500 mls @ 20 mls/hr 06/21/21 22:14 06/24/21 14:41 Normal Saline 0.9% IV Infused Q24H PRN Infusion TKO RATE Sodium Chloride 1,000 mls @ 75 mls/hr 06/24/21 07:42 06/24/21 20:44 Normal Saline 0.9% IV 75 mls/hr .[id number] BARBY Administration Insulin Aspart 1 - 5 unit 06/22/21 21:00 06/25/21 09:02 Insulin Aspart 300 Unit/3 Ml Pen SUBQ Not Given 0800,1200,1700,2100 [facility] Protocol Insulin Glargine 5 unit 06/22/21 21:00 06/24/21 20:30 Insulin Glargine 300 Unit/3 Ml Pen SUBQ 5 unit QPM BARBY Administration Levothyroxine Sodium 112 mcg 06/22/21 07:00 06/25/21 06:31 Levothyroxine 112 Mcg Tablet PO 112 mcg QDAC BARBY Administration Metronidazole 500 mg 06/24/21 17:00 06/25/21 09:01 Metronidazole 250 Mg Tablet PO 06/27/21 12:01 500 mg TIDWM BARBY Administration Mineral Oil 1 applic 06/22/21 05:49 06/22/21 22:17 Min Oil/Dimethicon/Coconut Oil 92 Gm Tube TOP 1 applic PRN PRN Administration Skin Care Pantoprazole Sodium 40 mg 06/22/21 07:00 06/25/21 06:32 Pantoprazole 40 Mg Tablet PO 40 mg QDAC BARBY Administration Saccharomyces Boulardii 250 mg 06/24/21 17:00 06/25/21 09:02 Saccharomyces Boulardii 250 Mg Capsule PO 250 mg BIDWM BARBY Administration Sodium Chloride 10 ml 06/21/21 17:00 06/25/21 06:31 Sodium Chloride Flush 0.9% 10 Ml Syringe IVP Not Given 0100,0900,1700 BARBY Sodium Chloride 10 ml 06/21/21 16:03 06/24/21 04:27 Sodium Chloride Flush 0.9% 10 Ml Syringe IVP 30 ml PRN PRN Administration NEEDED PER PROVIDER ORDERS Sodium Phosphate 250 mg 06/23/21 12:00 06/25/21 09:02 Neutra-Phos 250 Mg Tablet PO 250 mg TIDWM BARBY Administration - Lab Result Fish Bone Diagrams: 06/25/21 04:51 06/25/21 04:51 - Additional Planning My Orders: My Active Orders 06/24/21 09:00 Evaluate and Treat PT [PT] Routine 06/24/21 Lunch Dysphagia Advanced Diet [DIET] 06/24/21 17:00 Saccharomyces Boulardii [Florastor] 250 mg PO BIDWM metroNIDAZOLE [Flagyl] 500 mg PO TIDWM 06/24/21 21:00 Ciprofloxacin [Cipro] 500 mg PO BID 06/26/21 05:00 BMP - BASIC METABOLIC PANEL [CHEM] DAILYLAB CBC - COMP BLD CT W/AUTO DIFF [HEME] DAILYLAB 06/27/21 05:00 BMP - BASIC METABOLIC PANEL [CHEM] DAILYLAB CBC - COMP BLD CT W/AUTO DIFF [HEME] DAILYLAB 06/28/21 05:00 BMP - BASIC METABOLIC PANEL [CHEM] DAILYLAB CBC - COMP BLD CT W/AUTO DIFF [HEME] DAILYLAB Subjective - Subjective Patient Reports: Other (Patient continues to be very alert, awake and oriented x3. She was seated in the bedside chair at time of exam. She denied any complaints except for feeling cold for which she was given a blanket.) Objective Vital Signs: Vital Signs - 24 hr 06/24/21 06/24/21 06/24/21 10:45 11:07 13:00 Temperature 37.1 C Heart Rate [ 70 62 Monitoring electrodes] Heart Rate [ 71 Sitting] Heart Rate [ 60 Supine] Respiratory 13 15 Rate Blood Pressure 148/78 H 169/83 H [Left Brachial artery] Blood Pressure 147/78 H [Sitting] Blood Pressure 139/72 H [Supine] O2 Saturation 96 98 06/24/21 06/24/21 06/25/21 16:38 23:53 07:49 Temperature 36.6 C 36.6 C 36.6 C Heart Rate [ 52 L 63 50 L Monitoring electrodes] Heart Rate [ Sitting] Heart Rate [ Supine] Respiratory 20 20 Rate Blood Pressure 147/58 H 129/49 L 142/61 H [Left Brachial artery] Blood Pressure [Sitting] Blood Pressure [Supine] O2 Saturation 96 93 96 Oxygen O2 Source Room air I&O (Last 24 Hrs): Intake and Output Totals x24h 06/23/21 06/24/21 06/25/21 23:59 23:59 23:59 Intake Total 5694.518 4073.416 Output Total 2339 835 300 Balance 3355.518 3238.416 -300 Comments/Notes: General: Alert, Oriented x3, No acute distress HEENT: PERRLA, EOMI Neck: Supple, No JVD Neuro: Alert, Non Focal, Oriented Times 3 Cardiovascular: Regular rate, Normal S1, Normal S2 Respiratory: Chest non-tender, No respiratory distress, Breath sounds nml Abdomen: Normal bowel sounds, Soft Extremities: No clubbing, No cyanosis, No edema, No tenderness/swelling Skin: No rashes, No breakdown, No significant lesion - Results Results: Laboratory Results WBC 6.0 x10^3/uL (4.8-10.8) 06/25/21 04:51 RBC 3.36 10^6/uL (4.20-5.40) L 06/25/21 04:51 Hgb 10.7 g/dL (12.0-16.0) L 06/25/21 04:51 Hct 31.9 % (37.0-47.0) L 06/25/21 04:51 MCV 94.9 fL (81.0-99.0) 06/25/21 04:51 MCH 31.8 pg (27.0-31.0) H 06/25/21 04:51 MCHC 33.5 g/dL (32.0-36.0) 06/25/21 04:51 RDW 14.6 % (12.0-15.0) 06/25/21 04:51 Plt Count 132 10^3/uL (130-450) 06/25/21 04:51 MPV 11.9 fL (7.9-10.8) H 06/25/21 04:51 Neut # (Auto) 4.5 10^3/uL (1.5-6.6) 06/25/21 04:51 Lymph # (Auto) 0.9 10^3/uL (1.5-3.5) L 06/25/21 04:51 [place] # (Auto) 0.5 10^3/uL (0.0-1.0) 06/25/21 04:51 Eos # (Auto) 0.1 10^3/uL (0.0-0.7) 06/25/21 04:51 Baso # (Auto) 0.0 10^3/uL (0.0-0.1) 06/25/21 04:51 Absolute Nucleated RBC 0.00 x10^3/uL 06/25/21 04:51 Total Counted 100 06/21/21 13:55 Band Neuts % (Manual) 8 % (0-10) 06/21/21 13:55 Abnorm Lymph % (Manual) 0 % 06/21/21 13:55 Nucleated RBC % 0.0 /100WBC 06/25/21 04:51 Neutrophils # (Manual) 20.1 10^3/uL (1.5-6.6) H 06/21/21 13:55 Lymphocytes # (Manual) 0.2 10^3/uL (1.5-3.5) L 06/21/21 13:55 Monocytes # (Manual) 1.5 10^3/uL (0.0-1.0) H 06/21/21 13:55 Eosinophils # (Manual) 0.0 10^3/uL (0-0.7) 06/21/21 13:55 Basophils # (Manual) 0.0 10^3/uL (0-0.1) 06/21/21 13:55 Differential Comment MANUAL DIFFERENTIAL 06/21/21 13:55 WBC Morphology 1+ TOXIC GRANULATION (NORMAL) 06/21/21 13:55 Platelet Estimate NORMAL (130-450,000) (NORMAL) 06/21/21 13:55 Platelet Morphology NORMAL APPEARANCE (NORMAL) 06/21/21 13:55 RBC Morph Micro Appear NORMAL APPEARANCE (NORMAL) 06/21/21 13:55 VBG pH 7.378 (7.31-7.41) 06/24/21 04:15 VBG pCO2 58.9 mmHg (41-51) H 06/21/21 13:55 VBG pO2 31.9 mmHg (25-47) 06/21/21 13:55 VBG HCO3 24.9 mmol/L (23-28) 06/21/21 13:55 VBG Total CO2 26.7 mmol/L (24-29) 06/21/21 13:55 VBG O2 Saturation 56.6 % (60-80) L 06/21/21 13:55 VBG Base Excess -3.8 mmol/L (-2 - +2) L 06/21/21 13:55 Ionized Calcium 1.17 mmol/L (1.15-1.33) 06/24/21 04:15 Sodium 141 mmol/L (135-145) 06/25/21 04:51 Potassium 3.7 mmol/L (3.5-5.0) 06/25/21 04:51 Chloride 108 mmol/L (101-111) 06/25/21 04:51 Carbon Dioxide 24 mmol/L (21-32) 06/25/21 04:51 Anion Gap 9.0 (6-13) 06/25/21 04:51 BUN 18 mg/dL (6-20) 06/25/21 04:51 Creatinine 0.7 mg/dL (0.4-1.0) 06/25/21 04:51 Estimated GFR (MDRD) 81 (>89) L 06/25/21 04:51 Glucose 104 mg/dL (70-100) H 06/25/21 04:51 POC Whole Bld Glucose 102 mg/dL (70 - 100) H 06/25/21 07:43 Estimat Average Glucose 128 mg/dL (70-100) H 06/22/21 04:35 Hemoglobin A1c % 6.1 % (4.27-6.07) H 06/22/21 04:35 Lactic Acid 1.0 mmol/L (0.5-2.2) 06/21/21 21:53 Calcium 8.2 mg/dL (8.5-10.3) L 06/25/21 04:51 Phosphorus 2.5 mg/dL (2.5-4.6) 06/24/21 04:15 Magnesium 2.0 mg/dL (1.7-2.8) 06/24/21 04:15 Total Bilirubin 0.5 mg/dL (0.2-1.0) 06/23/21 04:10 Direct Bilirubin 0.1 mg/dL (0.1-0.5) 06/23/21 04:10 AST 81 IU/L (10-42) H 06/23/21 04:10 ALT 48 IU/L (10-60) 06/23/21 04:10 Alkaline Phosphatase 71 IU/L (42-121) 06/23/21 04:10 Total Protein 5.3 g/dL (6.7-8.2) L 06/23/21 04:10 Albumin 2.5 g/dL (3.2-5.5) L 06/23/21 04:10 Globulin 2.8 g/dL (2.1-4.2) 06/23/21 04:10 Albumin/Globulin Ratio 1.2 (1.0-2.2) 06/21/21 13:55 TSH 1.53 uIU/mL (0.34-5.60) 06/22/21 04:35 Urine Color BROWN 06/21/21 14:20 Urine Clarity CLOUDY (CLEAR) 06/21/21 14:20 Urine pH 5.0 PH (5.0-7.5) 06/21/21 14:20 Ur Specific [place] 1.025 (1.002-1.030) 06/21/21 14:20 Urine Protein 30 mg/dL (NEGATIVE) H 06/21/21 14:20 Urine Glucose (UA) NEGATIVE mg/dL (NEGATIVE) 06/21/21 14:20 Urine Ketones 15 mg/dL (NEGATIVE) H 06/21/21 14:20 Urine Occult Blood LARGE (NEGATIVE) H 06/21/21 14:20 Urine Nitrite POSITIVE (NEGATIVE) H 06/21/21 14:20 Urine Bilirubin MODERATE (NEGATIVE) H 06/21/21 14:20 Urine Urobilinogen 1 (NORMAL) E.U./dL (NORMAL) 06/21/21 14:20 Ur Leukocyte Esterase TRACE (NEGATIVE) H 06/21/21 14:20 Urine RBC 6-10 /HPF (0-5) H 06/21/21 14:20 Urine WBC 4-5 /HPF (0-5) 06/21/21 14:20 Ur Squamous Epith Cells MOD Squamous (<= Few) H 06/21/21 14:20 Urine Bacteria Moderate /HPF (None Seen) H 06/21/21 14:20 Urine Casts 0-2 Granular Casts /LPF 06/21/21 14:20 Urine Mucus Few Strands 06/21/21 14:20 Urine Culture Comments NOT INDICATED 06/21/21 14:20 Nasal Adenovirus (PCR) NOT DETECTED 06/21/21 14:18 Nasal B. parapertussis DNA (PCR) NOT DETECTED 06/21/21 14:18 Nasal Coronavir 229E PCR NOT DETECTED 06/21/21 14:18 Nasal Coronavir HKU1 PCR NOT DETECTED 06/21/21 14:18 Nasal Coronavir NL63 PCR NOT DETECTED 06/21/21 14:18 Nasal Coronavir OC43 PCR NOT DETECTED 06/21/21 14:18 Nasal Enterovir/Rhinovir PCR NOT DETECTED 06/21/21 14:18 Nasal Influenza B PCR NOT DETECTED 06/21/21 14:18 Nasal Influenza A PCR NOT DETECTED 06/21/21 14:18 Nasal Parainfluen 1 PCR NOT DETECTED 06/21/21 14:18 Nasal Parainfluen 2 PCR NOT DETECTED 06/21/21 14:18 Nasal Parainfluen 3 PCR NOT DETECTED 06/21/21 14:18 Nasal Parainfluen 4 PCR NOT DETECTED 06/21/21 14:18 Nasal RSV (PCR) NOT DETECTED 06/21/21 14:18 Nasal Screen MRSA (PCR) NEGATIVE (NEGATIVE) 06/21/21 18:03 Nasal B.pertussis DNA PCR NOT DETECTED 06/21/21 14:18 Nasal C.pneumoniae (PCR) NOT DETECTED 06/21/21 14:18 Ady Human Metapneumo PCR NOT DETECTED 06/21/21 14:18 Nasal M.pneumoniae (PCR) NOT DETECTED 06/21/21 14:18 Nasal SARS-CoV-2 (PCR) NOT DETECTED 06/21/21 14:18 Stl C. diff Tox B Gene NEGATIVE (NEGATIVE) 06/21/21 14:42 Ethyl Alcohol < 5.0 mg/dL 06/21/21 13:55 Ref Lab Test Result REPORT 06/21/21 14:42 Sepsis Event Note (H) - Evaluation Current Stage of Sepsis: Septic shock Possible source of Sepsis: positive: GI tract/intra-abdominal, Unknown - Sepsis Criteria Sepsis Criteria: Recorded Temperature greater than 38.3C or Less than 36C, WBC count greater than 12,000 or less than 4000, [employer]: altered consciousness (unrelated to primary neuro pathology), Metabolic: lactate > 2 mmol/L ABX Reporting Has patient been on IV antibiotics over the past 48 hours?: No
[2021-06-25] MEDS: SODIUM CHLORIDE 0.9% 1,000 ML IV SCH (11:52)
[2021-06-25] MEDS: INSULIN GLARGINE 300 UNIT/3 ML PEN SUBQ SCH (21:03)
[2021-06-25] MEDS: ATORVASTATIN 10 MG TABLET PO SCH (21:04)
[2021-06-26] MEDS: SODIUM CHLORIDE 0.9% 1,000 ML IV SCH ×2 (00:22→13:55)
[2021-06-26 04:32] LABS: BASOPHILS % (AUTO) 0.4 %; EOSINOPHILS # (AUTO) 0.1 10^3/uL (0.0-0.7); EOSINOPHILS % (AUTO) 2.5 %; HCT - HEMATOCRIT 31.2 % (37.0-47.0); HGB - HEMOGLOBIN 10.7 g/dL (12.0-16.0); LYMPHOCYTES # (AUTO) 0.8 10^3/uL (1.5-3.5); LYMPHOCYTES % (AUTO) 14.5 %; MEAN CORPUSCULAR HEMOGLOBIN 32.4 pg (27.0-31.0); MEAN CORPUSCULAR HGB CONC 34.3 g/dL (32.0-36.0); MEAN CORPUSCULAR VOLUME 94.5 fL (81.0-99.0); MEAN PLATELET VOLUME 11.5 fL (7.9-10.8); MONOCYTES # (AUTO) 0.5 10^3/uL (0.0-1.0); MONOCYTES % (AUTO) 10.2 %; NEUTROPHILS # (AUTO) 3.7 10^3/uL (1.5-6.6); PLT - PLATELET COUNT 165 10^3/uL (130-450); RED CELL DISTRIBUTION WIDTH 14.3 % (12.0-15.0); WHITE BLOOD COUNT 5.2 x10^3/uL (4.8-10.8)
[2021-06-26 04:39] LABS: CALCIUM 8.1 mg/dL (8.5-10.3); CREATININE 0.7 mg/dL (0.4-1.0); POTASSIUM 3.5 mmol/L (3.5-5.0)
[2021-06-26] MEDS: SODIUM CHLORIDE FLUSH 0.9% 10 ML SYRINGE IVP SCH ×3 (06:01→16:59)
[2021-06-26] MEDS: PANTOPRAZOLE 40 MG TABLET PO SCH (06:40)
[2021-06-26] MEDS: LEVOTHYROXINE 112 MCG TABLET PO SCH (06:40)
--- NOTE | 2021-06-26 08:08 | PROVIDER PROGRESS NOTE ---
Assessment/Plan - Problem List (1) Septic shock Assessment/Plan: Improved/Resolved Secondary to colitis. Suspect bacterial WBC today is 5.2 Blood cultures are NGTD X4 On flagyl and cipro po for 2 more days Continue IV fluids with NS at 75ml/hr Off levophed on 06/23/21 Patient downgraded to med/surg status PT/OT to evaluate and treat patient Social work to facilitate placement to a SNF (2) Acute kidney injury Assessment/Plan: Likely prerenal. Related to diarrhea. Resolved Creatinine was 0.7. Estimated GFR 81. Patient currently on normal saline at 75 mL/h. Anticipating continued improvement in renal function. Will monitor labs daily. (3) Colitis Assessment/Plan: Suspect bacterial cause. Etiology undetermined. Stool and blood cultures ordered. C. difficile test was negative. Patient is on Cipro and Flagyl Vancomycin discontinued today. (4) Hypothermia Assessment/Plan: Resolved Temperature 37 degree Celsius after patient was warmed (5) Hypothyroidism Assessment/Plan: Synthroid 50 mcg p.o. daily. TSH 1.53 (6) Diabetes mellitus Assessment/Plan: Patient's glimepiride and Victoza held. Lantus 5 units every afternoon and sliding scale insulin. Hemoglobin A1c 6.1. (7) Hyperlipidemia Assessment/Plan: Atorvastatin 20mg po qpm Patient is on Simvastatin 20mg po qpm at home (8) GERD (gastroesophageal reflux disease) Assessment/Plan: 40 mg p.o. Daily AC - Current Meds Current Meds: Current Medications Generic Name Dose Route Start Last Admin Trade Name Freq PRN Reason Stop Dose Admin Acetaminophen 650 mg 06/21/21 16:03 06/23/21 16:59 Acetaminophen 325 Mg Tablet PO 650 mg Q4HR PRN Administration Pain 1 to 4 Atorvastatin Calcium 20 mg 06/22/21 21:00 06/25/21 21:04 Atorvastatin 10 Mg Tablet PO 20 mg QPM BARBY Administration Ciprofloxacin 500 mg 06/24/21 21:00 06/25/21 21:04 Ciprofloxacin 250 Mg Tablet PO 06/27/21 09:01 500 mg BID BARBY Administration Heparin Sodium (Porcine) 5,000 unit 06/21/21 21:00 06/25/21 21:03 Heparin 5,000 Unit/Ml Vial SUBQ 5,000 unit BID BARBY Administration Sodium Chloride 500 mls @ 20 mls/hr 06/21/21 22:14 06/24/21 14:41 Normal Saline 0.9% IV Infused Q24H PRN Infusion TKO RATE Sodium Chloride 1,000 mls @ 75 mls/hr 06/24/21 07:42 06/26/21 00:22 Normal Saline 0.9% IV 75 mls/hr .[id number] BARBY Administration Insulin Aspart 1 - 5 unit 06/22/21 21:00 06/25/21 20:58 Insulin Aspart 300 Unit/3 Ml Pen SUBQ Not Given 0800,1200,1700,2100 [facility] Protocol Insulin Glargine 5 unit 06/22/21 21:00 06/25/21 21:03 Insulin Glargine 300 Unit/3 Ml Pen SUBQ 5 unit QPM BARBY Administration Levothyroxine Sodium 112 mcg 06/22/21 07:00 06/26/21 06:40 Levothyroxine 112 Mcg Tablet PO 112 mcg QDAC BARBY Administration Metronidazole 500 mg 06/24/21 17:00 06/25/21 17:04 Metronidazole 250 Mg Tablet PO 06/27/21 12:01 500 mg TIDWM BARBY Administration Mineral Oil 1 applic 06/22/21 05:49 06/22/21 22:17 Min Oil/Dimethicon/Coconut Oil 92 Gm Tube TOP 1 applic PRN PRN Administration Skin Care Pantoprazole Sodium 40 mg 06/22/21 07:00 06/26/21 06:40 Pantoprazole 40 Mg Tablet PO 40 mg QDAC BARBY Administration Saccharomyces Boulardii 250 mg 06/24/21 17:00 06/25/21 17:03 Saccharomyces Boulardii 250 Mg Capsule PO 250 mg BIDWM BARBY Administration Sodium Chloride 10 ml 06/21/21 17:00 06/26/21 06:01 Sodium Chloride Flush 0.9% 10 Ml Syringe IVP Not Given 0100,0900,1700 ABRBY Sodium Chloride 10 ml 06/21/21 16:03 06/24/21 04:27 Sodium Chloride Flush 0.9% 10 Ml Syringe IVP 30 ml PRN PRN Administration NEEDED PER PROVIDER ORDERS Sodium Phosphate 250 mg 06/23/21 12:00 06/25/21 17:04 Neutra-Phos 250 Mg Tablet PO 250 mg TIDWM BARBY Administration - Lab Result Fish Bone Diagrams: 06/26/21 04:15 06/26/21 04:15 - Additional Planning My Orders: My Active Orders 06/26/21 09:00 polyethylene glycoL 3350 [Miralax] 17 gm PO DAILY 06/27/21 05:00 BMP - BASIC METABOLIC PANEL [CHEM] DAILYLAB CBC - COMP BLD CT W/AUTO DIFF [HEME] DAILYLAB 06/28/21 05:00 BMP - BASIC METABOLIC PANEL [CHEM] DAILYLAB CBC - COMP BLD CT W/AUTO DIFF [HEME] DAILYLAB Subjective - Subjective Patient Reports: Other (Patient continues to be very alert, awake and oriented x3.) Objective Vital Signs: Vital Signs - 24 hr 06/25/21 06/25/21 06/26/21 16:15 23:30 07:46 Temperature 36.3 C L 36.5 C 37.0 C Heart Rate [ 56 L 54 L 78 Monitoring electrodes] Respiratory 18 20 22 Rate Blood Pressure 148/68 H 115/42 L 127/44 L [Left Brachial artery] O2 Saturation 97 95 93 Oxygen O2 Source Room air I&O (Last 24 Hrs): Intake and Output Totals x24h 06/24/21 06/25/21 06/26/21 23:59 23:59 23:59 Intake Total 4073.416 1540 937.5 Output Total 835 700 600 Balance 3238.416 840 337.5 Comments/Notes: General: Alert, Oriented x3, No acute distress HEENT: PERRLA, EOMI Neck: Supple, No JVD Neuro: Alert, Non Focal, Oriented Times 3 Cardiovascular: Regular rate, Normal S1, Normal S2 Respiratory: Chest non-tender, No respiratory distress, Breath sounds nml Abdomen: Normal bowel sounds, Soft Extremities: No clubbing, No cyanosis, No edema, No tenderness/swelling Skin: No rashes, No breakdown, No significant lesion - Results Results: Laboratory Results WBC 5.2 x10^3/uL (4.8-10.8) 06/26/21 04:15 RBC 3.30 10^6/uL (4.20-5.40) L 06/26/21 04:15 Hgb 10.7 g/dL (12.0-16.0) L 06/26/21 04:15 Hct 31.2 % (37.0-47.0) L 06/26/21 04:15 MCV 94.5 fL (81.0-99.0) 06/26/21 04:15 MCH 32.4 pg (27.0-31.0) H 06/26/21 04:15 MCHC 34.3 g/dL (32.0-36.0) 06/26/21 04:15 RDW 14.3 % (12.0-15.0) 06/26/21 04:15 Plt Count 165 10^3/uL (130-450) 06/26/21 04:15 MPV 11.5 fL (7.9-10.8) H 06/26/21 04:15 Neut # (Auto) 3.7 10^3/uL (1.5-6.6) 06/26/21 04:15 Lymph # (Auto) 0.8 10^3/uL (1.5-3.5) L 06/26/21 04:15 [place] # (Auto) 0.5 10^3/uL (0.0-1.0) 06/26/21 04:15 Eos # (Auto) 0.1 10^3/uL (0.0-0.7) 06/26/21 04:15 Baso # (Auto) 0.0 10^3/uL (0.0-0.1) 06/26/21 04:15 Absolute Nucleated RBC 0.00 x10^3/uL 06/26/21 04:15 Total Counted 100 06/21/21 13:55 Band Neuts % (Manual) 8 % (0-10) 06/21/21 13:55 Abnorm Lymph % (Manual) 0 % 06/21/21 13:55 Nucleated RBC % 0.0 /100WBC 06/26/21 04:15 Neutrophils # (Manual) 20.1 10^3/uL (1.5-6.6) H 06/21/21 13:55 Lymphocytes # (Manual) 0.2 10^3/uL (1.5-3.5) L 06/21/21 13:55 Monocytes # (Manual) 1.5 10^3/uL (0.0-1.0) H 06/21/21 13:55 Eosinophils # (Manual) 0.0 10^3/uL (0-0.7) 06/21/21 13:55 Basophils # (Manual) 0.0 10^3/uL (0-0.1) 06/21/21 13:55 Differential Comment MANUAL DIFFERENTIAL 06/21/21 13:55 WBC Morphology 1+ TOXIC GRANULATION (NORMAL) 06/21/21 13:55 Platelet Estimate NORMAL (130-450,000) (NORMAL) 06/21/21 13:55 Platelet Morphology NORMAL APPEARANCE (NORMAL) 06/21/21 13:55 RBC Morph Micro Appear NORMAL APPEARANCE (NORMAL) 06/21/21 13:55 VBG pH 7.378 (7.31-7.41) 06/24/21 04:15 VBG pCO2 58.9 mmHg (41-51) H 06/21/21 13:55 VBG pO2 31.9 mmHg (25-47) 06/21/21 13:55 VBG HCO3 24.9 mmol/L (23-28) 06/21/21 13:55 VBG Total CO2 26.7 mmol/L (24-29) 06/21/21 13:55 VBG O2 Saturation 56.6 % (60-80) L 06/21/21 13:55 VBG Base Excess -3.8 mmol/L (-2 - +2) L 06/21/21 13:55 Ionized Calcium 1.17 mmol/L (1.15-1.33) 06/24/21 04:15 Sodium 139 mmol/L (135-145) 06/26/21 04:15 Potassium 3.5 mmol/L (3.5-5.0) 06/26/21 04:15 Chloride 107 mmol/L (101-111) 06/26/21 04:15 Carbon Dioxide 25 mmol/L (21-32) 06/26/21 04:15 Anion Gap 7.0 (6-13) 06/26/21 04:15 BUN 15 mg/dL (6-20) 06/26/21 04:15 Creatinine 0.7 mg/dL (0.4-1.0) 06/26/21 04:15 Estimated GFR (MDRD) 81 (>89) L 06/26/21 04:15 Glucose 104 mg/dL (70-100) H 06/26/21 04:15 POC Whole Bld Glucose 136 mg/dL (70 - 100) H 06/25/21 20:56 Estimat Average Glucose 128 mg/dL (70-100) H 06/22/21 04:35 Hemoglobin A1c % 6.1 % (4.27-6.07) H 06/22/21 04:35 Lactic Acid 1.0 mmol/L (0.5-2.2) 06/21/21 21:53 Calcium 8.1 mg/dL (8.5-10.3) L 06/26/21 04:15 Phosphorus 2.5 mg/dL (2.5-4.6) 06/24/21 04:15 Magnesium 2.0 mg/dL (1.7-2.8) 06/24/21 04:15 Total Bilirubin 0.5 mg/dL (0.2-1.0) 06/23/21 04:10 Direct Bilirubin 0.1 mg/dL (0.1-0.5) 06/23/21 04:10 AST 81 IU/L (10-42) H 06/23/21 04:10 ALT 48 IU/L (10-60) 06/23/21 04:10 Alkaline Phosphatase 71 IU/L (42-121) 06/23/21 04:10 Total Protein 5.3 g/dL (6.7-8.2) L 06/23/21 04:10 Albumin 2.5 g/dL (3.2-5.5) L 06/23/21 04:10 Globulin 2.8 g/dL (2.1-4.2) 06/23/21 04:10 Albumin/Globulin Ratio 1.2 (1.0-2.2) 06/21/21 13:55 TSH 1.53 uIU/mL (0.34-5.60) 06/22/21 04:35 Urine Color BROWN 06/21/21 14:20 Urine Clarity CLOUDY (CLEAR) 06/21/21 14:20 Urine pH 5.0 PH (5.0-7.5) 06/21/21 14:20 Ur Specific [place] 1.025 (1.002-1.030) 06/21/21 14:20 Urine Protein 30 mg/dL (NEGATIVE) H 06/21/21 14:20 Urine Glucose (UA) NEGATIVE mg/dL (NEGATIVE) 06/21/21 14:20 Urine Ketones 15 mg/dL (NEGATIVE) H 06/21/21 14:20 Urine Occult Blood LARGE (NEGATIVE) H 06/21/21 14:20 Urine Nitrite POSITIVE (NEGATIVE) H 06/21/21 14:20 Urine Bilirubin MODERATE (NEGATIVE) H 06/21/21 14:20 Urine Urobilinogen 1 (NORMAL) E.U./dL (NORMAL) 06/21/21 14:20 Ur Leukocyte Esterase TRACE (NEGATIVE) H 06/21/21 14:20 Urine RBC 6-10 /HPF (0-5) H 06/21/21 14:20 Urine WBC 4-5 /HPF (0-5) 06/21/21 14:20 Ur Squamous Epith Cells MOD Squamous (<= Few) H 06/21/21 14:20 Urine Bacteria Moderate /HPF (None Seen) H 06/21/21 14:20 Urine Casts 0-2 Granular Casts /LPF 06/21/21 14:20 Urine Mucus Few Strands 06/21/21 14:20 Urine Culture Comments NOT INDICATED 06/21/21 14:20 Nasal Adenovirus (PCR) NOT DETECTED 06/21/21 14:18 Nasal B. parapertussis DNA (PCR) NOT DETECTED 06/21/21 14:18 Nasal Coronavir 229E PCR NOT DETECTED 06/21/21 14:18 Nasal Coronavir HKU1 PCR NOT DETECTED 06/21/21 14:18 Nasal Coronavir NL63 PCR NOT DETECTED 06/21/21 14:18 Nasal Coronavir OC43 PCR NOT DETECTED 06/21/21 14:18 Nasal Enterovir/Rhinovir PCR NOT DETECTED 06/21/21 14:18 Nasal Influenza B PCR NOT DETECTED 06/21/21 14:18 Nasal Influenza A PCR NOT DETECTED 06/21/21 14:18 Nasal Parainfluen 1 PCR NOT DETECTED 06/21/21 14:18 Nasal Parainfluen 2 PCR NOT DETECTED 06/21/21 14:18 Nasal Parainfluen 3 PCR NOT DETECTED 06/21/21 14:18 Nasal Parainfluen 4 PCR NOT DETECTED 06/21/21 14:18 Nasal RSV (PCR) NOT DETECTED 06/21/21 14:18 Nasal Screen MRSA (PCR) NEGATIVE (NEGATIVE) 06/21/21 18:03 Nasal B.pertussis DNA PCR NOT DETECTED 06/21/21 14:18 Nasal C.pneumoniae (PCR) NOT DETECTED 06/21/21 14:18 Ady Human Metapneumo PCR NOT DETECTED 06/21/21 14:18 Nasal M.pneumoniae (PCR) NOT DETECTED 06/21/21 14:18 Nasal SARS-CoV-2 (PCR) NOT DETECTED 06/21/21 14:18 Stl C. diff Tox B Gene NEGATIVE (NEGATIVE) 06/21/21 14:42 Ethyl Alcohol < 5.0 mg/dL 06/21/21 13:55 Ref Lab Test Result REPORT 06/21/21 14:42 Sepsis Event Note (H) - Evaluation Current Stage of Sepsis: Septic shock Possible source of Sepsis: positive: GI tract/intra-abdominal, Unknown - Sepsis Criteria Sepsis Criteria: Recorded Temperature greater than 38.3C or Less than 36C, WBC count greater than 12,000 or less than 4000, [employer]: altered consciousness (unrelated to primary neuro pathology), Metabolic: lactate > 2 mmol/L ABX Reporting Has patient been on IV antibiotics over the past 48 hours?: No
[2021-06-26] MEDS: SACCHAROMYCES BOULARDII 250 MG CAPSULE PO SCH ×2 (09:01→16:58)
[2021-06-26] MEDS: metroNIDAZOLE 250 MG TABLET PO SCH ×3 (09:01→16:59)
[2021-06-26] MEDS: NEUTRA-PHOS 250 MG TABLET PO SCH (09:01)
[2021-06-26] MEDS: INSULIN ASPART 300 UNIT/3 ML PEN SUBQ SCH ×4 (09:01→20:36)
[2021-06-26] MEDS: CIPROFLOXACIN 250 MG TABLET PO SCH ×2 (09:01→20:40)
[2021-06-26] MEDS: polyethylene glycoL 3350 17 GM PACKET PO SCH (09:02)
[2021-06-26] MEDS: HEPARIN 5,000 UNIT/ML VIAL SUBQ SCH ×2 (09:06→20:41)
[2021-06-26] MEDS: ACETAMINOPHEN 325 MG TABLET PO PRN (16:58)
[2021-06-26] MEDS ORDERED: SCOPOLAMINE PATCH TOP SCH (18:00)
[2021-06-26] MEDS ORDERED: SODIUM CHLORIDE 0.9% 1,000 ML IV SCH (19:27)
[2021-06-26] MEDS: ATORVASTATIN 10 MG TABLET PO SCH (20:40)
[2021-06-26] MEDS: INSULIN GLARGINE 300 UNIT/3 ML PEN SUBQ SCH (20:41)
[2021-06-27] MEDS: SODIUM CHLORIDE FLUSH 0.9% 10 ML SYRINGE IVP SCH ×2 (04:34→09:12)
[2021-06-27] MEDS: LEVOTHYROXINE 112 MCG TABLET PO SCH (05:40)
[2021-06-27] MEDS: PANTOPRAZOLE 40 MG TABLET PO SCH (05:40)
[2021-06-27 05:54] LABS: BASOPHILS % (AUTO) 0.5 %; EOSINOPHILS # (AUTO) 0.1 10^3/uL (0.0-0.7); HCT - HEMATOCRIT 30.1 % (37.0-47.0); HGB - HEMOGLOBIN 10.2 g/dL (12.0-16.0); LYMPHOCYTES # (AUTO) 0.9 10^3/uL (1.5-3.5); LYMPHOCYTES % (AUTO) 14.4 %; MEAN CORPUSCULAR HEMOGLOBIN 32.5 pg (27.0-31.0); MEAN CORPUSCULAR HGB CONC 33.9 g/dL (32.0-36.0); MEAN CORPUSCULAR VOLUME 95.9 fL (81.0-99.0); MEAN PLATELET VOLUME 10.5 fL (7.9-10.8); MONOCYTES # (AUTO) 0.7 10^3/uL (0.0-1.0); MONOCYTES % (AUTO) 11.3 %; NEUTROPHILS # (AUTO) 4.6 10^3/uL (1.5-6.6); NEUTROPHILS % (AUTO) 71.2 %; PLT - PLATELET COUNT 187 10^3/uL (130-450); RED BLOOD COUNT 3.14 10^6/uL (4.20-5.40); RED CELL DISTRIBUTION WIDTH 14.4 % (12.0-15.0); WHITE BLOOD COUNT 6.4 x10^3/uL (4.8-10.8)
[2021-06-27 06:02] LABS: CALCIUM 7.9 mg/dL (8.5-10.3); CREATININE 0.8 mg/dL (0.4-1.0); POTASSIUM 3.5 mmol/L (3.5-5.0)
--- NOTE | 2021-06-27 08:34 | PROVIDER PROGRESS NOTE ---
Assessment/Plan - Current Meds Current Meds: Current Medications Generic Name Dose Route Start Last Admin Trade Name Freq PRN Reason Stop Dose Admin Acetaminophen 650 mg 06/21/21 16:03 06/26/21 16:58 Acetaminophen 325 Mg Tablet PO 650 mg Q4HR PRN Administration Pain 1 to 4 Atorvastatin Calcium 20 mg 06/22/21 21:00 06/26/21 20:40 Atorvastatin 10 Mg Tablet PO 20 mg QPM BARBY Administration Ciprofloxacin 500 mg 06/24/21 21:00 06/26/21 20:40 Ciprofloxacin 250 Mg Tablet PO 06/27/21 09:01 500 mg BID BARBY Administration Heparin Sodium (Porcine) 5,000 unit 06/21/21 21:00 06/26/21 20:41 Heparin 5,000 Unit/Ml Vial SUBQ 5,000 unit BID BARBY Administration Sodium Chloride 1,000 mls @ 0 mls/hr 06/26/21 19:27 06/26/21 20:53 Normal Saline 0.9% IV 20 mls/hr .Q0M BARBY Administration TKO Insulin Aspart 1 - 5 unit 06/22/21 21:00 06/26/21 20:36 Insulin Aspart 300 Unit/3 Ml Pen SUBQ Not Given 0800,1200,1700,2100 [facility] Protocol Insulin Glargine 5 unit 06/22/21 21:00 06/26/21 20:41 Insulin Glargine 300 Unit/3 Ml Pen SUBQ 5 unit QPM BARBY Administration Levothyroxine Sodium 112 mcg 06/22/21 07:00 06/27/21 05:40 Levothyroxine 112 Mcg Tablet PO 112 mcg QDAC BARBY Administration Metronidazole 500 mg 06/24/21 17:00 06/26/21 16:59 Metronidazole 250 Mg Tablet PO 06/27/21 12:01 500 mg TIDWM BARBY Administration Mineral Oil 1 applic 06/22/21 05:49 06/22/21 22:17 Min Oil/Dimethicon/Coconut Oil 92 Gm Tube TOP 1 applic PRN PRN Administration Skin Care Pantoprazole Sodium 40 mg 06/22/21 07:00 06/27/21 05:40 Pantoprazole 40 Mg Tablet PO 40 mg QDAC BARBY Administration Polyethylene Glycol 17 gm 06/26/21 09:00 06/26/21 09:02 Polyethylene Glycol 3350 17 Gm Packet PO 17 gm DAILY BARBY Administration Saccharomyces Boulardii 250 mg 06/24/21 17:00 06/26/21 16:58 Saccharomyces Boulardii 250 Mg Capsule PO 250 mg BIDWM BARBY Administration Scopolamine HBr 1 patch 06/26/21 18:00 06/26/21 18:05 Scopolamine Patch TOP 1 patch Q3D BARBY Administration Sodium Chloride 10 ml 06/21/21 17:00 06/27/21 04:34 Sodium Chloride Flush 0.9% 10 Ml Syringe IVP 10 ml 0100,0900,1700 BARBY Administration Sodium Chloride 10 ml 06/21/21 16:03 06/24/21 04:27 Sodium Chloride Flush 0.9% 10 Ml Syringe IVP 30 ml PRN PRN Administration NEEDED PER PROVIDER ORDERS - Lab Result Fish Bone Diagrams: 06/27/21 05:45 06/27/21 05:45 - Additional Planning My Orders: My Active Orders 06/26/21 09:00 polyethylene glycoL 3350 [Miralax] 17 gm PO DAILY 06/26/21 18:00 Scopolamine Patch [Transderm-Scop] 1 patch TOP Q3D 06/28/21 05:00 BMP - BASIC METABOLIC PANEL [CHEM] DAILYLAB CBC - COMP BLD CT W/AUTO DIFF [HEME] DAILYLAB Objective Vital Signs: Vital Signs - 24 hr 06/26/21 06/26/21 06/27/21 11:37 15:57 01:50 Temperature 36.2 C L 36.5 C Heart Rate [ 69 60 55 L Monitoring electrodes] Respiratory 20 18 Rate Blood Pressure 147/86 H 144/60 H 126/54 L [Right Brachial artery] O2 Saturation 96 95 Oxygen O2 Source Room air I&O (Last 24 Hrs): Intake and Output Totals x24h 06/25/21 06/26/21 06/27/21 23:59 23:59 23:59 Intake Total 1540 2947.5 Output Total 700 1850 200 Balance 840 1097.5 -200 - Results Results: Laboratory Results WBC 6.4 x10^3/uL (4.8-10.8) 06/27/21 05:45 RBC 3.14 10^6/uL (4.20-5.40) L 06/27/21 05:45 Hgb 10.2 g/dL (12.0-16.0) L 06/27/21 05:45 Hct 30.1 % (37.0-47.0) L 06/27/21 05:45 MCV 95.9 fL (81.0-99.0) 06/27/21 05:45 MCH 32.5 pg (27.0-31.0) H 06/27/21 05:45 MCHC 33.9 g/dL (32.0-36.0) 06/27/21 05:45 RDW 14.4 % (12.0-15.0) 06/27/21 05:45 Plt Count 187 10^3/uL (130-450) 06/27/21 05:45 MPV 10.5 fL (7.9-10.8) 06/27/21 05:45 Neut # (Auto) 4.6 10^3/uL (1.5-6.6) 06/27/21 05:45 Lymph # (Auto) 0.9 10^3/uL (1.5-3.5) L 06/27/21 05:45 [place] # (Auto) 0.7 10^3/uL (0.0-1.0) 06/27/21 05:45 Eos # (Auto) 0.1 10^3/uL (0.0-0.7) 06/27/21 05:45 Baso # (Auto) 0.0 10^3/uL (0.0-0.1) 06/27/21 05:45 Absolute Nucleated RBC 0.00 x10^3/uL 06/27/21 05:45 Total Counted 100 06/21/21 13:55 Band Neuts % (Manual) 8 % (0-10) 06/21/21 13:55 Abnorm Lymph % (Manual) 0 % 06/21/21 13:55 Nucleated RBC % 0.0 /100WBC 06/27/21 05:45 Neutrophils # (Manual) 20.1 10^3/uL (1.5-6.6) H 06/21/21 13:55 Lymphocytes # (Manual) 0.2 10^3/uL (1.5-3.5) L 06/21/21 13:55 Monocytes # (Manual) 1.5 10^3/uL (0.0-1.0) H 06/21/21 13:55 Eosinophils # (Manual) 0.0 10^3/uL (0-0.7) 06/21/21 13:55 Basophils # (Manual) 0.0 10^3/uL (0-0.1) 06/21/21 13:55 Differential Comment MANUAL DIFFERENTIAL 06/21/21 13:55 WBC Morphology 1+ TOXIC GRANULATION (NORMAL) 06/21/21 13:55 Platelet Estimate NORMAL (130-450,000) (NORMAL) 06/21/21 13:55 Platelet Morphology NORMAL APPEARANCE (NORMAL) 06/21/21 13:55 RBC Morph Micro Appear NORMAL APPEARANCE (NORMAL) 06/21/21 13:55 VBG pH 7.378 (7.31-7.41) 06/24/21 04:15 VBG pCO2 58.9 mmHg (41-51) H 06/21/21 13:55 VBG pO2 31.9 mmHg (25-47) 06/21/21 13:55 VBG HCO3 24.9 mmol/L (23-28) 06/21/21 13:55 VBG Total CO2 26.7 mmol/L (24-29) 06/21/21 13:55 VBG O2 Saturation 56.6 % (60-80) L 06/21/21 13:55 VBG Base Excess -3.8 mmol/L (-2 - +2) L 06/21/21 13:55 Ionized Calcium 1.17 mmol/L (1.15-1.33) 06/24/21 04:15 Sodium 139 mmol/L (135-145) 06/27/21 05:45 Potassium 3.5 mmol/L (3.5-5.0) 06/27/21 05:45 Chloride 107 mmol/L (101-111) 06/27/21 05:45 Carbon Dioxide 25 mmol/L (21-32) 06/27/21 05:45 Anion Gap 7.0 (6-13) 06/27/21 05:45 BUN 16 mg/dL (6-20) 06/27/21 05:45 Creatinine 0.8 mg/dL (0.4-1.0) 06/27/21 05:45 Estimated GFR (MDRD) 70 (>89) L 06/27/21 05:45 Glucose 99 mg/dL (70-100) 06/27/21 05:45 POC Whole Bld Glucose 103 mg/dL (70 - 100) H 06/27/21 07:35 Estimat Average Glucose 128 mg/dL (70-100) H 06/22/21 04:35 Hemoglobin A1c % 6.1 % (4.27-6.07) H 06/22/21 04:35 Lactic Acid 1.0 mmol/L (0.5-2.2) 06/21/21 21:53 Calcium 7.9 mg/dL (8.5-10.3) L 06/27/21 05:45 Phosphorus 2.5 mg/dL (2.5-4.6) 06/24/21 04:15 Magnesium 2.0 mg/dL (1.7-2.8) 06/24/21 04:15 Total Bilirubin 0.5 mg/dL (0.2-1.0) 06/23/21 04:10 Direct Bilirubin 0.1 mg/dL (0.1-0.5) 06/23/21 04:10 AST 81 IU/L (10-42) H 06/23/21 04:10 ALT 48 IU/L (10-60) 06/23/21 04:10 Alkaline Phosphatase 71 IU/L (42-121) 06/23/21 04:10 Total Protein 5.3 g/dL (6.7-8.2) L 06/23/21 04:10 Albumin 2.5 g/dL (3.2-5.5) L 06/23/21 04:10 Globulin 2.8 g/dL (2.1-4.2) 06/23/21 04:10 Albumin/Globulin Ratio 1.2 (1.0-2.2) 06/21/21 13:55 TSH 1.53 uIU/mL (0.34-5.60) 06/22/21 04:35 Urine Color BROWN 06/21/21 14:20 Urine Clarity CLOUDY (CLEAR) 06/21/21 14:20 Urine pH 5.0 PH (5.0-7.5) 06/21/21 14:20 Ur Specific [place] 1.025 (1.002-1.030) 06/21/21 14:20 Urine Protein 30 mg/dL (NEGATIVE) H 06/21/21 14:20 Urine Glucose (UA) NEGATIVE mg/dL (NEGATIVE) 06/21/21 14:20 Urine Ketones 15 mg/dL (NEGATIVE) H 06/21/21 14:20 Urine Occult Blood LARGE (NEGATIVE) H 06/21/21 14:20 Urine Nitrite POSITIVE (NEGATIVE) H 06/21/21 14:20 Urine Bilirubin MODERATE (NEGATIVE) H 06/21/21 14:20 Urine Urobilinogen 1 (NORMAL) E.U./dL (NORMAL) 06/21/21 14:20 Ur Leukocyte Esterase TRACE (NEGATIVE) H 06/21/21 14:20 Urine RBC 6-10 /HPF (0-5) H 06/21/21 14:20 Urine WBC 4-5 /HPF (0-5) 06/21/21 14:20 Ur Squamous Epith Cells MOD Squamous (<= Few) H 06/21/21 14:20 Urine Bacteria Moderate /HPF (None Seen) H 06/21/21 14:20 Urine Casts 0-2 Granular Casts /LPF 06/21/21 14:20 Urine Mucus Few Strands 06/21/21 14:20 Urine Culture Comments NOT INDICATED 06/21/21 14:20 Nasal Adenovirus (PCR) NOT DETECTED 06/21/21 14:18 Nasal B. parapertussis DNA (PCR) NOT DETECTED 06/21/21 14:18 Nasal Coronavir 229E PCR NOT DETECTED 06/21/21 14:18 Nasal Coronavir HKU1 PCR NOT DETECTED 06/21/21 14:18 Nasal Coronavir NL63 PCR NOT DETECTED 06/21/21 14:18 Nasal Coronavir OC43 PCR NOT DETECTED 06/21/21 14:18 Nasal Enterovir/Rhinovir PCR NOT DETECTED 06/21/21 14:18 Nasal Influenza B PCR NOT DETECTED 06/21/21 14:18 Nasal Influenza A PCR NOT DETECTED 06/21/21 14:18 Nasal Parainfluen 1 PCR NOT DETECTED 06/21/21 14:18 Nasal Parainfluen 2 PCR NOT DETECTED 06/21/21 14:18 Nasal Parainfluen 3 PCR NOT DETECTED 06/21/21 14:18 Nasal Parainfluen 4 PCR NOT DETECTED 06/21/21 14:18 Nasal RSV (PCR) NOT DETECTED 06/21/21 14:18 Nasal Screen MRSA (PCR) NEGATIVE (NEGATIVE) 06/21/21 18:03 Nasal B.pertussis DNA PCR NOT DETECTED 06/21/21 14:18 Nasal C.pneumoniae (PCR) NOT DETECTED 06/21/21 14:18 Ady Human Metapneumo PCR NOT DETECTED 06/21/21 14:18 Nasal M.pneumoniae (PCR) NOT DETECTED 06/21/21 14:18 Nasal SARS-CoV-2 (PCR) NOT DETECTED 06/21/21 14:18 Stl C. diff Tox B Gene NEGATIVE (NEGATIVE) 06/21/21 14:42 Ethyl Alcohol < 5.0 mg/dL 06/21/21 13:55 Ref Lab Test Result REPORT 06/21/21 14:42 Sepsis Event Note (H) - Evaluation Current Stage of Sepsis: Septic shock Possible source of Sepsis: positive: GI tract/intra-abdominal, Unknown - Sepsis Criteria Sepsis Criteria: Recorded Temperature greater than 38.3C or Less than 36C, WBC count greater than 12,000 or less than 4000, MIDDLEWARE SYSTEMS ARCHITECT: altered consciousness (unrelated to primary neuro pathology), Metabolic: lactate > 2 mmol/L
[2021-06-27] MEDS: INSULIN ASPART 300 UNIT/3 ML PEN SUBQ SCH ×2 (09:05→11:22)
[2021-06-27] MEDS: SACCHAROMYCES BOULARDII 250 MG CAPSULE PO SCH (09:11)
[2021-06-27] MEDS: metroNIDAZOLE 250 MG TABLET PO SCH ×2 (09:11→12:03)
[2021-06-27] MEDS: CIPROFLOXACIN 250 MG TABLET PO SCH (09:11)
[2021-06-27] MEDS: polyethylene glycoL 3350 17 GM PACKET PO SCH (09:12)
[2021-06-27] MEDS: HEPARIN 5,000 UNIT/ML VIAL SUBQ SCH (09:12)
[2021-06-27 11:45] VITALS: BP 133/66
--- NOTE | 2021-06-27 13:11 | Discharge Plan ---
Discharge Plan Condition: Critical No Smoking: If you smoke, Please STOP! Call for help.
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
--- NOTE | 2021-06-27 13:12 | Discharge Plan ---
Discharge Plan for SNF / [facility] - Discharge Plan And Transition Orders Problem Reviewed?: Yes Disposition: 03 SNF DC/Xfer Condition: Critical Allergies and Adverse Reactions: Allergies Allergy/AdvReac Type Severity Reaction Status Date / Time adhesive tape Allergy Rash Verified 06/21/21 13:04 meperidine [From Demerol] Allergy Unknown Verified 06/21/21 13:04 Penicillins Allergy Unknown Verified 06/21/21 13:04 propoxyphene [From Darvon] Allergy Unknown Verified 06/21/21 13:04 Plan of Treatment: 06/21/2021 obtunded, hypothermic and with diarrhea. Work-up showed that she was in septic shock thought to be secondary to unspecified colitis. Patient was admitted to the ICU started on pressors, antibiotics and IV hydration. She received vancomycin, Cipro and Flagyl. Vancomycin was discontinued after 2 days. Patient's clinical condition improved steadily On IV Cipro and Flagyl. This was subsequently switched to oral antibiotics. She received a total of 7 days of antibiotics during her hospital stay. She was subsequently weaned off pressors. Her mentation improves significantly through the course of her stay. She was downgraded from ICU to MedSur status. She was seen by physical therapy and deemed to be in need of rehab. Consequently she is being discharged to [facility] for rehab. She may follow-up with her primary care physician as needed. - SNF / [facility] Transition Orders Admit to (Facility): [facility] Under the care of (Name): Dr Stephane Skelton Discharge Diagnosis: Septic shock: Acute. 2/2 Colitis. Resolved Acute kidney injury. Likely due to dehydration from diarrhea. Resolved with IV hydration Colitis: s/p 7 days of antibiotics. Cipro and Flagyl. Resolved. Hypothermia: Acute. Resolved Hypothyroidism: Chronic. Continue home medications Diabetes mellitus: HgA1c 6.01. Continue glimepiride Hyperlipidemia: Chronic. Continue home medications GERD: Chronic. Continue home medications Medicare Certification Statement: I certify that Post Hospital usp care is medically necessary on a continuing basis for any of the conditions for which she/he is receiving care during hospitalization. Notify PCP of admission and forward orders to primary provider for signature. Weight on admission and: Weekly Other Notification Orders: Call PCP immediately if patient develops dyspnea, chest pain/tightness or edema. House Bowel Program: Yes Additional Bowel Program Orders: If no BM after 2 days, nurse may give M.O.M. 30ml PO PRN and/or ducolax Supp 1 [place] and/or MILLY 250mg P.O., and/or senna 1-2 tabs PO. On day 3 nurse may give repeat above order until residents constipation is resolved. Medication Orders: PLEASE REFER TO THE DISCHARGE MEDICATION LIST. - Medications New Prescriptions: Meclizine [Antivert] 12.5 mg PO Q6H 5 Days #20 tablet
[2021-06-27 14:20] LABS: B. PARAPERTUSSIS- RESP PCR PAN NOT DETECTED; B. PERTUSSIS- RESP PCR PANEL NOT DETECTED; C. PNEUMONIAE- RESP PCR PANEL NOT DETECTED; CORONAVIRUS 229E-RESP PCR NOT DETECTED; CORONAVIRUS HKU1-RESP PCR NOT DETECTED; CORONAVIRUS NL63-RESP PCR NOT DETECTED; CORONAVIRUS OC43-RESP PCR NOT DETECTED; HUMAN METAPNEUMOVIRUS NOT DETECTED; INFLUENZA A- RESP PCR PANEL NOT DETECTED; INFLUENZA B - RESP PCR PANEL NOT DETECTED; M. PNEUMONIAE- RESP PCR PANEL NOT DETECTED; PARAINFLUENZA VIRUS 1 NOT DETECTED; PARAINFLUENZA VIRUS 2 NOT DETECTED; PARAINFLUENZA VIRUS 3 NOT DETECTED; PARAINFLUENZA VIRUS 4 NOT DETECTED; RHINOVIRUS/ENTEROVIRUS NOT DETECTED; RSV- RESP PCR PANEL NOT DETECTED; SARS-CoV-2 -RESP PCR PANEL NOT DETECTED
--- NOTE | 2021-06-27 14:23 | Discharge Plan ---
"Discharge Plan for SNF / [facility] - Discharge Plan And Transition Orders Problem Reviewed?: Yes Disposition: 03 SNF DC/Xfer Condition: Stable Allergies and Adverse Reactions: Allergies Allergy/AdvReac Type Severity Reaction Status Date / Time adhesive tape Allergy Rash Verified 06/21/21 13:04 meperidine [From Demerol] Allergy Unknown Verified 06/21/21 13:04 Penicillins Allergy Unknown Verified 06/21/21 13:04 propoxyphene [From Darvon] Allergy Unknown Verified 06/21/21 13:04 Plan of Treatment: 06/21/2021 obtunded, hypothermic and with diarrhea. Work-up showed that she was in septic shock thought to be secondary to unspecified colitis. Patient was admitted to the ICU started on pressors, antibiotics and IV hydration. She received vancomycin, Cipro and Flagyl. Vancomycin was discontinued after 2 days. Patient's clinical condition improved steadily On IV Cipro and Flagyl. This was subsequently switched to oral antibiotics. She received a total of 7 days of antibiotics during her hospital stay. She was subsequently weaned off pressors. Her mentation improves significantly through the course of her stay. She was downgraded from ICU to MedSur status. She was seen by physical therapy and deemed to be in need of rehab. Consequently she is being discharged to [facility] for rehab. She may follow-up with her primary care physician as needed. - SNF / [facility] Transition Orders Admit to (Facility): [facility] Under the care of (Name): Stephane Skelton Discharge Diagnosis: Septic shock: Acute. 2/2 Colitis. Resolved Acute kidney injury. Likely due to dehydration from diarrhea. Resolved with IV hydration Colitis: s/p 6 days of antibiotics. Cipro and Flagyl. Resolved. Hypothermia: Acute. Resolved Hypothyroidism: Chronic. Continue home medications Diabetes mellitus: HgA1c 6.01. Continue glimepiride Hyperlipidemia: Chronic. Continue home medications GERD: Chronic. Continue home medications Medicare Certification Statement: I certify that Post Hospital fpc care is medically necessary on a continuing basis for any of the conditions for which she/he is receiving care during hospitalization. Notify PCP of admission and forward orders to primary provider for signature. Weight on admission and: Weekly Other Notification Orders: Call PCP immediately if patient develops dyspnea, chest pain/tightness or edema. House Bowel Program: Yes Additional Bowel Program Orders: If no BM after 2 days, nurse may give M.O.M. 30ml PO PRN and/or ducolax Supp 1 [place] and/or MILLY 250mg P.O., and/or senna 1-2 tabs PO. On day 3 nurse may give repeat above order until residents constipation is resolved. Medication Orders: PLEASE REFER TO THE DISCHARGE MEDICATION LIST. - Medications New Prescriptions: Meclizine [Antivert] 12.5 mg PO Q6H 5 Days #20 tablet - Diet Type: Diabetic May have monthly special meal: Yes - Therapies | Activity Therapy: Evaluation | Treat if indicated: PT, OT Rehabilitation Potential: Maximize functional status, Return to independent living Activity: Per Therapy Weight Bearing: Full Weight Assistance Devices: Walker"
== END 2021-06-27 14:51 | DRG 871 ==
LOC: ED 12:45 → ICU 16:03 → MS3 06-24 14:01
PROVIDERS: ADMIT Internal Medicine; ATTEND Internal Medicine
PROC: 02HV33Z Insertion of Infusion Device into Superior Vena Cava, Percutaneous Approach (ICD-10-PCS; principal; 2021-06-21)
DX: A41.9 Sepsis, unspecified organism (principal); R65.21 Severe sepsis with septic shock; R65.20 Severe sepsis without septic shock; N17.9 Acute kidney failure, unspecified; R41.0 Disorientation, unspecified; R68.0 Hypothermia, not associated with low environmental temperature; I10 Essential (primary) hypertension; K52.9 Noninfective gastroenteritis and colitis, unspecified; E78.00 Pure hypercholesterolemia, unspecified; T68.XXXA Hypothermia, initial encounter; F32.9 Major depressive disorder, single episode, unspecified; X31.XXXA Exposure to excessive natural cold, initial encounter; E03.9 Hypothyroidism, unspecified; E11.9 Type 2 diabetes mellitus without complications; E78.5 Hyperlipidemia, unspecified; K21.9 Gastro-esophageal reflux disease without esophagitis; R42 Dizziness and giddiness; Z66 Do not resuscitate; Z20.822 Contact with and (suspected) exposure to COVID-19; Z87.891 Personal history of nicotine dependence; R41.82 Altered mental status, unspecified; E86.0 Dehydration; Z79.84 Long term (current) use of oral hypoglycemic drugs
CPT/HCPCS: 36415; 51702; 70450; 71045; 74177; 80048; 80053; 80076; 81001; 81599; 82330; 82803; 83036; 83605; 83735; 84100; 84132; 84443; 85025; 87040; 87150; 87493; 87631; 93005; 96374; 96375; 97110; 97162; 97166; 97530; 99285; A6250; A9270; G0480; J1815; J3370; J3490; Q9967; 0202U; 80320; 87045; 87046; 87086

== ENCOUNTER 2021-06-27 14:46 | Outpatient (CLI) | payer MEDICARE, OTHER | END 2021-06-27 14:47 | LOC: EMS 14:46 | PROVIDERS: ATTEND Internal Medicine | DX: A41.9 Sepsis, unspecified organism (principal); N17.9 Acute kidney failure, unspecified; K52.9 Noninfective gastroenteritis and colitis, unspecified; T68.XXXA Hypothermia, initial encounter; E03.9 Hypothyroidism, unspecified; E11.29 Type 2 diabetes mellitus with other diabetic kidney complication; E78.5 Hyperlipidemia, unspecified; K21.9 Gastro-esophageal reflux disease without esophagitis; Z74.01 Bed confinement status | CPT/HCPCS: A0425; A0428 ==

== ENCOUNTER 2021-06-29 13:31 | Outpatient (CLI) | payer MEDICARE, OTHER ==
[2021-06-29 13:40] LABS: BASOPHILS # (AUTO) 0.1 10^3/uL (0.0-0.1); BASOPHILS % (AUTO) 0.8 %; EOSINOPHILS # (AUTO) 0.1 10^3/uL (0.0-0.7); EOSINOPHILS % (AUTO) 0.8 %; HCT - HEMATOCRIT 31.6 % (37.0-47.0); HGB - HEMOGLOBIN 10.9 g/dL (12.0-16.0); LYMPHOCYTES # (AUTO) 0.9 10^3/uL (1.5-3.5); LYMPHOCYTES % (AUTO) 11.1 %; MEAN CORPUSCULAR HEMOGLOBIN 33.1 pg (27.0-31.0); MEAN CORPUSCULAR HGB CONC 34.5 g/dL (32.0-36.0); MONOCYTES # (AUTO) 0.7 10^3/uL (0.0-1.0); MONOCYTES % (AUTO) 8.5 %; NEUTROPHILS # (AUTO) 6.1 10^3/uL (1.5-6.6); NEUTROPHILS % (AUTO) 78.3 %; PLT - PLATELET COUNT 405 10^3/uL (130-450); RED BLOOD COUNT 3.29 10^6/uL (4.20-5.40); RED CELL DISTRIBUTION WIDTH 14.2 % (12.0-15.0); WHITE BLOOD COUNT 7.8 x10^3/uL (4.8-10.8)
[2021-06-29 13:51] LABS: CALCIUM 8.2 mg/dL (8.5-10.3); CREATININE 0.7 mg/dL (0.4-1.0); POTASSIUM 3.7 mmol/L (3.5-5.0)
== END 2021-06-29 13:32 | disposition home or self-care (01) ==
LOC: LAB 13:31
DX: A09 Infectious gastroenteritis and colitis, unspecified (principal); R65.21 Severe sepsis with septic shock
CPT/HCPCS: 36415; 80048; 85025

== ENCOUNTER 2021-06-29 14:39 | Outpatient (CLI) | payer MEDICARE, OTHER | END 2021-06-29 14:40 | disposition critical access hospital (66) | LOC: EMS 14:39 | DX: R10.84 Generalized abdominal pain (principal); R50.9 Fever, unspecified | CPT/HCPCS: A0425; A0429 ==

== ENCOUNTER 2021-06-29 14:45 | Emergency (ER) | payer MEDICARE, OTHER ==
--- NOTE | 2021-06-29 14:56 | ED Physician Documentation ---
PD HPI ABD PAIN - Stated complaint Stated Complaint: ABD PX - Additional information Additional information: Patient is 76-year-old female with chief complaint of diarrhea and abdominal pain. Comes to us from [facility], where she is currently in treatment after hospitalization for sepsis secondary to colitis and acute kidney injury. Report from the facility was she was febrile today complaining of increasing abdominal pain. Patient denies any abdominal pain at this time but does report that she has had lower abdominal discomfort associated with increased diarrhea. Also reports feeling generally tired. Review of Systems Ten Systems: 10 systems reviewed and negative Constitutional: reports: Fever Eyes: denies: Loss of vision Ears: denies: Loss of hearing Nose: denies: Rhinorrhea / runny nose Throat: denies: Dental pain / toothache Cardiac: denies: Chest pain / pressure Respiratory: denies: Dyspnea GI: reports: Abdominal Pain, Diarrhea : denies: Dysuria Skin: denies: Rash Neurologic: denies: Generalized weakness PD PAST MEDICAL HISTORY - Past Medical History Cardiovascular: Hypertension, High cholesterol Respiratory: Asthma Neuro: None Endocrine/Autoimmune: Type 2 diabetes, HyPOthyroidism GI: None : None Psych: Depression Musculoskeletal: None Derm: None - Present Medications Home Medications: Ambulatory Orders Medication Instructions Recorded Confirmed Felodipine [Felodipine ER] 10 mg PO DAILY 07/30/17 06/21/21 Simvastatin 20 mg PO QPM 07/30/17 06/21/21 lisinopriL [Lisinopril] 20 mg PO QPM 07/30/17 06/21/21 Calcium Carbonate [Calcium] 600 mg PO DAILY 01/30/21 06/21/21 Levothyroxine Sodium [Synthroid] 150 mcg PO DAILY 01/30/21 06/21/21 diphenhydrAMINE [Benadryl] 50 mg PO QPM 01/30/21 06/21/21 Fexofenadine HCl 180 mg PO DAILY 06/21/21 06/21/21 Glimepiride [Amaryl] 1 mg PO BID 06/21/21 06/21/21 Liraglutide [Victoza 2-Joaquín] 1.2 mg SUBQ DAILY 06/21/21 06/21/21 Omeprazole Magnesium 20 mg PO DAILY 06/21/21 06/21/21 Oxybutynin [Ditropan] 5 mg PO DAILY 06/21/21 06/21/21 Meclizine [Antivert] 12.5 mg PO Q6H 5 Days #20 tablet 06/27/21 Ciprofloxacin HCl [Cipro] 500 mg PO BID #20 tablet 06/29/21 Lactobac 41/B.bifid,Lactis/Fos 1 each PO BID #30 cap 06/29/21 [Ultimate Probiotic-10 25 Billn] metroNIDAZOLE [Flagyl] 500 mg PO TID 10 Days #30 tab 06/29/21 - Allergies Allergies/Adverse Reactions: Allergies Allergy/AdvReac Type Severity Reaction Status Date / Time adhesive tape Allergy Rash Verified 06/29/21 15:02 meperidine [From Demerol] Allergy Unknown Verified 06/29/21 15:02 Penicillins Allergy Unknown Verified 06/29/21 15:02 propoxyphene [From Darvon] Allergy Unknown Verified 06/29/21 15:02 - Social History Does the pt smoke?: No Smoking Status: Former smoker Does the pt drink ETOH?: No Does the pt have substance abuse?: No - POLST Patient has POLST: No POLST Status: DNR PD ED PE NORMAL - General General: Alert and oriented X 3 - HEENT HEENT: Atraumatic. No: Moist mucous membranes - Neck Neck: Supple, no meningeal sign - Cardiac Cardiac: RRR - Respiratory Respiratory: No respiratory distress - Abdomen Abdomen: Normal bowel sounds, Other (Obese abdomen) - Female Female : Deferred - Rectal Rectal: Deferred - Derm Derm: Normal color - Extremities Extremities: No deformity - Neuro Neuro: Alert and oriented X 3, chain dyer 2-12 intact, No motor deficit, Normal speech - Psych Psych: Normal mood Results - Vitals Vitals: Vital Signs - 24 hr 06/29/21 06/29/21 06/29/21 14:53 15:44 18:00 Temperature 38.6 C H Heart Rate 86 80 71 Respiratory 20 13 21 Rate Blood Pressure 150/66 H 135/56 H 128/47 L O2 Saturation 92 95 91 L 06/29/21 18:23 Temperature 37.1 C Heart Rate 65 Respiratory 20 Rate Blood Pressure 120/58 L O2 Saturation 95 Oxygen O2 Source Room air - EKG (time done) 1512 Rate: Rate (enter#) (76) Rhythm: NSR Marshall: Normal Intervals: Normal CO, QRS normal QRS: Normal Ischemia: Normal ST segments Compare to prior EKG: Unchanged from prior EKG Computer interpretation: Agree with computer - Labs Labs: Laboratory Tests 06/29/21 06/29/21 06/29/21 15:12 15:29 15:29 WBC 8.3 RBC 3.55 L Hgb 11.7 L Hct 34.0 L MCV 95.8 MCH 33.0 H MCHC 34.4 RDW 14.2 Plt Count 430 MPV 9.6 Neut # (Auto) 6.4 Lymph # (Auto) 1.0 L [place] # (Auto) 0.8 Eos # (Auto) 0.0 Baso # (Auto) 0.1 Absolute Nucleated RBC 0.00 Nucleated RBC % 0.0 INR (Fingerstick) Sodium 138 Potassium 3.5 Chloride 100 L Carbon Dioxide 25 Anion Gap 13.0 BUN 11 Creatinine 0.7 Estimated GFR (MDRD) 81 L Glucose 96 Lactic Acid Calcium 8.5 Magnesium 1.8 Total Bilirubin 0.7 AST 24 ALT 30 Alkaline Phosphatase 52 Total Protein 6.3 L Albumin 2.8 L Globulin 3.5 Albumin/Globulin Ratio 0.8 L Lipase 38 Urine Color Urine Clarity Urine pH Ur Specific [place] Urine Protein Urine Glucose (UA) Urine Ketones Urine Occult Blood Urine Nitrite Urine Bilirubin Urine Urobilinogen Ur Leukocyte Esterase Urine RBC Urine WBC Ur Squamous Epith Cells Urine Bacteria Urine Yeast Ur Microscopic Review Urine Culture Comments Nasal Adenovirus (PCR) NOT DETECTED Nasal B. parapertussis DNA (PCR) NOT DETECTED Nasal Coronavir 229E PCR NOT DETECTED Nasal Coronavir HKU1 PCR NOT DETECTED Nasal Coronavir NL63 PCR NOT DETECTED Nasal Coronavir OC43 PCR NOT DETECTED Nasal Enterovir/Rhinovir PCR NOT DETECTED Nasal Influenza B PCR NOT DETECTED Nasal Influenza A PCR NOT DETECTED Nasal Parainfluen 1 PCR NOT DETECTED Nasal Parainfluen 2 PCR NOT DETECTED Nasal Parainfluen 3 PCR NOT DETECTED Nasal Parainfluen 4 PCR NOT DETECTED Nasal RSV (PCR) NOT DETECTED Nasal B.pertussis DNA PCR NOT DETECTED Nasal C.pneumoniae (PCR) NOT DETECTED Ady Human Metapneumo PCR NOT DETECTED Nasal M.pneumoniae (PCR) NOT DETECTED Nasal SARS-CoV-2 (PCR) NOT DETECTED 06/29/21 06/29/21 06/29/21 15:29 15:38 15:58 WBC RBC Hgb Hct MCV MCH MCHC RDW Plt Count MPV Neut # (Auto) Lymph # (Auto) [place] # (Auto) Eos # (Auto) Baso # (Auto) Absolute Nucleated RBC Nucleated RBC % INR (Fingerstick) 1.2 Sodium Potassium Chloride Carbon Dioxide Anion Gap BUN Creatinine Estimated GFR (MDRD) Glucose Lactic Acid 0.7 Calcium Magnesium Total Bilirubin AST ALT Alkaline Phosphatase Total Protein Albumin Globulin Albumin/Globulin Ratio Lipase Urine Color YELLOW Urine Clarity HAZY Urine pH 6.0 Ur Specific [place] 1.020 Urine Protein NEGATIVE Urine Glucose (UA) NEGATIVE Urine Ketones 15 H Urine Occult Blood NEGATIVE Urine Nitrite NEGATIVE Urine Bilirubin NEGATIVE Urine Urobilinogen 0.2 (NORMAL) Ur Leukocyte Esterase NEGATIVE Urine RBC None Seen Urine WBC 0-3 Ur Squamous Epith Cells RARE Squamous Urine Bacteria Rare Urine Yeast PRESENT Ur Microscopic Review INDICATED Urine Culture Comments NOT INDICATED Nasal Adenovirus (PCR) Nasal B. parapertussis DNA (PCR) Nasal Coronavir 229E PCR Nasal Coronavir HKU1 PCR Nasal Coronavir NL63 PCR Nasal Coronavir OC43 PCR Nasal Enterovir/Rhinovir PCR Nasal Influenza B PCR Nasal Influenza A PCR Nasal Parainfluen 1 PCR Nasal Parainfluen 2 PCR Nasal Parainfluen 3 PCR Nasal Parainfluen 4 PCR Nasal RSV (PCR) Nasal B.pertussis DNA PCR Nasal C.pneumoniae (PCR) Ady Human Metapneumo PCR Nasal M.pneumoniae (PCR) Nasal SARS-CoV-2 (PCR) PD MEDICAL DECISION MAKING - ED course Complexity details: reviewed old records, reviewed results, re-evaluated patient, d/w patient ED course: Patient is 76-year-old male [place] concern for fever, altered mentation, abdominal pain. Recent hospitalization 06/21 for colitis, acute kidney injury. Patient did have low-grade fever in the emergency department which was treated with Toradol but was otherwise hemodynamically stable. Physical exam very reassuring and that there was no guarding, rebound, rigidity or indications of medicine on abdominal exam. EKG as outlined above negative for indications of acute cardiac ischemia or dysrhythmia. Labs obtained generally within normal limits are nonactionable. Of note patient is without any significant leukocytosis and does not actually have clear serous criteria sufficient to warrant a diagnosis of sepsis. I did obtain a CT of her abdomen a nd pelvis which did demonstrate some ongoing colitis either recurrent or incompletely treated during her recent hospitalization. She was given IV fluids and passed a p.o. trial while in the emergency department. She was reevaluated on multiple occasions and found to be resting comfortably and in no acute distress. She tolerated p.o. antibiotics in the emergency department. At this time I will discharge her back to her care facility on an ongoing course of ciprofloxacin, metronidazole as well as with a probiotic. I encouraged careful follow-up with her outpatient team and or return to the emergency department for any new or worsening symptoms. Departure - Departure Disposition: 01 Home, Self Care Clinical Impression: Colitis Condition: Fair Instructions: Diarrhea Prescriptions: Ciprofloxacin HCl [Cipro] 500 mg PO BID #20 tablet metroNIDAZOLE [Flagyl] 500 mg PO TID 10 Days #30 tab Lactobac 41/B.bifid,Lactis/Fos [Ultimate Probiotic- 25 Billn] 1 each PO BID #30 cap Comments: Thank you for allowing us to care for you today at [facility]. All the lab test performed in the emergency department today were very reassuring. The CT scan did show recurrent colitis. We were unable to obtain an adequate stool sample in the emergency department in order to test for Clostridium difficile colitis and you would benefit from following up with your primary care doctor in order to arrange gathering stool sample for this testing. I would like you to begin a course of oral antibiotics. I will be discharging you with prescription for antibiotics as well as a probiotic did like you to begin taking twice a day. I recommend that you work at staying well-hydrated and increase your intake and natural fiber full foods. If it anytime you have any new or worsening symptoms please not hesitate to return to the emergency department.
[2021-06-29] MEDS ORDERED: SODIUM CHLORIDE 0.9% 1,000 ML IV STA (14:58)
[2021-06-29 15:39] LABS: BASOPHILS # (AUTO) 0.1 10^3/uL (0.0-0.1); BASOPHILS % (AUTO) 0.7 %; EOSINOPHILS % (AUTO) 0.4 %; HGB - HEMOGLOBIN 11.7 g/dL (12.0-16.0); LYMPHOCYTES % (AUTO) 11.8 %; MEAN CORPUSCULAR HGB CONC 34.4 g/dL (32.0-36.0); MEAN CORPUSCULAR VOLUME 95.8 fL (81.0-99.0); MEAN PLATELET VOLUME 9.6 fL (7.9-10.8); MONOCYTES # (AUTO) 0.8 10^3/uL (0.0-1.0); MONOCYTES % (AUTO) 9.4 %; NEUTROPHILS # (AUTO) 6.4 10^3/uL (1.5-6.6); NEUTROPHILS % (AUTO) 77.2 %; PLT - PLATELET COUNT 430 10^3/uL (130-450); RED BLOOD COUNT 3.55 10^6/uL (4.20-5.40); RED CELL DISTRIBUTION WIDTH 14.2 % (12.0-15.0); WHITE BLOOD COUNT 8.3 x10^3/uL (4.8-10.8)
[2021-06-29 15:49] LABS: ALBUMIN 2.8 g/dL (3.2-5.5); ALBUMIN/GLOBULIN RATIO 0.8 (1.0-2.2); BILIRUBIN,TOTAL 0.7 mg/dL (0.2-1.0); CALCIUM 8.5 mg/dL (8.5-10.3); CREATININE 0.7 mg/dL (0.4-1.0); MAGNESIUM 1.8 mg/dL (1.7-2.8); POTASSIUM 3.5 mmol/L (3.5-5.0); TOTAL PROTEIN 6.3 g/dL (6.7-8.2)
--- NOTE | 2021-06-29 15:56 | XRAY Report ---
PROCEDURE: Chest 1 View X-Ray INDICATIONS: chest pain TECHNIQUE: One view of the chest was acquired. COMPARISON: Plain films dated 1115 FINDINGS: Surgical changes and devices: None. Lungs and pleura: No pleural effusions or pneumothorax. Moderate bilateral perihilar and basilar air space opacity. Mediastinum: Mediastinal contours appear normal. Heart size is normal. Bones and chest wall: No suspicious bony lesions. Overlying soft tissues appear unremarkable. IMPRESSION: Moderate atypical pneumonia. Reviewed by: Paola Blair MD on 06/29/2021 3:55 PM PST Approved by: Paola Blair MD on 06/29/2021 3:55 PM PST Station ID: [id number]
[2021-06-29 15:58] LABS: BILIRUBIN,URINE NEGATIVE (NEGATIVE); GLUCOSE, URINE (UA) NEGATIVE (NEGATIVE); KETONES,URINE (UA) 15 mg/dL (NEGATIVE); LEUKOCYTE ESTERASE, URINE NEGATIVE (NEGATIVE); NITRITE,URINE NEGATIVE (NEGATIVE); OCCULT BLOOD,URINE NEGATIVE (NEGATIVE); PROTEIN,URINE NEGATIVE (NEGATIVE); UROBILINOGEN,URINE 0.2 (NORMAL) E.U./dL (NORMAL)
[2021-06-29 16:01] LABS: CLARITY,URINE HAZY (CLEAR)
[2021-06-29 16:07] LABS: BACTERIA,URINE Rare /HPF (None Seen); RBC,URINE None Seen /HPF (0-5); SQUAMOUS EPITHELIAL CELL,UR RARE Squamous (<= Few); WBC,URINE 0-3 /HPF (0-5)
[2021-06-29 16:08] LABS: YEAST,URINE PRESENT
[2021-06-29] MEDS ORDERED: KETOROLAC 30 MG/ML VIAL IVP STA (16:19)
[2021-06-29 16:48] LABS: B. PARAPERTUSSIS- RESP PCR PAN NOT DETECTED; B. PERTUSSIS- RESP PCR PANEL NOT DETECTED; C. PNEUMONIAE- RESP PCR PANEL NOT DETECTED; CORONAVIRUS 229E-RESP PCR NOT DETECTED; CORONAVIRUS HKU1-RESP PCR NOT DETECTED; CORONAVIRUS NL63-RESP PCR NOT DETECTED; CORONAVIRUS OC43-RESP PCR NOT DETECTED; HUMAN METAPNEUMOVIRUS NOT DETECTED; INFLUENZA A- RESP PCR PANEL NOT DETECTED; INFLUENZA B - RESP PCR PANEL NOT DETECTED; M. PNEUMONIAE- RESP PCR PANEL NOT DETECTED; PARAINFLUENZA VIRUS 1 NOT DETECTED; PARAINFLUENZA VIRUS 2 NOT DETECTED; PARAINFLUENZA VIRUS 3 NOT DETECTED; PARAINFLUENZA VIRUS 4 NOT DETECTED; RHINOVIRUS/ENTEROVIRUS NOT DETECTED; RSV- RESP PCR PANEL NOT DETECTED; SARS-CoV-2 -RESP PCR PANEL NOT DETECTED
[2021-06-29] MEDS ORDERED: IOVERSOL 320 100 ML VIAL IVP ONE ×2 (16:52→16:53)
--- NOTE | 2021-06-29 18:07 | CT Report ---
PROCEDURE: CT brain without contrast INDICATIONS: Altered mental status TECHNIQUE: Noncontrast 4.5 mm thick angled axial sections acquired from the foramen magnum to the vertex. For r adiation dose reduction, the following was used: automated exposure control, adjustment of mA and/or kV according to patient size. COMPARISON: June 21, 2021 FINDINGS: Image quality: Excellent. CSF spaces: Basal cisterns are patent. No extra-axial fluid collections. Ventricles are normal in size and shape. Brain: No midline shift. No intracranial masses or hemorrhage. Saleh-white matter interface is norm al. Mild atrophy and multifocal white matter ischemic change. Skull and face: Calvarium and visualized facial bones are intact, without suspicious lesions. Sinuses: Visualized sinuses and mastoids are clear. IMPRESSION: Atrophy and chronic ischemic change without acute hemorrhage or mass effect. Reviewed by: Ralph Figueroa MD on 06/29/2021 5:06 PM [place] Approved by: Ralph Figueroa MD on 06/29/2021 5:06 PM [place] Station ID: [id number]
--- NOTE | 2021-06-29 18:15 | CT Report ---
PROCEDURE: Abdomen/Pelvis W INDICATIONS: Fever, abd pain CONTRAST: IV CONTRAST: Optiray 320 ml: 100 PO CONTRAST: *NO PO CONTRAST TECHNIQUE: After the administration of IV contrast, 5 mm thick sections acquired from the diaphragms to the symp hysis. 5 mm thick coronal and sagittal reformats were acquired. For radiation dose reduction, the f ollowing was used: automated exposure control, adjustment of mA and/or kV according to patient size. COMPARISON: Prior abdomen pelvis CT, 06/21/2021. Correlation is made with the accompanying head CT a nd chest radiograph, 06/29/2021. FINDINGS: Image quality: Excellent. ABDOMEN: Lung bases: Small bilateral pleural effusions are seen. Heart size is normal. Dense calcification ca n be seen of the mitral valve annulus. Moderate coronary artery calcification is seen. Solid organs: Liver and spleen are normal in size and enhancement. Gallbladder has been removed. B iliary system is non dilated. Pancreas enhances normally. No adrenal nodules. Kidneys demonstrate normal size and enhancement, without hydronephrosis. Peritoneum and bowel: There is a moderate amount of stool seen within the proximal colon. Within the distal colon beginning at the level of the distal transverse colon and continuing through the sigmoid colon, there is moderate wall thickening, with minimal surrounding inflammatory change. No abscess f ormation is seen. No free fluid or air. No dilated loops of small bowel are seen. Nodes and vessels: No retroperitoneal or mesenteric adenopathy by size criteria. Aorta and inferior vena cava are normal in size. Miscellaneous: No ventral hernias. PELVIS: Genitourinary: Bladder wall thickness is normal. This patient is status post hysterectomy. No adnex al masses can be seen. Miscellaneous: No inguinal hernias or adenopathy. Bones: No suspicious bony lesions. No vertebral body compression fractures. Age-appropriate degene rative changes are seen. Lumbosacral fixation hardware can be seen. IMPRESSION: Moderate wall thickening is seen involving the entire distal colon. Please could relate with potential infectious and inflammatory causes of colitis, including C. difficile colitis. Ischemi a is possible in a patient of this age, yet considered to be less likely. No findings of perforation or abscess can be seen. There is a moderate amount of stool seen within the proximal colon, which is likely secondary to cons tipation. There are small bilateral pleural effusions. Incidental note is made of: Moderate coronary artery calcification Dense mitral valve annulus calcification Cholecystectomy Hysterectomy Lumbosacral fixation hardware Reviewed by: Chalino Holbrook MD on 06/29/2021 5:13 PM AKST Approved by: Chalino Holbrook MD on 06/29/2021 5:13 PM BILL Station ID: [id number]
[2021-06-29] MEDS ORDERED: CIPROFLOXACIN 250 MG TABLET PO STA (18:26)
[2021-06-29] MEDS ORDERED: metroNIDAZOLE 250 MG TABLET PO STA (18:26)
[2021-06-29 19:56] VITALS: BP 119/63
[2021-07-04] MEDS ORDERED: IOVERSOL 320 100 ML VIAL IVP ONE (07:20)
== END 2021-06-29 19:56 | disposition home or self-care (01) ==
LOC: EDUNIT# → ED 14:45
DX: K52.9 Noninfective gastroenteritis and colitis, unspecified (principal); Z87.891 Personal history of nicotine dependence; Z20.822 Contact with and (suspected) exposure to COVID-19; Z74.01 Bed confinement status; Z66 Do not resuscitate; A09 Infectious gastroenteritis and colitis, unspecified; R65.21 Severe sepsis with septic shock
CPT/HCPCS: 36415; 70450; 71045; 74177; 80048; 80053; 81001; 83605; 83690; 83735; 85025; 85610; 87040; 87329; 87631; 93005; 96374; 99283; 99284; A9270; Q9967; 0202U; 81003; 87086

== ENCOUNTER 2021-06-29 19:59 | Outpatient (CLI) | payer MEDICARE, OTHER | END 2021-06-29 20:00 | disposition home or self-care (01) | LOC: EMS 19:59 | PROVIDERS: ATTEND Student in an Organized Health Care Education/Training Program | DX: Z74.01 Bed confinement status (principal); R53.1 Weakness | CPT/HCPCS: A0425; A0428 ==

== ENCOUNTER 2021-07-22 11:13 | Outpatient (CLI) | payer MEDICARE, OTHER ==
[2021-07-22 11:35] LABS: BASOPHILS % (AUTO) 0.6 %; EOSINOPHILS # (AUTO) 0.2 10^3/uL (0.0-0.7); EOSINOPHILS % (AUTO) 3.7 %; HCT - HEMATOCRIT 40.7 % (37.0-47.0); HGB - HEMOGLOBIN 13.4 g/dL (12.0-16.0); LYMPHOCYTES # (AUTO) 1.5 10^3/uL (1.5-3.5); LYMPHOCYTES % (AUTO) 32.5 %; MEAN CORPUSCULAR HGB CONC 32.9 g/dL (32.0-36.0); MEAN CORPUSCULAR VOLUME 97.1 fL (81.0-99.0); MEAN PLATELET VOLUME 10.3 fL (7.9-10.8); MONOCYTES # (AUTO) 0.4 10^3/uL (0.0-1.0); MONOCYTES % (AUTO) 8.4 %; NEUTROPHILS # (AUTO) 2.5 10^3/uL (1.5-6.6); NEUTROPHILS % (AUTO) 54.6 %; PLT - PLATELET COUNT 327 10^3/uL (130-450); RED BLOOD COUNT 4.19 10^6/uL (4.20-5.40); RED CELL DISTRIBUTION WIDTH 14.5 % (12.0-15.0); WHITE BLOOD COUNT 4.6 x10^3/uL (4.8-10.8)
[2021-07-22 11:46] LABS: CALCIUM 9.2 mg/dL (8.5-10.3); CREATININE 0.6 mg/dL (0.4-1.0); POTASSIUM 3.1 mmol/L (3.5-5.0)
== END 2021-07-22 11:14 | disposition home or self-care (01) ==
LOC: LAB.R 11:13
PROVIDERS: ATTEND Family Medicine
DX: N17.9 Acute kidney failure, unspecified (principal); R65.21 Severe sepsis with septic shock
CPT/HCPCS: 80048; 85025

== ENCOUNTER 2021-07-29 11:50 | Outpatient (CLI) | payer MEDICARE, OTHER ==
[2021-07-29 13:22] LABS: CALCIUM 8.8 mg/dL (8.5-10.3); CREATININE 0.5 mg/dL (0.4-1.0); POTASSIUM 3.3 mmol/L (3.5-5.0)
== END 2021-07-29 23:59 | disposition home or self-care (01) ==
LOC: LAB.R 11:50
PROVIDERS: ATTEND Hospitalist
DX: E87.6 Hypokalemia (principal)
CPT/HCPCS: 80048

== ENCOUNTER 2021-08-01 12:47 | Outpatient (CLI) | payer MEDICARE, OTHER ==
[2021-08-01 13:11] LABS: CALCIUM 9.6 mg/dL (8.5-10.3); CREATININE 0.5 mg/dL (0.4-1.0); POTASSIUM 3.9 mmol/L (3.5-5.0)
== END 2021-08-01 12:48 | disposition home or self-care (01) ==
LOC: LAB.R 12:47
DX: E11.9 Type 2 diabetes mellitus without complications (principal)
CPT/HCPCS: 80048

== ENCOUNTER 2021-08-15 14:23 | Outpatient (CLI) | payer MEDICARE, OTHER ==
[2021-08-15 14:59] LABS: BASOPHILS # (AUTO) 0.1 10^3/uL (0.0-0.1); BASOPHILS % (AUTO) 0.9 %; EOSINOPHILS # (AUTO) 0.2 10^3/uL (0.0-0.7); EOSINOPHILS % (AUTO) 2.7 %; HCT - HEMATOCRIT 39.6 % (37.0-47.0); HGB - HEMOGLOBIN 13.4 g/dL (12.0-16.0); LYMPHOCYTES # (AUTO) 1.7 10^3/uL (1.5-3.5); LYMPHOCYTES % (AUTO) 29.7 %; MEAN CORPUSCULAR HGB CONC 33.8 g/dL (32.0-36.0); MEAN CORPUSCULAR VOLUME 97.5 fL (81.0-99.0); MONOCYTES # (AUTO) 0.5 10^3/uL (0.0-1.0); MONOCYTES % (AUTO) 9.3 %; NEUTROPHILS # (AUTO) 3.2 10^3/uL (1.5-6.6); NEUTROPHILS % (AUTO) 57.2 %; PLT - PLATELET COUNT 333 10^3/uL (130-450); RED BLOOD COUNT 4.06 10^6/uL (4.20-5.40); RED CELL DISTRIBUTION WIDTH 14.1 % (12.0-15.0); WHITE BLOOD COUNT 5.6 x10^3/uL (4.8-10.8)
[2021-08-15 15:17] LABS: ALBUMIN 3.3 g/dL (3.2-5.5); ALBUMIN/GLOBULIN RATIO 1.1 (1.0-2.2); BILIRUBIN,TOTAL 0.5 mg/dL (0.2-1.0); CALCIUM 9.4 mg/dL (8.5-10.3); CREATININE 0.5 mg/dL (0.4-1.0); POTASSIUM 3.8 mmol/L (3.5-5.0); TOTAL PROTEIN 6.3 g/dL (6.7-8.2)
== END 2021-08-15 14:24 | disposition home or self-care (01) ==
LOC: LAB.R 14:23
PROVIDERS: ATTEND Hospitalist
DX: E46 Unspecified protein-calorie malnutrition (principal)
CPT/HCPCS: 80053; 85025

== ENCOUNTER 2021-10-06 16:32 | Outpatient (CLI) | payer OTHER, MEDICARE ==
[2021-10-06 16:50] LABS: BASOPHILS # (AUTO) 0.1 10^3/uL (0.0-0.1); BASOPHILS % (AUTO) 0.8 %; EOSINOPHILS # (AUTO) 0.2 10^3/uL (0.0-0.7); EOSINOPHILS % (AUTO) 2.6 %; HCT - HEMATOCRIT 41.6 % (37.0-47.0); HGB - HEMOGLOBIN 13.8 g/dL (12.0-16.0); LYMPHOCYTES # (AUTO) 1.8 10^3/uL (1.5-3.5); MEAN CORPUSCULAR HEMOGLOBIN 32.1 pg (27.0-31.0); MEAN CORPUSCULAR HGB CONC 33.2 g/dL (32.0-36.0); MEAN CORPUSCULAR VOLUME 96.7 fL (81.0-99.0); MEAN PLATELET VOLUME 9.8 fL (7.9-10.8); MONOCYTES # (AUTO) 0.6 10^3/uL (0.0-1.0); MONOCYTES % (AUTO) 9.1 %; NEUTROPHILS # (AUTO) 3.7 10^3/uL (1.5-6.6); NEUTROPHILS % (AUTO) 59.3 %; PLT - PLATELET COUNT 304 10^3/uL (130-450); RED CELL DISTRIBUTION WIDTH 13.6 % (12.0-15.0); WHITE BLOOD COUNT 6.3 x10^3/uL (4.8-10.8)
[2021-10-06 16:54] LABS: ALBUMIN 3.5 g/dL (3.2-5.5); ALBUMIN/GLOBULIN RATIO 1.3 (1.0-2.2); BILIRUBIN,TOTAL 0.4 mg/dL (0.2-1.0); CALCIUM 9.1 mg/dL (8.5-10.3); CREATININE 0.6 mg/dL (0.4-1.0); POTASSIUM 3.7 mmol/L (3.5-5.0); TOTAL PROTEIN 6.3 g/dL (6.7-8.2)
[2021-10-06 20:11] LABS: ESTIMATED AVERAGE GLUCOSE 123 mg/dL (70-100); HEMOGLOBIN A1c% 5.9 % (4.27-6.07)
== END 2021-10-06 16:33 | disposition home or self-care (01) ==
LOC: LAB.R 16:32
DX: N17.9 Acute kidney failure, unspecified (principal); I73.9 Peripheral vascular disease, unspecified; E03.9 Hypothyroidism, unspecified; E11.9 Type 2 diabetes mellitus without complications
CPT/HCPCS: 80053; 83036; 84443; 85025

== ENCOUNTER 2022-08-15 10:52 | Outpatient (CLI) | payer MEDICARE, OTHER ==
[2022-08-15 17:50] LABS: BASOPHILS % (AUTO) 0.7 %; EOSINOPHILS # (AUTO) 0.1 10^3/uL (0.0-0.7); HGB - HEMOGLOBIN 15.2 g/dL (12.0-16.0); LYMPHOCYTES # (AUTO) 1.5 10^3/uL (1.5-3.5); LYMPHOCYTES % (AUTO) 25.2 %; MEAN CORPUSCULAR HEMOGLOBIN 31.3 pg (27.0-31.0); MEAN CORPUSCULAR HGB CONC 32.3 g/dL (32.0-36.0); MEAN CORPUSCULAR VOLUME 96.7 fL (81.0-99.0); MEAN PLATELET VOLUME 10.5 fL (7.9-10.8); MONOCYTES # (AUTO) 0.5 10^3/uL (0.0-1.0); MONOCYTES % (AUTO) 8.9 %; NEUTROPHILS # (AUTO) 3.9 10^3/uL (1.5-6.6); PLT - PLATELET COUNT 354 10^3/uL (130-450); RED BLOOD COUNT 4.86 10^6/uL (4.20-5.40); RED CELL DISTRIBUTION WIDTH 12.9 % (12.0-15.0); WHITE BLOOD COUNT 6.1 x10^3/uL (4.8-10.8)
[2022-08-15 18:08] LABS: ALBUMIN 4.1 g/dL (3.2-5.5); ALBUMIN/GLOBULIN RATIO 1.1 (1.0-2.2); ALKALINE PHOSPHATASE 77 IU/L (42-121); ALT ALANINE AMINOTRANSFERASE 26 IU/L (10-60); AST ASPARTATE AMINOTRANSFERASE 23 IU/L (10-42); BILIRUBIN,TOTAL 0.6 mg/dL (0.2-1.0); BUN - BLOOD UREA NITROGEN 14 mg/dL (6-20); CALCIUM 9.7 mg/dL (8.5-10.3); CARBON DIOXIDE - CO2 25 mmol/L (21-32); CHLORIDE 100 mmol/L (101-111); CHOL/HDL RATIO 2.5 (<4.4); CHOLESTEROL 146 mg/dL; CREATININE 0.7 mg/dL (0.4-1.0); GFR - MDRD 81 (>89); GLUCOSE 102 mg/dL (70-100); HDL CHOLESTEROL 59 mg/dL; LDL CHOLESTEROL,CALCULATED 65 mg/dL; LDL/HDL RATIO 1.1 (<4.4); POTASSIUM 3.8 mmol/L (3.5-5.0); SODIUM 136 mmol/L (135-145); TOTAL PROTEIN 7.8 g/dL (6.7-8.2); TRIGLYCERIDES 111 mg/dL; VLDL CHOLESTEROL 22 mg/dL
[2022-08-15 18:18] LABS: THYROID STIMULATING HORMONE 1.38 uIU/mL (0.34-5.60)
[2022-08-15 21:29] LABS: ESTIMATED AVERAGE GLUCOSE 123 mg/dL (70-100); HEMOGLOBIN A1c% 5.9 % (4.27-6.07)
== END 2022-08-15 10:53 | disposition home or self-care (01) ==
LOC: LAB.N 10:52
PROVIDERS: ATTEND Physician Assistant Medical
DX: E11.9 Type 2 diabetes mellitus without complications (principal); K21.9 Gastro-esophageal reflux disease without esophagitis
CPT/HCPCS: 36415; 80053; 80061; 83036; 83721; 84443; 85025